=== PATIENT | female | born 1955 | race Caucasian/White ===

== ENCOUNTER 2017-12-08 14:32 | Inpatient (IN) | payer OTHER, SELFPAY ==
--- NOTE | 2017-12-08 15:38 | RAD REPORT ---
EXAM DESCRIPTION: RAD - Pelvis - 12/08/2017 3:20 pm CLINICAL HISTORY: Pelvic pain status fall FINDINGS: Subcapital moderately displaced impacted fracture involves the left femur. No dislocation is seen
--- NOTE | 2017-12-08 15:39 | RAD REPORT ---
EXAM DESCRIPTION: RAD - Femur Left - 12/08/2017 3:20 pm CLINICAL HISTORY: Left leg pain status post fall FINDINGS: Subcapital moderately displaced impacted fracture involves the left femur. No dislocation is seen .
[2017-12-08] MEDS ORDERED: MORPHINE 4 MG/ML SYR ONE (16:07)
[2017-12-08] MEDS ORDERED: ONDANSETRON 4 MG/2 ML VIAL ONE (16:08)
--- NOTE | 2017-12-08 16:14 | ER ---
Nurse's Notes [facility] Name: Adelaida Scott Age: 62 yrs Sex: Female : 1955 Arrival Date: 12/08/2017 Time: 14:31 Bed 18 Private MD: Diagnosis: Fracture of unspecified part of neck of left femur Presentation: 12/08 14:40 Presenting complaint: EMS states: She was sitting on the side of her bed and fell to [facility] the ground, denies hitting head, denies LOC, c/o left hip and leg pain. Care prior to arrival: Medication(s) given: Normal saline infusion, 1000 mL, IV initiated. 20 GA, in the right antecubital area, Glucose check: 192. Mechanism of Injury: Fall. Trauma event details: Injury occurred in the [facility], Injury occurred: at home. Injury occurred: December 08, 2017 Injury occurred at: 12:00. 14:40 Acuity: CLEMENTINA 3 [facility] 14:40 Method Of Arrival: EMS: [facility] 14:51 Transition of care: patient was not received from another setting of care. Onset of [facility] symptoms was December 08, 2017. Risk Assessment: Do you want to hurt yourself or someone else? Patient reports no desire to harm self or others. Initial Sepsis Screen: Does the patient meet any 2 criteria? No. Patient's initial sepsis screen is negative. Does the patient have a suspected source of infection? No. Patient's initial sepsis screen is negative. Triage Assessment: 14:51 Neuro: Reports none. [facility] Trauma Activation: Alert Physician: ED Physician; Name: Faustino; Notified At: 14:36; Arrived At: 14:36 Physician: General Surgeon; Name: ; Notified At: 14:36; Arrived At: Physician: Radiology; Name: Marimar; Notified At: 14:36; Arrived At: 14:37 Physician: Respiratory; Name: ; Notified At: 14:36; Arrived At: Physician: Lab; Name: ; Notified At: 14:36; Arrived At: Historical: - Allergies: 14:49 No Known Allergies; jl7 - Home Meds: 14:49 Cyclobenzaprine Oral [Active]; clonazepam Oral [Active]; Cymbalta oral oral [Active]; jl7 Wellbutrin Oral [Active]; tramadol Oral [Active]; - PMHx: 14:49 Hypertension; Depression; Insomnia; jl7 - Immunization history: Last tetanus immunization: unknown. - Family history:: not pertinent. - Social history:: Smoking status: Patient/guardian denies using tobacco, Patient uses alcohol, admits to "couple of beers" a day. 3-[address] drugs, marijuana, daily. - Ebola Screening: : No symptoms or risks identified at this time. - Hospitalizations: : No recent hospitalization is reported. Screenin:40 Abuse screen: Denies threats or abuse. Denies injuries from another. Tuberculosis jl7 screening: No symptoms or risk factors identified. 14:49 Nutritional screening: No deficits noted. Fall Risk Fall in past 12 months (25 points). jl7 Total Crawford Fall Scale indicates Low Risk Score (25-44 pts). Fall prevention measures have been instituted. Side Rails Up X 2 Placed close to Nursing Station Frequent Obs/Assesments occuring As available Patient and Family Educated on Fall Prevention Program and strategies. Primary Survey: 14:40 A: Airway: patent. Breathing/Chest: Respiratory pattern: regular, Respiratory effort: jl7 spontaneous, unlabored, Chest inspection: symmetrical rise and fall of the chest. Circulation: Skin color: pink. Disability Alert. 14:55 Reassessment Airway Airway Patent Breathing/Chest Respiratory pattern Regular jl7 Respiratory effort Spontaneous Unlabored Chest inspection Symmetrical Circulation Color Ty[place] Disability Alert. Secondary Survey: 14:55 HEENT: No deficits noted. Gastrointestinal: No deficits noted. : No deficits noted. jl7 Musculoskeletal: Range of motion: limited in left hip and left knee. Assessment: 14:40 General: Appears in no apparent distress. uncomfortable, Behavior is cooperative, jl7 agitated. Pain: Complains of pain in left thigh Pain currently is 8 out of 10 on a pain scale. Neuro: Level of Consciousness is awake, alert, obeys commands, Oriented to person, place, time, situation. EENT: No signs and/or symptoms were reported regarding the EENT system. Cardiovascular: Patient's skin is warm and dry. Respiratory: Airway is patent Respiratory effort is even, unlabored, Respiratory pattern is regular, symmetrical. Derm: Skin is pink, warm \\T\\ dry. Musculoskeletal: Range of motion: limited in left hip and left knee. 16:00 Reassessment: No changes from previously documented assessment. Patient and/or family jl7 updated on plan of care and expected duration. Pain level reassessed. Patient is alert, oriented x 3, equal unlabored respirations, skin warm/dry/pink. 17:00 Reassessment: Patient appears in no apparent distress at this time. Patient and/or jl7 family updated on plan of care and expected duration. Pain level reassessed. Patient is alert, oriented x 3, equal unlabored respirations, skin warm/dry/pink. 18:15 Reassessment: Miramontes's traction applied Patient states feeling better. jl7 19:45 General: Appears in no apparent distress. Behavior is calm, cooperative. Pain: ea Complains of pain in left knee Pain currently is 3 out of 10 on a pain scale. Neuro: Level of Consciousness is awake, alert, obeys commands, Oriented to person, place, time, situation. Cardiovascular: Patient's skin is warm and dry. Respiratory: Airway is patent Respiratory effort is even, unlabored, Respiratory pattern is regular, symmetrical. Derm: Skin is pink, warm \\T\\ dry. Musculoskeletal: Range of motion: limited in left knee Pt has miramontes traction to left knee leg. 20:00 Reassessment: Patient and/or family updated on plan of care and expected duration. Pain ea level reassessed. Patient is alert, oriented x 3, equal unlabored respirations, skin warm/dry/pink. Vital Signs: 14:40 BP 96 / 59; Pulse 85; Resp 13 S; Pulse Ox 100% on R/A; Weight 45.81 kg (R); Height 5 jl7 ft. 3 in. (160.02 cm) (R); Pain 8/10; 14:40 Temp 98.2(O); jl7 15:00 BP 104 / 73; Pulse 82; Resp 16 S; Pulse Ox 100% on R/A; jl7 15:30 BP 110 / 71; Pulse 83; Resp 16 S; Pulse Ox 100% on R/A; jl7 16:00 BP 113 / 69; Pulse 90; Resp 16 S; Pulse Ox 100% on R/A; jl7 16:26 BP 111 / 70; Pulse 86; Resp 16 S; Pulse Ox 100% on R/A; jl7 17:15 BP 108 / 75; Pulse 80; Resp 16 S; Pulse Ox 100% on R/A; jl7 18:00 BP 110 / 79; Pulse 84; Resp 16 S; Pulse Ox 100% on R/A; jl7 18:30 BP 103 / 69; Pulse 92; Resp 18 S; Pulse Ox 99% on R/A; jl7 19:40 BP 112 / 68; Pulse 82; Resp 18; Pulse Ox 99% ; ea 20:00 BP 103 / 70; Pulse 80; Resp 18; Temp 97.8; Pulse Ox 99% ; Pain 5/10; ea 14:40 Body Mass Index 17.89 (45.81 kg, 160.02 cm) jl7 [place] Coma Score: 14:40 Eye Response: spontaneous(4). Verbal Response: oriented(5). Motor Response: obeys jl7 commands(6). Total: 15. 19:40 Eye Response: spontaneous(4). Verbal Response: oriented(5). Motor Response: obeys ea commands(6). Total: 15. 20:00 Eye Response: spontaneous(4). Verbal Response: oriented(5). Motor Response: obeys ea commands(6). Total: 15. Trauma Score (Adult): 14:40 Eye Response: spontaneous(1); Verbal Response: oriented(1); Motor Response: obeys jl7 commands(2); Systolic BP: > 89 mm Hg(4); Respiratory Rate: 10 to 29 per min(4); [place] Score: 15; Trauma Score: 12 15:00 Eye Response: spontaneous(1); Verbal Response: oriented(1); Motor Response: obeys jl7 commands(2); Systolic BP: > 89 mm Hg(4); Respiratory Rate: 10 to 29 per min(4); [place] Score: 15; Trauma Score: 12 15:30 Eye Response: spontaneous(1); Verbal Response: oriented(1); Motor Response: obeys jl7 commands(2); Systolic BP: > 89 mm Hg(4); Respiratory Rate: 10 to 29 per min(4); [place] Score: 15; Trauma Score: 12 16:26 Eye Response: spontaneous(1); Verbal Response: oriented(1); Motor Response: obeys jl7 commands(2); Systolic BP: > 89 mm Hg(4); Respiratory Rate: 10 to 29 per min(4); [place] Score: 15; Trauma Score: 12 17:15 Eye Response: spontaneous(1); Verbal Response: oriented(1); Motor Response: obeys jl7 commands(2); Systolic BP: > 89 mm Hg(4); Respiratory Rate: 10 to 29 per min(4); [place] Score: 15; Trauma Score: 12 18:30 Eye Response: spontaneous(1); Verbal Response: oriented(1); Motor Response: obeys jl7 commands(2); Systolic BP: > 89 mm Hg(4); Respiratory Rate: 10 to 29 per min(4); [place] Score: 15; Trauma Score: 12 ED Course: 14:31 Patient arrived in ED. jl7 14:34 Kannan Harmon MD is Attending Physician. rn 14:39 Brant Cancino RN is Primary Nurse. jl7 14:40 Patient has correct armband on for positive identification. Bed in low position. Call jl7 light in reach. Side rails up X 1. 14:40 Patient maintains SpO2 saturation greater than 95% on room air. Thermoregulation: warm jl7 blanket given to patient. 14:40 Maintain EMS IV. Dressing intact. Good blood return noted. Site clean \\T\\ dry. Gauge \\T\\ jl 7 site: 20 Left AC. 14:43 Triage completed. jl7 14:46 EKG done, by soil technician. reviewed by Kannan Harmon MD. sm3 14:49 Pulse ox on. NIBP on. Warm blanket given. jl7 15:17 XRAY Pelvis In Process Unspecified. EDMS 15:17 XRAY Femur LEFT In Process Unspecified. EDMS 16:13 Liana Morrow MD is Hospitalizing Provider. rn 18:33 Arm band placed on right wrist. jl7 18:49 Primary Nurse role handed off by Brant Cancino, DULCE jl7 20:11 Andreea Bean, DULCE is Primary Nurse. ea 20:13 No provider procedures requiring assistance completed. Patient admitted, IV remains in ea place. Administered Medications: 16:10 Drug: morphine 2 mg Route: IVP; Site: left antecubital; jl7 16:30 Follow up: Response: No adverse reaction jl7 17:45 Follow up: Response: Pain is unchanged, physician notified jl7 18:00 Drug: Demerol 25 mg Route: IVP; Site: left antecubital; jl7 18:28 Follow up: Response: No adverse reaction; Pain is decreased jl7 Outcome: 16:14 Decision to Hospitalize by Provider. rn 18:32 Patient's length of stay in the Emergency Department was greater than 2 hours. awaiting jl7 room assignment Patient's length of stay extended due to 20:13 Admitted to Med/surg accompanied by tech, via stretcher, room 211, with chart, Report ea called to Pk CARDONA 20:13 Condition: stable 20:13 Instructed on the need for admit. 20:24 Patient left the ED. ea Signatures: Dispatcher [employer] EDMS Kannan Harmon MD MD rn Leal, Jahala RN DULCE jl7 Andreea Bean RN RN ea Montes, Shakira sm3 Corrections: (The following items were deleted from the chart) 18:39 14:40 Presenting complaint: EMS states: She was sitting on the side of her bad and fell jl7 to the ground, denies hitting head, denies LOC, c/o left hip and leg pain jl7 20:26 19:45 Musculoskeletal: Range of motion: limited in left knee pilar quezada
--- NOTE | 2017-12-08 16:14 | EDPHYS ---
Physician Documentation [facility] Name: Adelaida Scott Age: 62 yrs Sex: Female : 1955 Arrival Date: 12/08/2017 Time: 14:31 Bed 18 Private MD: ED Physician Kannan Harmon HPI: 12/08 14:44 This 62 yrs old Female presents to ER via EMS with complaints of Fall Injury. rn 14:44 Details of fall: The patient fell from a height, off furniture. Onset: The rn symptoms/episode began/occurred just prior to arrival. Associated injuries: The patient sustained left hip and thigh. Severity of symptoms: At their worst the symptoms were moderate, in the emergency department the symptoms are unchanged. The patient has not experienced similar symptoms in the past. Reports standing up on her bed checking if heater kicked in, sat, down, then fell to floor. Remembers fall, no LOC, denies hitting head, reports only pain to left hip and thigh. . Historical: - Allergies: 14:49 No Known Allergies; jl7 - Home Meds: 14:49 Cyclobenzaprine Oral [Active]; clonazepam Oral [Active]; Cymbalta oral oral [Active]; jl7 Wellbutrin Oral [Active]; tramadol Oral [Active]; - PMHx: 14:49 Hypertension; Depression; Insomnia; jl7 - Immunization history: Last tetanus immunization: unknown. - Family history:: not pertinent. - Social history:: Smoking status: Patient/guardian denies using tobacco, Patient uses alcohol, admits to "couple of beers" a day. 3-[address] drugs, marijuana, daily. - Ebola Screening: : No symptoms or risks identified at this time. - Hospitalizations: : No recent hospitalization is reported. ROS: 14:44 Constitutional: Negative for fever, chills, and weight loss, Eyes: Negative for injury, rn pain, redness, and discharge, Neck: Negative for injury, pain, and swelling, Cardiovascular: Negative for chest pain, palpitations, and edema, Respiratory: Negative for shortness of breath, cough, wheezing, and pleuritic chest pain, Abdomen/GI: Negative for abdominal pain, nausea, vomiting, diarrhea, and constipation, Back: Negative for injury and pain, MS/Extremity: + left hip and thigh pain Skin: Negative for injury, rash, and discoloration, Neuro: Negative for headache, weakness, numbness, tingling, and seizure. Exam: 14:44 Constitutional: This is a well developed, well nourished patient who is awake, alert, rn and in no acute distress. Head/Face: Normocephalic, atraumatic. Eyes: Pupils equal round and reactive to light, extra-ocular motions intact. Lids and lashes normal. Conjunctiva and sclera are non-icteric and not injected. Cornea within normal limits. Periorbital areas with no swelling, redness, or edema. Neck: NO midline tenderness Cardiovascular: Regular rate and rhythm with a normal S1 and S2. No gallops, murmurs, or rubs. Normal PMI, no JVD. No pulse deficits. Respiratory: Lungs have equal breath sounds bilaterally, clear to auscultation and percussion. No rales, rhonchi or wheezes noted. No increased work of breathing, no retractions or nasal flaring. Abdomen/GI: Soft, non-tender, with normal bowel sounds. No distension or tympany. No guarding or rebound. No evidence of tenderness throughout. MS/ Extremity: Pulses equal, no cyanosis. Neurovascular intact. Painful ROM to left knee and hip with flexion Neuro: Awake and alert, GCS 15, oriented to person, place, time, and situation. Cranial nerves II-XII grossly intact. Motor strength 5/5 in all extremities. Sensory grossly intact. Vital Signs: 14:40 BP 96 / 59; Pulse 85; Resp 13 S; Pulse Ox 100% on R/A; Weight 45.81 kg (R); Height 5 jl7 ft. 3 in. (160.02 cm) (R); Pain 8/10; 14:40 Temp 98.2(O); jl7 15:00 BP 104 / 73; Pulse 82; Resp 16 S; Pulse Ox 100% on R/A; jl7 15:30 BP 110 / 71; Pulse 83; Resp 16 S; Pulse Ox 100% on R/A; jl7 16:00 BP 113 / 69; Pulse 90; Resp 16 S; Pulse Ox 100% on R/A; jl7 16:26 BP 111 / 70; Pulse 86; Resp 16 S; Pulse Ox 100% on R/A; jl7 17:15 BP 108 / 75; Pulse 80; Resp 16 S; Pulse Ox 100% on R/A; jl7 18:00 BP 110 / 79; Pulse 84; Resp 16 S; Pulse Ox 100% on R/A; jl7 18:30 BP 103 / 69; Pulse 92; Resp 18 S; Pulse Ox 99% on R/A; jl7 19:40 BP 112 / 68; Pulse 82; Resp 18; Pulse Ox 99% ; ea 20:00 BP 103 / 70; Pulse 80; Resp 18; Temp 97.8; Pulse Ox 99% ; Pain 5/10; ea 14:40 Body Mass Index 17.89 (45.81 kg, 160.02 cm) jl7 [place] Coma Score: 14:40 Eye Response: spontaneous(4). Verbal Response: oriented(5). Motor Response: obeys jl7 commands(6). Total: 15. 19:40 Eye Response: spontaneous(4). Verbal Response: oriented(5). Motor Response: obeys ea commands(6). Total: 15. 20:00 Eye Response: spontaneous(4). Verbal Response: oriented(5). Motor Response: obeys ea commands(6). Total: 15. Trauma Score (Adult): 14:40 Eye Response: spontaneous(1); Verbal Response: oriented(1); Motor Response: obeys jl7 commands(2); Systolic BP: > 89 mm Hg(4); Respiratory Rate: 10 to 29 per min(4); Dionna Score: 15; Trauma Score: 12 15:00 Eye Response: spontaneous(1); Verbal Response: oriented(1); Motor Response: obeys jl7 commands(2); Systolic BP: > 89 mm Hg(4); Respiratory Rate: 10 to 29 per min(4); [place] Score: 15; Trauma Score: 12 15:30 Eye Response: spontaneous(1); Verbal Response: oriented(1); Motor Response: obeys jl7 commands(2); Systolic BP: > 89 mm Hg(4); Respiratory Rate: 10 to 29 per min(4); [place] Score: 15; Trauma Score: 12 16:26 Eye Response: spontaneous(1); Verbal Response: oriented(1); Motor Response: obeys jl7 commands(2); Systolic BP: > 89 mm Hg(4); Respiratory Rate: 10 to 29 per min(4); [place] Score: 15; Trauma Score: 12 17:15 Eye Response: spontaneous(1); Verbal Response: oriented(1); Motor Response: obeys jl7 commands(2); Systolic BP: > 89 mm Hg(4); Respiratory Rate: 10 to 29 per min(4); [place] Score: 15; Trauma Score: 12 18:30 Eye Response: spontaneous(1); Verbal Response: oriented(1); Motor Response: obeys jl7 commands(2); Systolic BP: > 89 mm Hg(4); Respiratory Rate: 10 to 29 per min(4); [place] Score: 15; Trauma Score: 12 MDM: 14:34 Patient medically screened. rn 16:12 Differential diagnosis: contusion, fracture. Data reviewed: vital signs, nurses notes, rn radiologic studies, plain films, and as a result, I will discharge patient. Counseling: I had a detailed discussion with the patient and/or guardian regarding: the historical points, exam findings, and any diagnostic results supporting the discharge/admit diagnosis, radiology results, the need for further work-up and treatment in the hospital. Admission orders: after a detailed discussion of the patient's condition and case, the admit orders are written by me. 12/08 16:00 Order name: CBC with Diff; Complete Time: 17:12 rn 12/08 16:00 Order name: Basic Metabolic Panel; Complete Time: 17:12 rn 12/08 16:00 Order name: PT-INR; Complete Time: 17:12 rn 12/08 16:00 Order name: Ptt, Activated; Complete Time: 17:12 rn 12/08 16:37 Order name: CBC Smear Scan; Complete Time: 17:12 EDMS 12/08 19:07 Order name: Urine Dipstick--Ancillary (enter results) eb 12/08 14:35 Order name: XRAY Pelvis; Complete Time: 15:49 rn 12/08 14:35 Order name: XRAY Femur LEFT; Complete Time: 15:49 rn 12/08 14:36 Order name: EKG; Complete Time: 14:36 rn 12/08 14:36 Order name: EKG - Nurse/Tech; Complete Time: 15:42 rn 12/08 16:00 Order name: IV; Complete Time: 16:19 rn 12/08 19:52 Order name: Urine Dipstick-Ancillary EDMI 12/08 18:08 Order name: Splint - Posterior Leg: with bucks traction; Complete Time: 18:27 rn Administered Medications: 16:10 Drug: morphine 2 mg Route: IVP; Site: left antecubital; jl7 16:30 Follow up: Response: No adverse reaction jl7 17:45 Follow up: Response: Pain is unchanged, physician notified jl7 18:00 Drug: Demerol 25 mg Route: IVP; Site: left antecubital; jl7 18:28 Follow up: Response: No adverse reaction; Pain is decreased jl7 Disposition: 12/08/17 16:14 Hospitalization ordered by Liana Morrow for Inpatient Admission. Preliminary diagnosis is Fracture of unspecified part of neck of left femur. - Bed requested for Telemetry/MedSurg (Inpatient). - Status is Inpatient Admission. ea - Condition is Stable. - Problem is new. - Symptoms have improved. UTI on Admission? No Signatures: Dispatcher [employer] EDMI Kannan Harmon MD MD rn Leal, Jahala, RN RN jl7 Andreea Bean RN RN ea Botello, Elizabeth eb Corrections: (The following items were deleted from the chart) 18:32 16:14 Hospitalization Ordered by Liana Morrow MD for Inpatient Admission. Preliminary eb diagnosis is Fracture of unspecified part of neck of left femur. Bed requested for Telemetry/MedSurg (Inpatient). Status is Inpatient Admission. Condition is Stable. Problem is new. Symptoms have improved. UTI on Admission? No. rn 20:24 18:32 12/08/2017 16:14 Hospitalization Ordered by Liana Morrow MD for Inpatient ea Admission. Preliminary diagnosis is Fracture of unspecified part of neck of left femur. Bed requested for Telemetry/MedSurg (Inpatient). Status is Inpatient Admission. Condition is Stable. Problem is new. Symptoms have improved. UTI on Admission? No. eb
[2017-12-08 16:32] LABS: Absolute Lymphocytes (CBC) 0.4 K/uL (0.7-4.9); Absolute Monocytes 0.7 K/uL (0.1-1.3); Absolute Neutrophil 9.9 K/uL (1.8-8.0); Basophils % 0.2 % (0-1.3); Hematocrit 29.8 % (36.0-45.0); Lymphocytes % 3.9 % (15.3-44.8); MCH 31.4 pg (27.0-35.0); MCV 91.6 fL (80-100); MPV 8.1 fL (7.6-11.3); Monocytes % 6.5 % (3.3-12.3); RBC Red Blood Cell Count 3.25 M/uL (3.86-4.86)
[2017-12-08 16:42] LABS: Potassium 4.2 mmol/L (3.5-5.1)
[2017-12-08 16:44] LABS: Protime INR 0.88
[2017-12-08 17:08] LABS: Urine White Blood Cell Casts OK
[2017-12-08 17:09] LABS: Blood Morphology Comment NOT SEEN (NOT SEEN); Platelet Estimate ADEQ
--- NOTE | 2017-12-08 17:09 | P.HP ---
Certification for Inpatient Patient admitted to: Inpatient With expected LOS: >2 Midnights Patient will require the following post-hospital care: None Practitioner: I am a practitioner with admitting privileges, knowledge of patient current condition, hospital course, and medical plan of care. Services: Services provided to patient in accordance with Admission requirements found in Title 42 Section 412.3 of the Code of Federal Regulations Patient History Date of Service: 12/08/17 Primary Care Provider: Unknown Reason for admission: Hip Fracture History of Present Illness: 62-year-old female with a significant past medical history of high blood pressure who presented to the ED after having mechanical fall. Patient stated that she was sitting at the edge of her bed and had a fall this morning. She fell on the left side of her hip and thigh. The patient started having excruciating pain and was getting progressively worse and thus decided to come to the ER for further workup. In ER patient was found to have left femur fracture and thus was admitted for further treatment Home medications list reviewed: Yes - Past Medical/Surgical History Has patient received pneumonia vaccine in the past: Yes Diabetic: No -: HTN Past Surgical History: Reviewed- Non-Contributory - Family History Family History: Reviewed- Non-Contributory - Social History Smoking Status: Never smoker Smoking therapy provided: No Patient receptive to therapy: No Alcohol use: No CD- Drugs: No Caffeine use: No Place of Residence: Home Review of Systems 10-point ROS is otherwise unremarkable Physical Examination - Physical Exam General: Alert, In no apparent distress HEENT: Atraumatic, PERRLA, Mucous membr. moist/pink, EOMI, Sclerae nonicteric Neck: Supple, 2+ carotid pulse no bruit, No LAD, Without JVD or thyroid abnormality Respiratory: Clear to auscultation bilaterally, Normal air movement Cardiovascular: Regular rate/rhythm, Normal S1 S2 Gastrointestinal: Normal bowel sounds, No tenderness Musculoskeletal: No tenderness Integumentary: No rashes Neurological: Normal gait, Normal speech, Normal strength at 5/5 x4 extr, Normal tone, Normal affect Lymphatics: No axilla or inguinal lymphadenopathy - Studies Laboratory Data (last 24 hrs) 12/08/17 16:05: PT 10.4, INR 0.88, APTT 27.2 12/08/17 16:05: Sodium 127 L, Potassium 4.2, BUN 24 H, Creatinine 1.10, Glucose 165 H 12/08/17 16:05: WBC 11.1 H, Hgb 10.2 L, Hct 29.8 L, Plt Count 323 Assessment and Plan - Problems (Diagnosis) (1) Fall Current Visit: Yes Status: Acute Plan: Mechanical Fall -Fall precautions. -PT/OT consulted Qualifiers: Encounter type: initial encounter Qualified Code(s): W19.XXXA - Unspecified fall, initial encounter (2) Femur fracture, left Current Visit: Yes Status: Acute Plan: Left Femur Fracture S.p Fall -Orthopedics Surgeon Consulted. Awaiting reccs -NPO, IV fluids and IV pain Medication -Pending Surgical Procedure -Lab work done along with EKG Qualifiers: Encounter type: initial encounter Femur location: unspecified portion of femur Fracture type: closed (3) HTN (hypertension) Current Visit: Yes Status: Chronic Plan: Restart Home medication Qualifiers: Hypertension type: essential hypertension Qualified Code(s): I10 - Essential (primary) hypertension Discharge Plan: Other Plan to discharge in: 72 Hours - Advance Directives Does patient have a Living Will: No Does patient have a Durable POA for Healthcare: No - Code Status/Comfort Care Code Status Assessed: Yes Critical Care: No
[2017-12-08] MEDS ORDERED: MEPERIDINE HCL 25 MG/0.5 ML ONE (17:57)
[2017-12-08 19:52] LABS: Urine Blood NEGATIVE (NEG); Urine Glucose TRACE (NEG); Urine Protein NEGATIVE (NEG); Urine Specific Gravity 1.015 (1.005-1.030); Urine pH 5.5 (5.0-7.0)
[2017-12-08] MEDS ORDERED: ONDANSETRON 4 MG/2 ML VIAL IV PRN (21:15)
[2017-12-08] MEDS ORDERED: ACETAMINOPHEN 500 MG TAB PO PRN (21:15)
[2017-12-08] MEDS: NA CHLORIDE 0.9% 1,000 ML IV SCH (21:36)
[2017-12-08] MEDS ORDERED: clonazePAM 1 MG TAB PO ONE ×2 (22:27→23:30)
[2017-12-08] MEDS ORDERED: TEMAZEPAM 15 MG CAP PO ONE ×2 (22:28→22:46)
[2017-12-08] MEDS ORDERED: DULOXETINE 30 MG CAP PO ONE (23:00)
[2017-12-09] MEDS: MORPHINE 2 MG/ML SYR IV PRN ×2 (02:34→09:27)
[2017-12-09 05:26] LABS: Absolute Lymphocytes (CBC) 1.2 K/uL (0.7-4.9); Absolute Monocytes 0.9 K/uL (0.1-1.3); Basophils % 0.7 % (0-1.3); Eosinophils % 0.5 % (0-4.4); Hematocrit 27.9 % (36.0-45.0); MCH 32.9 pg (27.0-35.0); MPV 8.1 fL (7.6-11.3); Monocytes % 11.9 % (3.3-12.3); RBC Red Blood Cell Count 3.03 M/uL (3.86-4.86)
[2017-12-09] MEDS: NA CHLORIDE 0.9% 1,000 ML IV SCH ×3 (05:36→23:56)
[2017-12-09 05:42] LABS: Albumin 3.3 g/dL (3.4-5.0); Bilirubin Total 0.4 mg/dL (0.2-1.0); Potassium 4.1 mmol/L (3.5-5.1); Protein, Total 6.3 g/dL (6.4-8.2)
[2017-12-09] MEDS ORDERED: PROPOFOL 200 MG/20 ML VIAL IV ONE (10:34)
[2017-12-09] MEDS ORDERED: LIDOCAINE 1% MPF 5 ML VIAL ONE (10:34)
[2017-12-09] MEDS ORDERED: FENTANYL CITR 100 MCG/2 ML ONE (10:34)
[2017-12-09] MEDS ORDERED: MIDAZOLAM HCL 2 MG/2 ML INJ ONE (10:34)
[2017-12-09] MEDS ORDERED: ONDANSETRON HCL 40 MG/20 ML VIAL ONE (10:36)
[2017-12-09] MEDS ORDERED: Ringers Lactate 1,000 ML IV ONE (10:49)
[2017-12-09] MEDS ORDERED: CEFAZOLIN/SWI 1gm 1 GM/10 ML SYR ONE (11:10)
[2017-12-09] MEDS ORDERED: BUPIVACA 0.25%/EPI 0.0005% MDV 50 ML VIAL ONE (11:17)
[2017-12-09] MEDS ORDERED: CYCLOBENZAPRINE 10 MG TAB PO PRN (11:35)
[2017-12-09] MEDS ORDERED: TRAMADOL HCL 50 MG TAB PO PRN (11:35)
--- NOTE | 2017-12-09 11:35 | P.PN ---
Subjective Date of Service: 12/09/17 Primary Care Provider: Unknown Chief Complaint: Hip Fracture Pt seen and examined at bedside. Chart Reviewed. Patient Awaiting Surgical Procedure today. No c/o overnight. Pain well controlled. Review of Systems 10-point ROS is otherwise unremarkable Physical Examination - Vital Signs Temperature: 98.4 F Blood Pressure: 137/83 Pulse: 95 Respirations: 16 Pulse Ox (%): 96 - Physical Exam General: Alert, In no apparent distress HEENT: Atraumatic, PERRLA, EOMI Neck: Supple, JVD not distended Respiratory: Clear to auscultation bilaterally, Normal air movement Cardiovascular: Regular rate/rhythm, Normal S1 S2 Gastrointestinal: Normal bowel sounds, No tenderness Musculoskeletal: No tenderness Integumentary: No rashes Neurological: Normal speech, Normal tone, Normal affect Lymphatics: No axilla or inguinal lymphadenopathy - Studies Laboratory Data (last 24 hrs) 12/08/17 16:05: PT 10.4, INR 0.88, APTT 27.2 12/08/17 16:05: Sodium 127 L, Potassium 4.2, BUN 24 H, Creatinine 1.10, Glucose 165 H 12/08/17 16:05: WBC 11.1 H, Hgb 10.2 L, Hct 29.8 L, Plt Count 323 Medications List Reviewed: Yes Assessment And Plan - Current Problems (Diagnosis) (1) Fall Current Visit: Yes Status: Acute Plan: Mechanical Fall -Fall precautions. -PT/OT consulted Qualifiers: Encounter type: initial encounter Qualified Code(s): W19.XXXA - Unspecified fall, initial encounter (2) Femur fracture, left Current Visit: Yes Status: Acute Plan: Left Femur Fracture S.p Fall -Orthopedics Surgeon Consulted. Reccs Appreciated -NPO, IV fluids and IV pain Medication -Pending Surgical Procedure -Lab work done along with EKG Qualifiers: Encounter type: initial encounter Femur location: unspecified portion of femur Fracture type: closed (3) HTN (hypertension) Current Visit: Yes Status: Chronic Plan: Restart Home medication Qualifiers: Hypertension type: essential hypertension Qualified Code(s): I10 - Essential (primary) hypertension Discharge Plan: Other Plan to discharge in: 72 Hours - Code Status/Comfort Care Code Status Assessed: Yes Critical Care: No
[2017-12-09] MEDS ORDERED: KETOROLAC 30 MG/ML INJ ONE (11:43)
--- NOTE | 2017-12-09 12:28 | EKG ---
Test Date: 2017-12-08 Test Time: 14:39:38 Statistical Secretary: TRACY MEASUREMENT RESULTS: Intervals: Rate: 84 MA: 160 QRSD: 82 QT: 378 QTc: 446 [place]: P: 66 MA: 160 QRS: 14 T: 66 INTERPRETIVE STATEMENTS: Normal sinus rhythm Normal ECG Compared to ECG 09/27/1996 09:30:00 No significant changes Electronically Signed On 12-09-17 12:25:51 CDT by Galen Mathew
[2017-12-09] MEDS ORDERED: MEPERIDINE HCL 25 MG/0.5 ML ONE (12:47)
[2017-12-09] MEDS ORDERED: DOCUSATE NA 100 MG CAP PO PRN (12:55)
--- NOTE | 2017-12-09 12:55 | P.BOP ---
Preoperative diagnosis: IMPACTED LEFT HIP PROX.FEMUR SUBCAPITAL NECK FRACTURE Postoperative diagnosis: SAME Primary procedure: PERCUTANEOUS PIN FIXATION LEFT HIP FRACTURE w/DAWNA PINS x 3 Segmental Wall Installer: Jaimn Chapman Estimated blood loss: 30mL Specimen: NONE Anesthesia: General Complications: None Implants: TONEY PINS x 3 Fluids & blood products: INJ 0.25%MARCAINE 20 mL Transferred to: Recovery Room Condition: Good
[2017-12-09] MEDS ORDERED: NA CHLORIDE 0.9% 1,000 ML ONE (13:20)
--- NOTE | 2017-12-09 13:23 | RAD REPORT ---
EXAM DESCRIPTION: RAD - Hip In Or - 12/09/2017 1:03 pm CLINICAL HISTORY: Left femoral fracture FINDINGS: Multiple intraoperative fluoroscopic spot images of the left hip obtained They demonstrate pins affixing a proximal left femoral fracture. Fluoroscopy 1.4 minutes. Twenty-five fluoroscopic spot images obtained. The procedure performed by Dr. Chapman
--- NOTE | 2017-12-09 17:03 | CON ---
Date of Consultation: 12/09/2017 Requested by Liana Morrow MD regarding left hip fracture. History Of Present Illness: This 62-year-old female presented to the ED with complaints of falling f rom the edge of the bed to impact the left hip. The patient had persistent significant pain and was brought to the emergency room via EMS. She was found to have an impacted left hip fracture, subcapit al in location and orthopedics is consulted for management of the hip fracture. Allergies: NO KNOWN ALLERGIES. Medications: Cyclobenzaprine, clonazepam, Cymbalta, Wellbutrin, tramadol. Past Medical History: Hypertension, depression, insomnia. Social History: The patient does not use tobacco and uses alcohol 3 to 4 days per week describing be er as a couple of beers a day. Marijuana use daily. Review of Systems: 10-point of review is negative. Physical Examination: General: This is a well-developed, well-nourished 62-year-old female. Vital signs: Stable with blood pressure 96/59, pulse 85, respirations 13, pulse oximeter was 100% on room air. HEENT: Within normal limits. Neck: Supple. Chest: Clear to auscultation. Heart: Regular rate and rhythm. Abdomen: Soft and nontender. Active bowel sounds are present. Genital and rectal exam: Deferred. Extremities: On examination of the extremities, the patient has dorsal pedis and posterior tibialis pulses 1+. Neurovascular exam: Intact. The hip is not significantly rotated or shortened. Diagnostic Studies: X-ray has shown an impacted femoral neck fracture in the subcapital area of the proximal left femur. Laboratory report shows hemoglobin of 10.0, down just from 10.2 on admission. White blood cell count is 7.2 with 70% neutrophils. Coag study is Protime 10.4, INR 0.88. Blood chemistry showed the sodi um on admission was 127, but has increased to 130 by morning. GFR has improved from 50 to 63. Gluco se this morning is 116. Serum total protein is low at 6.3. Assessment: This patient has a relatively stable appearing impacted subcapital femoral neck fracture . After discussing risks and benefits with the patient with all questions answered, she has elected to proceed with percutaneous pin fixation for her left hip impacted femoral neck fracture. AC/YOLANDE Voice ID: [id number] Report ID: [id number]
[2017-12-09] MEDS: CEFAZOLIN/SWI 1gm 1 GM/10 ML SYR IV SCH ×2 (17:26→22:39)
[2017-12-09] MEDS: clonazePAM 1 MG TAB PO PRN (17:48)
--- NOTE | 2017-12-09 19:03 | OP ---
Date of Procedure: 12/09/2017 Surgeon: Jamin Chapman MD Core Microarchitect: Dr. Cristian Chapman. Preoperative Diagnosis: Impacted left hip proximal femur subcapital neck fracture. Postoperative Diagnosis: Impacted left hip proximal femur subcapital neck fracture. Procedure: Percutaneous pin fixation of left hip fracture with Fournier pins x3. Indications: This 62-year-old female was having difficulty since she slipped off the edge of the bed and impacted her left hip with impacted femoral neck fracture. The patient was brought to the [facility] and has been prepared for surgery and will be taken back. The patient was taken to the operating room and given a general anesthetic. She was then moved onto the fracture table and position was ad justed so that the left hip was visualized with the C-arm in position between the legs. The reductio n was adjusted by positioning the traction boot, and then prepping was carried out for the left hip a nd thigh in the usual manner. A vertical isolation drape was applied and the C-arm was used to help pick the appropriate entry point and angle for insertion of percutaneous pins. A 3/32 smooth Steinma nn pin was used as a guide pin, placing it in the center of the femoral neck and femoral head with th e appropriate alignment for Fournier pins to follow. Once the pin was appropriately positioned, a sec ond 3/32 Steinmann pin was used to measure the appropriate length, and the appropriate length Fournier pin was chosen and drilled in just below the level of the smooth Steinmann pin in a parallel fashion . The C-arm checked in AP and lateral views verified good position for the first pin. The second pi n chosen was above the Steinmann pin and therefore it was 1 pin slightly shorter than the initial pin . It was inserted and found to be in good position. A third pin was applied. All 3 pins drilled to have the hex head rest against the lateral cortex of the femur, and then the scored proximal portion of the pin was broken free and removed. C-arm verified that the 3 pins were in excellent position t o stabilize the femoral head fragment to prevent displacement. The wound was irrigated profusely and then 2-0 Vicryl was used to close fascial and subcutaneous layers with interrupted sutures. The inc ision was then injected with 20 mL of 0.25% Marcaine plain. Estimated blood loss 30 mL. The patient was then taken from the fracture table and placed back in the hospital bed. After a sterile Aquacel bandage was applied to protect her puncture wound on the lateral left thigh. She was taken to [facility] room having tolerated this procedure well. AC/YOLANDE Voice ID: [id number] Report ID: [id number]
[2017-12-09] MEDS: TEMAZEPAM 15 MG CAP PO SCH (20:46)
[2017-12-09] MEDS: DULOXETINE 30 MG CAP PO SCH (20:46)
[2017-12-09] MEDS: HYDROCODONE/APAP 7.5/325 MG TAB PO PRN (21:37)
[2017-12-09] MEDS ORDERED: DULOXETINE 30 MG CAP PO ONE (23:00)
[2017-12-10] MEDS: NA CHLORIDE 0.9% 1,000 ML IV SCH (03:15)
[2017-12-10 06:42] LABS: Hematocrit 24.6 % (36.0-45.0)
[2017-12-10] MEDS: HYDROCODONE/APAP 7.5/325 MG TAB PO PRN ×2 (08:06→18:36)
--- NOTE | 2017-12-10 08:44 | P.PN ---
Date of Service: 12/10/17 (POD#1) S: PATIENT COMFORTABLE IN BED THIS MORNING. ANXIOUS TO START WITH PT TODAY. O: VSS, PAIN LISTED 0,0,6,6/10. HGB 8.5 WAS10.1 PRE-OP. NV EXAM INTACT. SHANNON' S SIGN NEGATIVE. A: POD#1, PATIENT TO MOBILIZE WITH TOE TOUCH WB LLE. P: MOBILIZE TODAY. XARELTO STARTING TODAY.
[2017-12-10] MEDS: BUPROPRION HCL S.R. 150MG TAB PO SCH (09:00)
[2017-12-10] MEDS: DULOXETINE 30 MG CAP PO SCH ×2 (10:06→20:21)
[2017-12-10] MEDS: AMLODIPINE 10 MG TAB PO SCH (10:06)
[2017-12-10] MEDS: RIVAROXABAN 10 MG TABLET PO SCH (10:06)
[2017-12-10] MEDS: LISINOPRIL 10 MG TAB PO SCH (10:06)
--- NOTE | 2017-12-10 14:56 | P.PN ---
Subjective Date of Service: 12/10/17 Primary Care Provider: Unknown Chief Complaint: Hip Fracture Pt seen and examined at bedside. Chart Reviewed. No c/o overnight. Pain well controlled. S/p ORIF Review of Systems 10-point ROS is otherwise unremarkable Physical Examination - Vital Signs Temperature: 98.6 F Blood Pressure: 147/83 Pulse: 90 Respirations: 16 Pulse Ox (%): 97 - Physical Exam General: Alert, In no apparent distress HEENT: Atraumatic, PERRLA, EOMI Neck: Supple, JVD not distended Respiratory: Clear to auscultation bilaterally, Normal air movement Cardiovascular: Regular rate/rhythm, Normal S1 S2 Gastrointestinal: Normal bowel sounds, No tenderness Musculoskeletal: No tenderness Integumentary: No rashes Neurological: Normal speech, Normal tone, Normal affect Lymphatics: No axilla or inguinal lymphadenopathy - Studies Medications List Reviewed: Yes Assessment And Plan - Current Problems (Diagnosis) (1) Fall Current Visit: Yes Status: Acute Plan: Mechanical Fall -Fall precautions. -PT/OT consulted Qualifiers: Encounter type: initial encounter Qualified Code(s): W19.XXXA - Unspecified fall, initial encounter (2) Femur fracture, left Current Visit: Yes Status: Acute Plan: Left Femur Fracture S.p Fall -Orthopedics Surgeon Consulted. Reccs Appreciated -S/P ORIF pOD# 1. Doing well -IV pain medication for now Qualifiers: Encounter type: initial encounter Femur location: unspecified portion of femur Fracture type: closed (3) HTN (hypertension) Current Visit: Yes Status: Chronic Plan: Restart Home medication Qualifiers: Hypertension type: essential hypertension Qualified Code(s): I10 - Essential (primary) hypertension Discharge Plan: Other Plan to discharge in: 48 Hours - Code Status/Comfort Care Code Status Assessed: Yes Critical Care: No
[2017-12-10] MEDS: TEMAZEPAM 15 MG CAP PO SCH (20:21)
[2017-12-11] MEDS: HYDROCODONE/APAP 7.5/325 MG TAB PO PRN ×2 (03:13→13:23)
[2017-12-11 06:24] LABS: Hematocrit 25.3 % (36.0-45.0)
[2017-12-11] MEDS: AMLODIPINE 10 MG TAB PO SCH (08:55)
[2017-12-11] MEDS: DULOXETINE 30 MG CAP PO SCH ×2 (08:56→20:57)
[2017-12-11] MEDS: RIVAROXABAN 10 MG TABLET PO SCH (08:56)
[2017-12-11] MEDS: LISINOPRIL 10 MG TAB PO SCH (08:56)
[2017-12-11] MEDS: BUPROPRION HCL S.R. 150MG TAB PO SCH (09:04)
--- NOTE | 2017-12-11 11:11 | P.PN ---
Subjective Date of Service: 12/11/17 Primary Care Provider: Unknown Chief Complaint: Hip Fracture Pt seen and examined at bedside. Chart Reviewed. No c/o overnight. Pain well controlled. S/p ORIF Review of Systems 10-point ROS is otherwise unremarkable Physical Examination - Vital Signs Temperature: 98.6 F Blood Pressure: 136/76 Pulse: 96 Respirations: 16 Pulse Ox (%): 97 - Physical Exam General: Alert, In no apparent distress HEENT: Atraumatic, PERRLA, EOMI Neck: Supple, JVD not distended Respiratory: Clear to auscultation bilaterally, Normal air movement Cardiovascular: Regular rate/rhythm, Normal S1 S2 Gastrointestinal: Normal bowel sounds, No tenderness Musculoskeletal: No tenderness Integumentary: No rashes Neurological: Normal speech, Normal tone, Normal affect Lymphatics: No axilla or inguinal lymphadenopathy - Studies Medications List Reviewed: Yes Assessment And Plan - Current Problems (Diagnosis) (1) Fall Onset Date: 12/11/17 Current Visit: Yes Status: Acute Plan: Mechanical Fall -Fall precautions. -PT/OT consulted Qualifiers: Encounter type: initial encounter Qualified Code(s): W19.XXXA - Unspecified fall, initial encounter (2) Femur fracture, left Onset Date: 12/11/17 Current Visit: Yes Status: Acute Plan: Left Femur Fracture S.p Fall -Orthopedics Surgeon Consulted. Reccs Appreciated -S/P ORIF pOD# 2. Doing well -IV pain medication for now Qualifiers: Encounter type: initial encounter Femur location: unspecified portion of femur Fracture type: closed (3) HTN (hypertension) Onset Date: 12/11/17 Current Visit: Yes Status: Chronic Plan: Restart Home medication Qualifiers: Hypertension type: essential hypertension Qualified Code(s): I10 - Essential (primary) hypertension Discharge Plan: Home Plan to discharge in: 48 Hours - Code Status/Comfort Care Code Status Assessed: Yes Critical Care: No
--- NOTE | 2017-12-11 18:25 | P.PN ---
Date of Service: 12/11/17 (POD#2) S: PATIENT COMFORTABLE IN BED THIS MORNING. WENT 250 FEET WITH PHYSICAL THERAPY YESTERDAY. O: VSS, PAIN LISTED 0,0,6,0/10. HGB 8.6 WAS STABLE. THIS PATIENT WITH 250 FEET WITH EACH THERAPY VISIT TODAY, BUT THERE WAS CONCERN THAT THE PATIENT WILL BE ALONE AT HOME AND IS A HIGH FALL RISK WHILE TOUCHDOWN WEIGHTBEARING FOR THE LEFT LOWER EXTREMITY. THE PATIENT HAS MENTIONED AFTER THE FIRST DAY OF THERAPY THERE WAS SCIATIC PAIN IN HER RIGHT LOWER EXTREMITY WHICH HAS BEEN A PROBLEM FOR A COUPLE OF YEARS. THERE ARE 3 STEPS FOR THE PATIENT TO ENTER HOME. NV EXAM INTACT. SHANNON'S SIGN NEGATIVE. A: POD#2, PATIENT TO CONTINUE TO MOBILIZE WITH TOE TOUCH WB LLE. SOCIAL SERVICE REQUESTED TO INITIATE SNU OPTIONS IN CASE THEY BECOME NECESSARY FOR POST HOSPITAL CARE P: CONTINUED TO MOBILIZE.
[2017-12-11] MEDS: TEMAZEPAM 15 MG CAP PO SCH (21:00)
[2017-12-12 04:58] LABS: Hematocrit 25.2 % (36.0-45.0)
[2017-12-12 04:59] LABS: Magnesium 1.8 mg/dL (1.8-2.4); Phosphorus 3.9 mg/dL (2.5-4.9); Potassium 4.1 mmol/L (3.5-5.1)
[2017-12-12] MEDS: BUPROPRION HCL S.R. 150MG TAB PO SCH (09:51)
[2017-12-12] MEDS: LISINOPRIL 10 MG TAB PO SCH (09:52)
[2017-12-12] MEDS: DULOXETINE 30 MG CAP PO SCH ×2 (09:52→20:55)
[2017-12-12] MEDS: RIVAROXABAN 10 MG TABLET PO SCH (09:52)
[2017-12-12] MEDS: AMLODIPINE 10 MG TAB PO SCH (09:52)
--- NOTE | 2017-12-12 10:43 | P.PN ---
Date of Service: 12/12/17 (POD#3) S: PATIENT SITTING IN BEDSIDE CHAIR THIS MORNING. DENIES PAIN, LAST NORCO 7.5 ~ 2:30 PM YESTERDAY. NO MORPHINE SINCE BEFORE SURGERY. O: VSS, HGB 8.8 STABLE. THIS PATIENT HAS WORKED WITH THERAPY TODAY, BUT NO NOTE AVAILABLE FOR REVIEW YET. SS SAW PATIENT AND SHE RELATES APPLICATION TO 5TH FLOOR REHAB HAS BEEN SUBMITTED. SCIATIC PAIN IN HER RIGHT ANTERIOR ANKLE MINIMAL TODAY. BANDAGE CLEAN AND DRY. NV EXAM INTACT. SHANNON'S SIGN NEGATIVE. A: POD#3, PATIENT MAKING GOOD PROGRESS. P: CONTINUE TO MOBILIZE TOLERATED.
[2017-12-12] MEDS: HYDROCODONE/APAP 7.5/325 MG TAB PO PRN ×2 (13:04→18:03)
--- NOTE | 2017-12-12 19:00 | PN ---
Date of Progress Note: 12/12/2017 Subjective: The patient seen and examined. Chart reviewed and case discussed with RN. The patient reports her pain is well controlled, otherwise doing well with physical therapy. Able to sit at side of bed and transfer to chair. Review of Systems: Negative except as above. Medications: List reviewed. Physical Examination: Vital Signs: Temperature 97.2, heart rate 105, blood pressure 131/79, respirations 17, O2 100% on room air. General: Awake, alert, oriented x3, not in any acute distress. Elderly female , frail, cachectic. BMI 19. CV: S1 and S2. Peripheral pulses present. No murmurs. Respiratory: Clear to auscultation bilaterally. No wheezing or stridor. Gastrointestinal: Abdomen is soft, nontender, nondistended. Positive bowel sounds. Extremities: No clubbing, cyanosis, or edema. Musculoskeletal: Left hip incision site clean, dry, and intact. Mild tenderness to palpation. Neurologic: Nonfocal. Laboratory Data: Sodium 132, potassium 4.1, chloride 98, CO2 27, BUN 11, creatinine 0.8, glucose 104, calcium 8.7, phosphorus 2.9, magnesium 1.8. H and H 8.8 and 25.2. Assessment And Plan: A 62-year-old female with: 1. Status post mechanical fall. Continue PT/OT, fall precaution. 2. Left femur fracture initial encounter, closed, status post open reduction and internal fixation, postoperative day #3. Dr. Chapman on board. The patient doing well working with physical therapy. Transfer to chair. Awaiting rehab placement. 3. Essential hypertension, stable. We will continue to monitor blood pressure. Resume home medications as appropriate. 4. Acute blood loss anemia likely secondary to recent hip fracture. We will continue to monitor, H and H stable. The patient's vital signs are stable. Transfuse as needed. 5. The patient will continue gastrointestinal and deep venous thrombosis prophylaxis, post hip surgery. Will transfer to inpatient rehab once accepted. 6. Hyponatremia: Monitor Na level. SA/MODL Voice ID: [id number] Report ID: [id number] MARIO
[2017-12-12] MEDS: TEMAZEPAM 15 MG CAP PO SCH (20:55)
[2017-12-13] MEDS: HYDROCODONE/APAP 7.5/325 MG TAB PO PRN ×2 (01:41→17:38)
[2017-12-13 05:34] LABS: Hematocrit 27.2 % (36.0-45.0)
[2017-12-13 05:58] LABS: Potassium 4.4 mmol/L (3.5-5.1)
[2017-12-13] MEDS: BUPROPRION HCL S.R. 150MG TAB PO SCH (08:50)
[2017-12-13] MEDS: RIVAROXABAN 10 MG TABLET PO SCH (08:51)
[2017-12-13] MEDS: DULOXETINE 30 MG CAP PO SCH ×2 (08:51→20:12)
[2017-12-13] MEDS: LISINOPRIL 10 MG TAB PO SCH (08:52)
[2017-12-13] MEDS: AMLODIPINE 10 MG TAB PO SCH (08:52)
--- NOTE | 2017-12-13 15:17 | EKG ---
Test Date: 2017-12-13 Test Time: 08:26:29 Temporary Staff Accountant: TARAH MEASUREMENT RESULTS: Intervals: Rate: 106 TN: 124 QRSD: 74 QT: 320 QTc: 425 [place]: P: 69 TN: 124 QRS: -58 T: 75 INTERPRETIVE STATEMENTS: Sinus tachycardia Left anterior fascicular block Possible Inferior infarct, age undetermined Cannot rule out Anterior infarct, age undetermined Abnormal ECG Compared to ECG 12/08/2017 14:39:38 Left anterior fascicular block now present Myocardial infarct finding now present Sinus rhythm no longer present Electronically Signed On 12-13-17 15:17:12 CDT by Edison Ortega
--- NOTE | 2017-12-13 17:11 | P.PN ---
Date of Service: 12/13/17 S: PATIENT DEPRESSED DUE TO SITUATION. REPORTED UPSET DUE TO NOT BEING ABLE TO GO TO THE FIFTH FLOOR REHABILITATION SITE. O: VSS, HGB 9.4 STABLE. THIS PATIENT HAS WORKED WITH THERAPY TWICE TODAY, 250 ' EACH TIME WITH ROLLING WALKER. BANDAGE CLEAN AND DRY. NV EXAM INTACT. SHANNON'S SIGN NEGATIVE. SOCIAL SERVICE INDICATES PATIENT CANNOT GO TO U THERE IS NO INSURANCE. PHYSICAL THERAPY HAS INDICATED 6 STEPS INTO AND OUT OF HER HOUSE HAVE NO RAILS, AND THE PATIENT WOULD REQUIRE ASSISTANCE TO ENTER OR LEAVE HER HOME. THE PATIENT INDICATES HER SISTER IS ON OXYGEN 05/09 AND CANNOT BE OF ASSISTANCE. SHE LOST HER BROTHER JUST A WEEK OR SO AGO. SOCIAL SERVICE SAYS MAYBE THERE IS A FRIEND OF THE SISTER LIVING 2 OR 3 HOUSES AWAY THAT COULD CHECK ON THIS PATIENT. A: POD#4, PATIENT MAKING GOOD PROGRESS WITH PHYSICAL THERAPY. NEEDS MORE. P: CONTINUE TO MOBILIZE TOLERATED.
--- NOTE | 2017-12-13 17:34 | PN ---
Date of Progress Note: 12/13/2017 History: The patient is seen and examined. Chart reviewed and case discussed with RN. The patient states her pain is controlled. She was able to ambulate the hallway with assistance with physical th erapy. Review of Systems: Negative except as above. Medications: List reviewed. Physical Examination: Vital Signs: Temperature 97.6, heart rate 91, blood pressure 121/75, respirations 18, O2 98% on room air. General: Awake, alert, oriented x3. Not in any acute distress. Elderly female, frail. CV: S1, S2 present. Peripheral pulses present. Respiratory: Moving air well bilaterally. No wheezing or stridor. Gastrointestinal: Abdomen is soft, nontender, nondistended. Positive bowel sounds. Extremities: No clubbing, cyanosis, or edema. Musculoskeletal: Left hip incision site clean, dry, and intact. Neurologic: Nonfocal. Laboratory Data: Sodium 133, potassium 4.4, chloride 100, CO2 27, BUN 19, creatinine 1, glucose 100, calcium 9.3, H and H 9.4 and 27.2. Assessment And Plan: A 62-year-old female with: 1.Status post mechanical fall. Continue PT and OT. 2.Left femur fracture at initial encounter, closed, status post open reduction and internal fixation , postop day #3, per Dr. Chapman, the patient is doing well with physical therapy, more ambulatory tod ay. Pain is well controlled. We will continue Xarelto for deep venous thrombosis prophylaxis. 3.Essential hypertension, stable. We will continue to monitor blood pressure and doing well on home medications. 4.Acute blood loss anemia secondary to recent hip fracture. H and H are improving. We will continu e to monitor. Transfuse as needed. Hemodynamically is stable. 5.Gastrointestinal and deep vein thrombosis prophylaxis with Xarelto. 6.Discharge planning, the patient is uninsured. sales property manager and Social Work working on placement. May end up going home with home health through [facility] versus possible long-term care. We will discuss further with Social Work. ANEL Voice ID: [id number] Report ID: [id number]
[2017-12-13] MEDS: TEMAZEPAM 15 MG CAP PO SCH (20:12)
[2017-12-14 05:36] LABS: Absolute Lymphocytes (CBC) 1.2 K/uL (0.7-4.9); Absolute Monocytes 0.9 K/uL (0.1-1.3); Absolute Neutrophil 3.3 K/uL (1.8-8.0); Basophils % 0.6 % (0-1.3); Eosinophils % 5.4 % (0-4.4); Hematocrit 26.4 % (36.0-45.0); Lymphocytes % 20.5 % (15.3-44.8); MCH 32.1 pg (27.0-35.0); MCV 91.8 fL (80-100); Monocytes % 15.6 % (3.3-12.3); RBC Red Blood Cell Count 2.88 M/uL (3.86-4.86)
[2017-12-14 06:01] LABS: Albumin 3.1 g/dL (3.4-5.0); Bilirubin Total 0.4 mg/dL (0.2-1.0); Potassium 4.2 mmol/L (3.5-5.1); Protein, Total 6.5 g/dL (6.4-8.2)
[2017-12-14 08:37] LABS: Blood Morphology Comment NOT SEEN (NOT SEEN); Platelet Estimate INCR; Urine White Blood Cell Casts OK
[2017-12-14] MEDS: RIVAROXABAN 10 MG TABLET PO SCH (09:48)
[2017-12-14] MEDS: DULOXETINE 30 MG CAP PO SCH ×2 (09:48→21:17)
[2017-12-14] MEDS: BUPROPRION HCL S.R. 150MG TAB PO SCH (09:48)
[2017-12-14] MEDS: LISINOPRIL 10 MG TAB PO SCH (09:48)
[2017-12-14] MEDS: AMLODIPINE 10 MG TAB PO SCH (09:48)
[2017-12-14] MEDS: HYDROCODONE/APAP 7.5/325 MG TAB PO PRN (16:49)
[2017-12-14] MEDS: clonazePAM 1 MG TAB PO PRN (16:49)
--- NOTE | 2017-12-14 18:35 | PN ---
Date of Progress Note: 12/14/2017 History: The patient is seen and examined. Chart reviewed and case discussed with RN and Case Manag ement and social worker assistant. The patient is doing well with physical therapy. Pain is under control. T he patient's situation with help at home is being arranged. Review of Systems: Negative except as above. Medications: List reviewed. Physical Examination: Vital Signs: Temperature 96.9, heart rate 133, blood pressure 132/75, respirations 17, O2 98% on judy m air. General: Awake, alert, oriented x3, not in any acute distress. Elderly female. CV: S1, S2. No murmurs. Peripheral pulses present. Respiratory: Moving air well bilaterally. No wheezing. Gastrointestinal: Abdomen is soft, nontender, nondistended. Positive bowel sounds. Extremities: No clubbing, cyanosis, or edema. Musculoskeletal: Left hip incision site clean, dry, intact. Extremities: No clubbing, cyanosis, edema. Neurologic: Nonfocal. Laboratory Data: Sodium 134, potassium 4.2, chloride 102, CO2 27, BUN 22, creatinine 1, glucose 99, calcium 9. WBC 5.7, H and H 9.2 and 26.4, platelets 422, neutrophils 57%. Assessment And Plan: A 62-year-old female with: 1.Status post mechanical fall, doing well with PT. 2.Left femur fracture. Initial encounter, closed. Status post open reduction and internal fixation , postoperative day #4. Appreciate Dr. Chapman's input. 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 Continue Xarelto for deep venous thrombosis prophylaxis. Pain is controlled. 3.Hyponatremia, improving. We will continue to monitor sodium level. 4.Acute blood loss anemia secondary to a recent hip fracture. H and H are stable. The patient did have some tachycardia today. We will continue to monitor. Transfuse as needed. 5.Thrombocytosis, likely reactive. We will monitor. 6.Essential hypertension, stable, on home medications. 7.Gastrointestinal and deep vein thrombosis prophylaxis with Xarelto. 8.Discharge planning. The patient is likely going to go home with possible home PT if [facility] has approved. Regarding her DVT prophylaxis, the patient cannot afford Xarelto. We will attempt to see if she can have a 30 day supply provided for through [facility] card. If not, the patient will need to be anticoagulated using Coumadin with bridging with Lovenox, to keep INR between 2 and 3. /YOLANDE Voice ID: [id number] Report ID: [id number]
[2017-12-14] MEDS: TEMAZEPAM 15 MG CAP PO SCH (21:16)
[2017-12-15] MEDS: BUPROPRION HCL S.R. 150MG TAB PO SCH (09:48)
[2017-12-15] MEDS: LISINOPRIL 10 MG TAB PO SCH (09:49)
[2017-12-15] MEDS: DULOXETINE 30 MG CAP PO SCH (09:50)
[2017-12-15] MEDS: AMLODIPINE 10 MG TAB PO SCH (09:50)
[2017-12-15] MEDS: RIVAROXABAN 10 MG TABLET PO SCH (09:51)
--- NOTE | 2017-12-16 05:49 | DS ---
Date of Discharge: 12/15/2017 Consultants: Dr. Chapman with General Surgery. Procedures: On 12/09/2017, the patient had a percutaneous pin fixation of left hip fracture with Kno wles pins x3. Admitting Diagnoses: 1.Status post mechanical fall. 2.Left femur fracture. 3.Essential hypertension. Discharge Diagnoses: 1.Status post mechanical fall. 2.Left subcapital femoral neck fracture. Initial encounter closed fracture, status post open reduct ion internal fixation, on Xarelto for deep venous thrombosis prophylaxis. 3.Hyponatremia, improved. 4.Acute blood loss anemia, secondary to recent hip fracture. 5.Thrombocytosis, reactive. 6.Essential hypertension, stable. Hospital Course: The patient is a 62-year-old female who was admitted to the hospital after siding mechanic al fall resulting in left hip fracture. The patient came in with excruciating pain, on imaging was f ound to have a subcapital left femoral neck fracture. Dr. Chapman with Orthopedics was consulted and the patient was taken for ORIF which she tolerated well. There was no dislocation of the fracture. The patient was started on Xarelto postoperatively. The patient did well with physical therapy and w as able to ambulate using a walker and did not have any postop atelectasis. She was continued on inc entive spirometry. She did develop some acute blood loss anemia, however her hemoglobin was stable e nough where she did not require transfusion. She did have some tachycardia, but that resolved. She also has some reactive thrombocytosis. Regarding her electrolytes, she developed some hyponatremia w hich improved. Otherwise, her chronic medical conditions including hypertension remained stable. Th e patient unfortunately was attempted to be transferred to rehab or SNF facility, however did not hav e benefits as she is unfunded. The patient continued physical therapy while at the hospital. She di d well enough where she was able to ambulate at the same level she would require at home. She does h ave family members living close by, and therefore was stable enough to be discharged. She was provid ed with a 30-day free coupon for Xarelto as she will need 30 more days of deep venous thrombosis prop hylaxis. She already received the first 5 days in the hospital. The patient was then cleared for lucinda mayen from Dr. Chapman's standpoint. She was discharged home in stable condition. Activity: Fall precautions. Diet: Heart healthy. Followup: Follow up with primary care physician in 2-3 days. Follow up with Dr. Chapman, Orthopedic, in 3-5 days. Return to ER for worsening condition. Medications: As per medication reconciliation list. Physical Examination: General: Awake, alert, oriented x3. Elderly female CV: S1, S2. No murmurs. Respiratory: Moving air well bilaterally. Abdomen: Abdomen is soft, nontender, nondistended. Positive bowel sounds. Extremities: No clubbing, cyanosis, edema. Musculoskeletal: Left hip incision site clean, dry, intact. Neurologic: Nonfocal. Total time spent discharging the patient was 36 minutes. /YOLANDE Voice ID: [id number] Report ID: [id number]
== END 2017-12-15 11:00 | disposition home or self-care (01) | DRG 481 ==
LOC: ER 14:32 → ERHOLD 17:48 → 2ND 20:03
PROVIDERS: ADMIT Family Medicine; ATTEND Family Medicine
PROC: 0QS704Z Reposition Left Upper Femur with Internal Fixation Device, Open Approach (ICD-10-PCS; principal; 2017-12-09 11:00)
DX: S72.012A Unspecified intracapsular fracture of left femur, initial encounter for closed fracture (principal); E87.1 Hypo-osmolality and hyponatremia; D62 Acute posthemorrhagic anemia; D47.3 Essential (hemorrhagic) thrombocythemia; I10 Essential (primary) hypertension; W06.XXXA Fall from bed, initial encounter; Y93.89 Activity, other specified; Y92.013 Bedroom of single-family (private) house as the place of occurrence of the external cause; F32.9 Major depressive disorder, single episode, unspecified; G47.00 Insomnia, unspecified
CPT/HCPCS: 36415; 72170; 73530; 80048; 80053; 81003; 83735; 84100; 84443; 85014; 85018; 85025; 85610; 85730; 93005; 96374; 96375; 97163; 99285; J0690; J2175; J2250; J2270; J2405; J2704; J3010; J7030

== ENCOUNTER 2020-02-29 15:15 | Emergency (ER) | payer OTHER ==
--- NOTE | 2020-02-29 18:12 | ER ---
Nurse's Notes [facility] Name: Adelaida Scott Age: 64 yrs Sex: Female : 1955 Arrival Date: 02/29/2020 Time: 15:17 Bed Waiting Private MD: Diagnosis: Presentation: 02/28 15:30 Chief complaint: Patient states: SOB, rash with itching, dizzy last night for 4 days. ll1 On dupixent since January, son states these are direct side effects of this medication. Coronavirus screen: Client denies travel out of the [place] in the last 14 days. At this time, the client does not indicate any symptoms associated with coronavirus-19. Ebola Screen: Patient denies travel to an Ebola-affected area in the 21 days before illness onset. Initial Sepsis Screen: Does the patient meet any 2 criteria? HR > 90 bpm. No. Patient's initial sepsis screen is negative. Does the patient have a suspected source of infection? No. Patient's initial sepsis screen is negative. Risk Assessment: Do you want to hurt yourself or someone else? Patient reports no desire to harm self or others. Onset of symptoms was February 26, 2020. 15:30 Method Of Arrival: Ambulatory ll1 15:30 Acuity: CLEMENTINA 3 ll1 Triage Assessment: 15:35 General: Appears in no apparent distress. Behavior is calm, cooperative, appropriate ll1 for age. Pain: Denies pain. Neuro: No deficits noted. Cardiovascular: No deficits noted. Respiratory: Reports shortness of breath Airway is patent Trachea midline Respiratory effort is even, unlabored, Respiratory pattern is regular, symmetrical, Breath sounds are clear bilaterally. Onset: The symptoms/episode began/occurred 4 days off/on, the patient has mild shortness of breath. GI: No deficits noted. Derm: Reports rash with itching. Historical: - Allergies: 15:35 No Known Allergies; ll1 - PMHx: 15:35 Depression; Hypertension; insomnia; ll1 - PSHx: 15:35 hip sx; retina repair; ll1 - Immunization history:: Flu vaccine is not up to date. - Social history:: Smoking status: Patient denies any tobacco usage or history of. Vital Signs: 15:30 BP 179 / 100; Pulse 96; Resp 17; Temp 98.4; Pulse Ox 97% on R/A; Weight 63.5 kg; Height ll1 5 ft. (152.40 cm); Pain 0/10; 16:44 Resp 19; Pulse Ox 96% on R/A; ll1 15:30 Body Mass Index 27.34 (63.50 kg, 152.40 cm) ll1 ED Course: 15:17 Patient arrived in ED. ds1 15:30 Arm band placed on. ll1 15:34 Triage completed. ll1 Administered Medications: No medications were administered Outcome: 18:11 Patient left the ED. ll1 Signatures: Justina Randall ds1 Ricardo Sandoval, RN RN ll1
[2020-02-29 18:18] VITALS: BP 179/100; TEMP 98.4
[2020-02-29 18:19] VITALS: O2SAT 96
== END 2020-02-29 18:11 | disposition left against medical advice (07) ==
LOC: ER 15:15
DX: Z53.21 Procedure and treatment not carried out due to patient leaving prior to being seen by health care provider (principal)
CPT/HCPCS: 99281

== ENCOUNTER 2020-03-03 18:57 | Inpatient (IN) | payer OTHER ==
[2020-03-03 19:36] LABS: Absolute Lymphocytes (CBC) 3.3 K/uL (0.7-4.9); Basophils % 0.8 % (0-1.3); MPV 8.4 fL (7.6-11.3); Protime INR 0.91; RBC Red Blood Cell Count 3.19 M/uL (3.86-4.86)
[2020-03-03 20:14] LABS: Albumin 3.1 g/dL (3.4-5.0); Bilirubin Direct 0.1 mg/dL (0-0.2); Bilirubin Total 0.3 mg/dL (0.2-1.0); Magnesium 2.1 mg/dL (1.8-2.4); Potassium 3.8 mmol/L (3.5-5.1); Protein, Total 6.8 g/dL (6.4-8.2); Troponin (Emerg Dept Use Only) 0.23 ng/mL (0.0-0.045)
--- NOTE | 2020-03-03 20:19 | RAD REPORT ---
EXAM DESCRIPTION: RAD - Chest Single View - 03/03/2020 8:07 pm CLINICAL HISTORY: Cough;SOB COMPARISON: Two-view chest March 02 TECHNIQUE: AP portable chest image was obtained 03/03/2020 8:07 pm . FINDINGS: Lung volumes are low. This accentuates a baseline interstitial pattern. There is additiona l interstitial opacification superimposed on the chronic pattern. Evgeny B-lines are seen in the righ t lung field. There is opacification in the right base partially obscuring the right hemidiaphragm. L eft hemidiaphragm is poorly visualized. The densely calcified breast implant capsules overlie the trent g bases which limits detail. Heart and vasculature are normal. No measurable pleural effusion and no pneumothorax. No acute bone finding. Prominent degenerative scoliosis noted. No acute aortic findings suspected. IMPRESSION: Diffusely prominent interstitial pattern with mild vascular engorgement and increased bi lateral lung base opacification. CHF/volume overload is favored over infectious etiology.
--- NOTE | 2020-03-03 20:21 | RAD REPORT ---
EXAM DESCRIPTION: US - Extrem Venous W Compress Wang - 03/03/2020 8:12 pm CLINICAL HISTORY: SWELLING, both legs COMPARISON: None. TECHNIQUE: Real-time sonographic evaluation of the bilateral lower extremity common femoral, superfi cial femoral, popliteal and posterior tibial veins was performed. FINDINGS: Normal compressibility, flow augmentation, phasic flow and spontaneous flow are identified in the left and right lower extremity common femoral, superficial femoral, popliteal and posterior t ibial veins. No intraluminal filling defects seen. Bilateral inguinal lymph nodes are generally ang gn in imaging characteristics. IMPRESSION: No DVT in either lower extremity.
[2020-03-03] MEDS ORDERED: CEFEPIME 2 GM VIAL ONE (20:53)
[2020-03-03] MEDS ORDERED: FUROSEMIDE 20 MG/ 2ML VIAL ONE (20:54)
[2020-03-03] MEDS ORDERED: NA CHLORIDE 0.9% 250 ML ONE (20:54)
[2020-03-03] MEDS ORDERED: AZITHROMYCIN 500 MG INJ IVPB ONE (20:54)
[2020-03-03] MEDS ORDERED: NA CHLORIDE 0.9% 100 ML ONE (20:54)
[2020-03-03 20:55] LABS: SARS-COV-2 RT PCR NEGATIVE (NEGATIVE)
--- NOTE | 2020-03-03 21:10 | RAD REPORT ---
EXAM DESCRIPTION: CT - Chest For Pe Angio - 03/03/2020 8:58 pm CLINICAL HISTORY: SOB COMPARISON: Chest Single View dated 03/03/2020 TECHNIQUE: Dynamically enhanced 3 mm thick images of the chest were obtained during administration o f approximately 150mL Isovue 370 IV contrast. Coronal and oblique MIP reconstruction images were gene rated and reviewed. Exam utilizes a protocol to evaluate the pulmonary arterial tree. All CT scans are performed using dose optimization technique as appropriate and may include automated exposure control or mA/KV adjustment according to patient size. FINDINGS: No pulmonary emboli are identified. The aorta as imaged shows no acute or suspicious finding. No pericardial thickening or effusion. Large bilateral pleural effusions are present. There is partial atelectasis of the each lower lobe an d the right middle lobe. Interstitial thickening is present throughout the lung felix. There are rosangela und-glass opacities present in the mid and upper lung felix. No pneumothorax or pleural based mass. No mediastinal or hilar suspicious masses. No chest wall masses or abnormal axillary lymphadenopathy. Large bilateral breast implants are in place with densely calcified capsules. IMPRESSION: No pulmonary emboli identified. Large bilateral pleural effusions. Interstitial thickening and ground-glass opacities are most likely interstitial and alveolar edema. Failure would be the primary consideration. Ground-glass opacities can be seen with COVID-19 pneumonia though this is unlikely without additional clinical and laboratory findings.
--- NOTE | 2020-03-03 21:21 | ER ---
Nurse's Notes [facility] Name: Adelaida Scott Age: 64 yrs Sex: Female : 1955 Arrival Date: 03/03/2020 Time: 18:58 Bed 5 Private MD: Diagnosis: Unspecified combined systolic (congestive) and diastolic (congestive) heart failure;Pneumonia due to other specified infectious organisms;Respiratory failure, unspecified with hypoxia Presentation: 03/03 18:58 Chief complaint: EMS states: Increased SOB, O2 sat 91% RA upon scene arrival and 88% RA aa5 with increased SOB upon ambulation to EMS stretcher. Respirations labored at this time. O2 via NC at 6 L per EMS DIRECTOR OF GROUP COUNSELING PROGRAM. 18:58 Coronavirus screen: cough unrelated to allergies, shortness of breath. Ebola Screen: aa5 Patient negative for fever greater than or equal to 101.5 degrees Fahrenheit, and additional compatible Ebola Virus Disease symptoms. 18:58 Acuity: CLEMENTINA 2 aa5 18:58 Method Of Arrival: EMS: [facility] aa5 20:02 Initial Sepsis Screen: Does the patient meet any 2 criteria? No. Patient's initial zb sepsis screen is negative. Does the patient have a suspected source of infection? Yes: Productive cough/pneumonia. Risk Assessment: Do you want to hurt yourself or someone else? Patient reports no desire to harm self or others. Onset of symptoms was March 02, 2020. Triage Assessment: 20:06 Respiratory: Onset: The symptoms/episode began/occurred yesterday, the patient has zb severe shortness of breath. Historical: - Allergies: 03/04 07:08 No Known Allergies; sv - PMHx: 03/03 19:02 Depression; Hypertension; insomnia; Anxiety; aa5 - PSHx: 19:02 hip sx; retina repair; aa5 - Immunization history:: Adult Immunizations up to date. - Social history:: Smoking status: Patient denies any tobacco usage or history of. Screenin:00 Abuse screen: Denies threats or abuse. Denies injuries from another. Nutritional zb screening: No deficits noted. Tuberculosis screening: No symptoms or risk factors identified. Fall Risk None identified. Assessment: 19:00 General: Appears distressed, uncomfortable, Behavior is appropriate for age, anxious, zb Reports fatigue for Denies fever. Pain: Denies pain. Neuro: Level of Consciousness is awake, alert, obeys commands, Oriented to person, place, time, situation. Cardiovascular: Denies chest pain, nausea, vomiting, Capillary refill is > 3 seconds is sluggish in bilateral fingers Patient's skin is warm and dry. Edema is 3+ to left ankle, left foot, left toes, right ankle, right foot and right toes pitting to left midcalf, left ankle, left foot, left toes, right midcalf, right ankle, right foot and right toes Rhythm is regular. Respiratory: Reports shortness of breath at rest since yesterday labored breathing since yesterday Airway is patent Respiratory effort is labored, with nasal flaring, pursed lip, using tripod position, Respiratory pattern is tachypnea Breath sounds with crackles in left posterior lower lobe and right posterior lower lobe Breath sounds with rales in left posterior upper lobe and right posterior upper lobe Breath sounds with wheezes bilaterally. in left posterior upper lobe, right posterior upper lobe, left posterior lower lobe, right posterior middle lobe and right posterior lower lobe. GI: Abdomen is round non-distended, noted to have ascites, Bowel sounds present X 4 quads. Abd is soft and non tender X 4 quads. Parent/caregiver reports the patient having diarrhea. : No signs and/or symptoms were reported regarding the genitourinary system. EENT: No signs and/or symptoms were reported regarding the EENT system. Derm: Skin is thin, with poor turgor Skin is dry, Skin is mottled, slightly reddish, cyanic in the hands and arms Skin temperature is warm. Musculoskeletal: Circulation, motion, and sensation intact. Capillary refill < 3 seconds, in bilateral fingers. Range of motion: intact in all extremities. 20:00 Reassessment: Patient appears in no apparent distress at this time. Patient and/or zb family updated on plan of care and expected duration. Pain level reassessed. pt remains tachypneic, remains on 2 L of NC RR 23. blood pressure has decreased . 20:27 Reassessment: spoke to patient's son states she taking 1 tab 250mg azithromycin. zb cefuroxine 500mg 1 tab twice a day. notified ECP. 21:19 Reassessment: Hospitalist at bedside. discussing POC. zb 22:14 Reassessment: Patient and/or family updated on plan of care and expected duration. Pain zb level reassessed. RR increased to 32. reports SOB. notified Hospitalist verbal order for Cohen cath. 22:20 Reassessment: increase heart rated 130-150's notified Hospitalist. EKG preformed. zb 22:40 Reassessment: RT at bedside for BiPap, Antony SENIOR IT ENGINEER at bedside evaluating patient at this sg time. 23:21 Reassessment: Patient appears in no apparent distress at this time. patient currently zb on BIPAP states she feels a lot better. color has returned to her face more. appears less tachypneic. 03/04 00:06 Reassessment: Patient appears in no apparent distress at this time. Patient and/or zb family updated on plan of care and expected duration. Pain level reassessed. pt transferred to room #6. patient appears better. remains slightly tachypneic but is less labored. Vital Signs: 03/03 18:58 Resp 30 S; Pulse Ox 94% on 6 lpm NC; aa5 19:15 BP 200 / 135; Pulse 94; Resp 32; Temp 97.8; Pulse Ox 96% 2 lpm ; Weight 66.68 kg; zb Height 5 ft. 3 in. (160.02 cm); Pain 0/10; 20:00 BP 170 / 105; Pulse 93; Resp 23; Pulse Ox 99% on 2 lpm NC; zb 21:00 BP 184 / 121; Pulse 93; Resp 26; Pulse Ox 98% 2 lpm ; zb 22:00 BP 184 / 123; Pulse 115; Resp 32; Pulse Ox 97% 4 lpm ; zb 22:20 Pulse 167; zb 22:43 BP 176 / 104; Pulse 154; Resp 30; Pulse Ox 96% on 4 lpm NC; zb 23:00 BP 168 / 128; Pulse 143; Resp 26; Pulse Ox 97% on BiPAP; zb 03/04 00:00 BP 172 / 107; Pulse 141; Resp 25; Pulse Ox 100% on BiPAP; zb 03/03 19:15 Body Mass Index 26.04 (66.68 kg, 160.02 cm) z ED Course: 03/03 18:58 Patient arrived in ED. aa5 18:58 Arm band placed on Patient placed in an exam room, on a stretcher. aa5 19:00 Christopher Szymanski PA is PHCP. cp 19:00 Moisés Roland MD is Attending Physician. cp 19:00 Attending Physician role handed off by Moisés Roland MD [facility] 19:00 Christopher Rock MD is Attending Physician. [facility] 19:00 lastex operator on. Pulse ox on. NIBP on. Door closed. Noise minimized. Warm blanket zb given. 19:01 Triage completed. aa5 19:16 Stacy Aguilar, RN is Primary Nurse. zb 19:54 Inserted saline lock: 20 gauge in right antecubital area, using aseptic technique. dh4 Blood collected. 20:03 Patient has correct armband on for positive identification. Bed in low position. Call zb light in reach. Side rails up X 1. 20:07 XRAY Chest (1 view) In Process Unspecified. EDMS 20:13 US Extremity Venous W Compression Wang In Process Unspecified. EDMS 20:26 Notified Nurse Practitioner and/or Physician Vessel Crew Member of a critical lab result(s), ca1 Lactate 4.0 Notified primary nurse of. 20:59 CT Chest For PE Angio In Process Unspecified. EDMS 21:19 Keenan Harmon MD is Hospitalizing Provider. cp 21:19 Marc Clemente DO is Hospitalizing Provider. cp 22:11 COVID-19 Sent. zb 22:11 Influenza Screen (a \T\ B) Sent. zb 22:25 EKG done, by ED staff, reviewed by Antony MARTINO-Domonique. zb 23:15 Cohen cath inserted, using sterile technique, 16 Fr., by ED staff, balloon inflated, to zb gravity drainage. 03/04 00:48 No provider procedures requiring assistance completed. Inserted saline lock: 20 gauge rv in right forearm, using aseptic technique. IV is patent, with fluids infusing freely, Patient admitted, IV remains in place. Administered Medications: 03/03 20:30 Drug: Cefepime 2 grams Route: IVPB; Rate: 200 ml/hr; Infused Over: 30 mins; Site: right zb forearm; 21:00 Follow up: Response: No adverse reaction; IV Status: Completed infusion; IV Intake: zb 100ml 21:18 Not Given (Physician Discretion): Lasix 20 mg IVP once cp 21:25 Drug: Lasix 40 mg Route: IVP; Site: right forearm; la1 23:50 Follow up: Response: No adverse reaction zb 21:31 CANCELLED (Other Intervention Used): Lovenox 1 mg/kg Sub-Q once la1 22:10 Drug: Zithromax 500 mg Route: IVPB; Infused Over: 1 hrs; Site: right forearm; zb 03/04 00:51 Follow up: IV Status: Completed infusion; IV Intake: 250ml rv 03/03 22:30 Drug: Nitro-Bid Ointment 2 % 0.5 inches Route: Transdermal; Site: anterior chest wall; sg 23:50 Follow up: Response: No adverse reaction zb 22:43 Drug: Lasix 20 mg Route: IVP; Site: right forearm; la1 23:50 Follow up: Response: No adverse reaction zb 22:44 Drug: Digoxin 0.5 mg Route: IVP; Site: right forearm; la1 23:00 Follow up: Response: No adverse reaction; Cardiac rhythm changed zb 23:35 Drug: Lovenox 1 mg/kg Route: Sub-Q; Site: left lower abdomen; zb 23:49 Follow up: Response: No adverse reaction zb 03/04 00:04 Drug: Aspirin Chewable Tablet 324 mg Route: PO; zb 00:51 Follow up: Response: No adverse reaction rv 00:31 Drug: Lopressor 25 mg Route: PO; rv 00:50 Follow up: Response: No adverse reaction; Cardiac rhythm changed rv 00:31 Drug: Lopressor 5 mg Route: IVP; Site: right forearm; rv 00:48 Follow up: Response: No adverse reaction; Cardiac rhythm changed rv Intake: 03/03 21:00 IV: 100ml; Total: 100ml. zb 03/04 00:51 IV: 250ml; Total: 350ml. rv Outcome: 03/03 21:20 Decision to Hospitalize by Provider. cp 03/04 00:48 Admitted to ER Hold. Please see [facility] for further documentation. rv Condition: stable Instructed on the need for admit. 08:03 Patient left the ED. hb Signatures: Dispatcher [employer] EDJuliann Smith RN RN sv Gay, Steven, RN RN sg Anderson, Corey, MD MD cha Calderon Laly, RN RN aa5 Antony Leonard, SENIOR IT ENGINEER-C SENIOR IT ENGINEER-Cla1 Christopher Szymanski, Myesha Salcido cp, RN RN hb Oumar Rojo, RN RN Marisa Hendrix, RN RN ca1 [facility] Stacy Aguilar, RN RN zb
--- NOTE | 2020-03-03 21:21 | EDPHYS ---
Physician Documentation [facility] Name: Adelaida Scott Age: 64 yrs Sex: Female : 1955 Arrival Date: 03/03/2020 Time: 18:58 Bed 5 Private MD: ED Physician Christopher Rock HPI: 03/03 19:15 This 64 yrs old Female presents to ER via EMS with complaints of Shortness Of cp Breath. 19:15 The patient has shortness of breath at rest. cp 19:15 Onset: The symptoms/episode began/occurred yesterday. cp 19:15 Duration: The symptoms are continuous, and are steadily getting worse. Associated signs cp and symptoms: Pertinent negatives: chest pain, fever. 19:15 Patient reports having chest xray done yesterday and being diagnosed with pneumonia. cp Historical: - Allergies: 03/04 07:08 No Known Allergies; sv - PMHx: 03/03 19:02 Depression; Hypertension; insomnia; Anxiety; aa5 - PSHx: 19:02 hip sx; retina repair; aa5 - Immunization history:: Adult Immunizations up to date. - Social history:: Smoking status: Patient denies any tobacco usage or history of. ROS: 19:20 Constitutional: Negative for fever. cp 19:20 Eyes: Negative for injury, pain, redness, and discharge. cp 19:20 ENT: Negative for ear pain, sore throat, difficulty swallowing, difficulty handling secretions. 19:20 Cardiovascular: Positive for edema, Negative for chest pain. 19:20 Respiratory: Positive for shortness of breath, at rest. 19:20 Abdomen/GI: Negative for abdominal pain, nausea, vomiting, and diarrhea. 19:20 Skin: Negative for cellulitis, rash. 19:20 Neuro: Negative for altered mental status, headache, syncope. 19:20 All other systems are negative. Exam: 19:25 Constitutional: The patient appears alert, awake, non-diaphoretic, non-toxic, well cp developed, well nourished, in obvious distress, moderately distressed. 19:25 Head/Face: Normocephalic, atraumatic. cp 19:25 Eyes: Periorbital structures: appear normal, Conjunctiva: normal, no exudate, no injection, Sclera: no appreciated abnormality, Lids and lashes: appear normal, bilaterally. 19:25 ENT: External ear(s): are unremarkable, Nose: is normal, Mouth: Lips: moist, Oral mucosa: moist, Posterior pharynx: Airway: no evidence of obstruction, patent, swelling, is not appreciated, erythema, is not appreciated, exudate, is not appreciated. 19:25 Neck: ROM/movement: is normal, is supple, no meningismus, no nuchal rigidity. 19:25 Chest/axilla: Inspection: normal, Palpation: is normal, no crepitus, no tenderness. 19:25 Cardiovascular: Rate: tachycardic, Rhythm: regular, Edema: ankle edema, that is moderate, JVD: is not appreciated. 19:25 Respiratory: moderate respiratory distress is noted, Respirations: labored breathing, that is moderate, shallow respirations, that is moderate, tachypnea, that is mild, Breath sounds: bronchial sounds, that are moderate, are heard diffusely. 19:25 Abdomen/GI: Inspection: abdomen appears normal, Bowel sounds: active, all quadrants, Palpation: abdomen is soft and non-tender, in all quadrants, rebound tenderness, is not appreciated, voluntary guarding, is not appreciated, involuntary guarding, is not appreciated. 19:25 Back: CVA tenderness, is absent. 19:25 Skin: no rash present. 19:25 Neuro: Orientation: to person, place \T\ time. Mentation: is normal, Motor: moves all fours, strength is normal, Sensation: is normal. 19:53 ECG was reviewed by the Attending Physician. cp Vital Signs: 18:58 Resp 30 S; Pulse Ox 94% on 6 lpm NC; aa5 19:15 BP 200 / 135; Pulse 94; Resp 32; Temp 97.8; Pulse Ox 96% 2 lpm ; Weight 66.68 kg; zb Height 5 ft. 3 in. (160.02 cm); Pain 0/10; 20:00 BP 170 / 105; Pulse 93; Resp 23; Pulse Ox 99% on 2 lpm NC; zb 21:00 BP 184 / 121; Pulse 93; Resp 26; Pulse Ox 98% 2 lpm ; zb 22:00 BP 184 / 123; Pulse 115; Resp 32; Pulse Ox 97% 4 lpm ; zb 22:20 Pulse 167; zb 22:43 BP 176 / 104; Pulse 154; Resp 30; Pulse Ox 96% on 4 lpm NC; zb 23:00 BP 168 / 128; Pulse 143; Resp 26; Pulse Ox 97% on BiPAP; zb 03/04 00:00 BP 172 / 107; Pulse 141; Resp 25; Pulse Ox 100% on BiPAP; zb 03/03 19:15 Body Mass Index 26.04 (66.68 kg, 160.02 cm) zb MDM: 03/03 19:01 [facility] Data reviewed: vital signs, nurses notes, lab test result(s), EKG, radiologic studies, cp CT scan, plain films. 21:25 Antibiotic administration: Cefepime and Zithromax. Test interpretation: by ED physician cp or midlevel provider: ECG, plain radiologic studies. Response to treatment: the patient's symptoms have mildly improved after treatment. 21:25 Physician consultation: Antony QUINN was contacted at 21:20, regarding admission, cp to the telemetry unit. patient's condition, and will see patient in ED, shortly. 03/03 19:11 Order name: Influenza Screen (a \T\ B) 03/03 19:11 Order name: COVID-19 cp 03/03 19:11 Order name: Basic Metabolic Panel 03/03 19:11 Order name: CBC with Diff 03/03 19:11 Order name: LFT's cp 03/03 19:11 Order name: Magnesium; Complete Time: 20:22 03/03 19:11 Order name: NT PRO-BNP; Complete Time: 20:22 03/03 19:11 Order name: PT-INR; Complete Time: 20:22 03/03 19:11 Order name: Troponin (emerg Dept Use Only); Complete Time: 20:22 cp 03/03 19:11 Order name: Blood Culture Adult (2) cp 03/03 19:11 Order name: Lactate; Complete Time: 20:22 cp 03/03 19:11 Order name: Procalcitonin; Complete Time: 21:12 cp 03/03 19:11 Order name: Basic Metabolic Panel; Complete Time: 20:22 EDMS 03/03 20:24 Interpretation: Normal except: CL 112; GLUC 137; BUN 19; CRE 1.49; GFR 35. cp 03/03 19:11 Order name: CBC with Automated Diff; Complete Time: 20:22 EDMS 03/03 19:11 Order name: Liver (Hepatic) Function; Complete Time: 20:22 EDMS 03/03 20:55 Order name: COVID-19/FLU A+B; Complete Time: 21:12 EDMS 03/03 22:18 Order name: Basic Metabolic Panel EDMS 03/03 22:19 Order name: Basic Metabolic Panel EDMS 03/03 22:19 Order name: Basic Metabolic Panel EDMS 03/03 22:19 Order name: CBC with Automated Diff EDMS 03/03 22:19 Order name: CBC with Automated Diff EDMS 03/03 22:19 Order name: CBC with Automated Diff EDMS 03/03 22:19 Order name: Ferritin EDMS 03/03 22:19 Order name: Ferritin EDMS 03/03 22:19 Order name: Iron EDMS 03/03 22:19 Order name: Iron EDMS 03/03 22:19 Order name: Lipid Profile EDMS 03/03 22:19 Order name: Lipid Profile EDMS 03/03 19:11 Order name: XRAY Chest (1 view); Complete Time: 20:22 cp 03/03 19:11 Order name: US Extremity Venous W Compression Wang; Complete Time: 20:24 cp 03/03 20:27 Order name: CT Chest For PE Angio; Complete Time: 21:12 cp 03/03 22:18 Order name: Echo with Doppler EDMS 03/03 22:19 Order name: Magnesium EDMS 03/03 22:19 Order name: Magnesium EDMS 03/03 22:19 Order name: Magnesium EDMS 03/03 22:19 Order name: Procalcitonin EDMS 03/03 22:19 Order name: Procalcitonin; Complete Time: 00:23 EDMS 03/03 22:19 Order name: T4 Free EDMS 03/03 22:19 Order name: T4 Free EDMS 03/03 22:19 Order name: Thyroid Stimulating Hormone EDMS 03/03 22:19 Order name: Thyroid Stimulating Hormone EDMS 03/03 22:19 Order name: Transferrin Sat/Iron Binding EDMS 03/03 22:19 Order name: Transferrin Sat/Iron Binding EDMS 03/03 22:19 Order name: Troponin I EDMS 03/03 22:19 Order name: Troponin I; Complete Time: 03:39 EDMS 03/03 22:19 Order name: Troponin I EDMS 03/03 22:35 Order name: BIPAP la1 03/04 00:01 Order name: Lactate Sepsis 2 HR Follow-up; Complete Time: 00:23 EDMS 03/03 19:11 Order name: EKG; Complete Time: 19:12 cp 03/03 19:11 Order name: Cardiac monitoring; Complete Time: 19:55 cp 03/03 19:11 Order name: EKG - Nurse/Tech; Complete Time: 19:55 cp 03/03 19:11 Order name: IV Saline Lock; Complete Time: 19:55 cp 03/03 19:11 Order name: Labs collected and sent; Complete Time: 19:55 cp 03/03 19:11 Order name: O2 Per Protocol; Complete Time: 19:55 cp 03/03 19:11 Order name: O2 Sat Monitoring; Complete Time: 19:54 cp 03/03 22:18 Order name: Heart Healthy EDMS EC:53 Rate is 88 beats/min. Rhythm is regular. WI interval is normal. QRS interval is normal. cp QT interval is normal. T waves are Inverted in lead aVL. Interpreted by me. Reviewed by me. Administered Medications: 20:30 Drug: Cefepime 2 grams Route: IVPB; Rate: 200 ml/hr; Infused Over: 30 mins; Site: right zb forearm; 21:00 Follow up: Response: No adverse reaction; IV Status: Completed infusion; IV Intake: zb 100ml 21:18 Not Given (Physician Discretion): Lasix 20 mg IVP once cp 21:25 Drug: Lasix 40 mg Route: IVP; Site: right forearm; la1 23:50 Follow up: Response: No adverse reaction zb 21:31 CANCELLED (Other Intervention Used): Lovenox 1 mg/kg Sub-Q once la1 22:10 Drug: Zithromax 500 mg Route: IVPB; Infused Over: 1 hrs; Site: right forearm; zb 03/04 00:51 Follow up: IV Status: Completed infusion; IV Intake: 250ml rv 03/03 22:30 Drug: Nitro-Bid Ointment 2 % 0.5 inches Route: Transdermal; Site: anterior chest wall; sg 23:50 Follow up: Response: No adverse reaction zb 22:43 Drug: Lasix 20 mg Route: IVP; Site: right forearm; la1 23:50 Follow up: Response: No adverse reaction zb 22:44 Drug: Digoxin 0.5 mg Route: IVP; Site: right forearm; la1 23:00 Follow up: Response: No adverse reaction; Cardiac rhythm changed zb 23:35 Drug: Lovenox 1 mg/kg Route: Sub-Q; Site: left lower abdomen; zb 23:49 Follow up: Response: No adverse reaction zb 03/04 00:04 Drug: Aspirin Chewable Tablet 324 mg Route: PO; zb 00:51 Follow up: Response: No adverse reaction rv 00:31 Drug: Lopressor 25 mg Route: PO; rv 00:50 Follow up: Response: No adverse reaction; Cardiac rhythm changed rv 00:31 Drug: Lopressor 5 mg Route: IVP; Site: right forearm; rv 00:48 Follow up: Response: No adverse reaction; Cardiac rhythm changed rv Disposition: 11:07 Co-signature as Attending Physician, Christopher Rock MD I agree with the assessment and claus plan of care. Disposition: 03/03/20 21:20 Hospitalization ordered by Marc Clemente for Inpatient Admission. Preliminary diagnosis are Unspecified combined systolic (congestive) and diastolic (congestive) heart failure, Pneumonia due to other specified infectious organisms, Respiratory failure, unspecified with hypoxia. - Bed requested for Telemetry/MedSurg (Inpatient). - Status is Inpatient Admission. hb - Condition is Fair. - Problem is new. - Symptoms have improved. Signatures: Dispatcher [employer] EDCO Juliann Johnston RN RN sv Webb, Martha, RN RN mw Gay, Steven, RN RN sg Anderson, Corey, MD MD cha Calderon, Audri RN RN aa5 Antony Leonard, ADMINISTRATIVE COORDINATOR-C ADMINISTRATIVE COORDINATOR-Cla1 Christopher Szymanski PA PA cp Myesha Ma RN RN hb Vicente, Ronaldo, RN RN rv Brown, Zipporah, RN RN zb Corrections: (The following items were deleted from the chart) 03/03 20:01 19:11 Influenza Screen (A ordered. EDMS EDMS 20:02 19:11 CORONAVIRUS ordered. EDCO EDMS 21:21 21:20 Hospitalization Ordered by Marc Clemente DO for Inpatient Admission. Preliminary cp diagnosis is Unspecified combined systolic (congestive) and diastolic (congestive) heart failure; Hypoxemia; Pneumonia due to other specified infectious organisms. Bed requested for Telemetry/MedSurg (Inpatient). Status is Inpatient Admission. Condition is Fair. Problem is new. Symptoms have improved. cp 21:31 21:22 Lovenox 1 mg/kg Sub-Q once ordered. cp la1 21:37 21:21 03/03/2020 21:20 Hospitalization Ordered by Marc Clemente DO for Inpatient sg Admission. Preliminary diagnosis is Unspecified combined systolic (congestive) and diastolic (congestive) heart failure; Pneumonia due to other specified infectious organisms; Respiratory failure, unspecified with hypoxia. Bed requested for Telemetry/MedSurg (Inpatient). Status is Inpatient Admission. Condition is Fair. Problem is new. Symptoms have improved. cp 03/04 05:40 03/03 21:37 03/03/2020 21:20 Hospitalization Ordered by Marc Clemente DO for Inpatient mw Admission. Preliminary diagnosis is Unspecified combined systolic (congestive) and diastolic (congestive) heart failure; Pneumonia due to other specified infectious organisms; Respiratory failure, unspecified with hypoxia. Bed requested for [facility] ER HOLD. Status is Inpatient Admission. Condition is Fair. Problem is new. Symptoms have improved. sg 03/04 08:03 05:40 03/03/2020 21:20 Hospitalization Ordered by Marc Clemente DO for Inpatient hb Admission. Preliminary diagnosis is Unspecified combined systolic (congestive) and diastolic (congestive) heart failure; Pneumonia due to other specified infectious organisms; Respiratory failure, unspecified with hypoxia. Bed requested for Telemetry/MedSurg (Inpatient). Status is Inpatient Admission. Condition is Fair. Problem is new. Symptoms have improved. mw
--- NOTE | 2020-03-03 21:52 | P.HP ---
Certification for Inpatient Patient admitted to: Inpatient With expected LOS: >2 Midnights Patient will require the following post-hospital care: None Practitioner: I am a practitioner with admitting privileges, knowledge of patient current condition, hospital course, and medical plan of care. Services: Services provided to patient in accordance with Admission requirements found in Title 42 Section 412.3 of the Code of Federal Regulations Patient History Date of Service: 03/03/20 Primary Care Provider: Dr. Powell Reason for admission: New onset CHF History of Present Illness: 64-year-old female with history of hypertension presents to the emergency department for shortness of breath. Patient reports that she has been increasing short of breath over the course of the last few days, patient also reports swelling of the lower extremities going on for about 6 weeks now. Patient recently placed on oral antibiotics Zithromax and cefuroxime. Patient was evaluated in the emergency department found to be volume overloaded, labs significant for creatinine 1.49 GFR 35, BUN 19 troponin at 0.23 BNP [id number] lactic acid 4.0 pro calcitonin 0.08 hemoglobin 9.3, hematocrit 28.0, MCV 87.6 white blood cell count 14.3 CT PE protocol demonstrates large bilateral pleural effusions with interstitial thickening and ground-glass opacities likely interstitial and alveolar edema failure is the primary consideration. Patient is COVID negative. ED provider wishes to admit patient for further evaluation and management. When I saw the patient in the ER she was awake, alert, oriented x3. Patient and mildly hypoxic on room air but tolerating nasal cannula well, mild tachypneic noted. Crackles at bilateral lung bases. Pitting edema bilateral lower extremities. Patient does not appear septic at this time, pro calcitonin, lactate mildly elevated, possible superimposed pneumonia. Will continue IV antibiotics. Allergies No Known Allergies Allergy (Verified 12/08/17 20:33) Home Medications: Amlodipine [Norvasc*] 10 mg PO DAILY 12/08/17 Buproprion S.r. [Wellbutrin Sr*] 150 mg PO DAILY 12/08/17 Cyclobenzaprine [Flexeril*] 10 mg PO TID PRN 12/08/17 Duloxetine HCl [Cymbalta] 30 mg PO BID 12/08/17 Temazepam [Restoril*] 15 mg PO BEDTIME 12/08/17 Tramadol HCl [Ultram] 50 mg PO Q6HP PRN 12/08/17 clonazePAM [Klonopin*] 1 mg PO BIDP PRN 12/08/17 lisinopriL [Lisinopril] 10 mg PO DAILY 12/08/17 Rivaroxaban [Xarelto*] 10 mg PO DAILY #30 tablet 12/15/17 - Past Medical/Surgical History Diabetic: No -: Hypertension -: insomnia -: depression -: Left knee surgery Psychosocial/ Personal History: Patient is retired, lives with her son - Family History Father -: Heart disease - Social History Alcohol use: Yes CD- Drugs: Yes Caffeine use: No Place of Residence: Home Review of Systems 10-point ROS is otherwise unremarkable Respiratory: Shortness of Breath, SOB with Excertion Physical Examination - Physical Exam General: Alert, In no apparent distress, Oriented x3 HEENT: Atraumatic, Normocephalic, PERRLA Neck: Supple Respiratory: Normal air movement, Crackles/rales (Bilaterally), Other (Mild tachypnea) Cardiovascular: Edema (2+ pitting edema bilateral lower extremities), Irregular heart rate/rhythm (Sinus tachycardia rate around 105) Capillary refill: <2 Seconds Gastrointestinal: Normal bowel sounds Musculoskeletal: No contractures, No erythema, No tenderness Integumentary: No tenderness/swelling, No erythema, No warmth Neurological: Normal speech, Normal strength at 5/5 x4 extr, Normal tone Lymphatics: No axilla or inguinal lymphadenopathy - Studies Laboratory Data (last 24 hrs) 03/03/20 19:19: PT 10.8, INR 0.91 03/03/20 19:19: WBC 14.3 H, Hgb 9.3 L, Hct 28.0 L, Plt Count 493 H 03/03/20 19:19: Sodium 144, Potassium 3.8, BUN 19 H, Creatinine 1.49 H, Glucose 137 H, Magnesium 2.1, Total Bilirubin 0.3, AST 51 H, ALT 52, Alkaline Phosphatase 132 H Assessment and Plan - Plan Assessment Suspected new onset CHF with elevated troponin secondary to demand ischemia complicated with possible superimposed pneumonia Hypertension Insomnia Plan Suspected new onset CHF with elevated troponin secondary to demand ischemia complicated with possible superimposed pneumonia: No history of CHF, no echocardiogram available for review. Cardiology consult in place, trend troponins, fluid restriction, daily weights, IV Lasix for diuresis. Echocardiog juan ordered, Aspirin, statin, Jonathan, beta-stefan therapy. DT prophylaxis with Lovenox. Anticipate clinical improvement in the next 24-48 hr. Hypertension: Continue with IV diuresis, carvedilol, lisinopril. Insomnia: Continue Seroquel. Discharge Plan: Home Plan to discharge in: 72 Hours - Advance Directives Does patient have a Living Will: No Does patient have a Durable POA for Healthcare: No - Code Status/Comfort Care Code Status Assessed: Yes (full code) Critical Care: No Time Spent Managing Pts Care (In Minutes): 55
[2020-03-03] MEDS ORDERED: ONDANSETRON 4 MG/2 ML VIAL IV PRN (22:16)
[2020-03-03] MEDS ORDERED: HYDRALAZINE HCL 20 MG/ML VIAL IV PRN (22:16)
[2020-03-03] MEDS ORDERED: ACETAMINOPHEN 500 MG TAB PO PRN (22:16)
[2020-03-03] MEDS ORDERED: ASPIRIN 81 MG CHEWABLE TABLET ONE (22:36)
[2020-03-03] MEDS ORDERED: NITROGLYCERIN 1 GM PKT TD ONE (22:49)
[2020-03-03] MEDS ORDERED: DIGOXIN 0.25 MG/ML AMP ONE (22:53)
[2020-03-03] MEDS ORDERED: ENOXAPARIN 80 MG/0.8 ML SQ ONE (23:47)
[2020-03-04] MEDS ORDERED: METOPROLOL TAR 25 MG TAB ONE (00:42)
[2020-03-04] MEDS ORDERED: METOPROLOL TARTRATE 5 MG/5 ML INJ IV ONE (00:42)
--- NOTE | 2020-03-04 00:48 | P.PN ---
Date of Service: 03/04/20 After admission process complete patient went into AFib RVR, no history of AFib, rate was around 160-170. Patient was given 0.5 mg of digoxin IV, initially patient responded well to this converted to sinus rhythm with a rate of around 105-110. Patient then converted to atrial flutter with a rate of around 135- 150. Patient with acute heart failure, for this reason cardiology was contacted prior to giving beta stefan. Cardiology recommended low-dose metoprolol 25 mg p.o. b.i.d. in addition to p.r.n. IV for rate control. Patient volume status significantly improved since admission, blood pressure improved, greater than 1 L urine output achieved, patient breathing much easier. Will continue to monitor closely throughout the evening. Continue with full-dose Lovenox as new onset AFib/A flutter.
[2020-03-04 01:20] VITALS: BMI 28.7
[2020-03-04 05:14] LABS: Absolute Lymphocytes (CBC) 2.2 K/uL (0.7-4.9); Basophils % 0.6 % (0-1.3); Hematocrit 29.5 % (36.0-45.0); Lymphocytes % 21.6 % (15.3-44.8); MPV 8.3 fL (7.6-11.3); RBC Red Blood Cell Count 3.42 M/uL (3.86-4.86)
[2020-03-04 05:40] LABS: Ferritin 65.5 ng/mL (8-388); Magnesium 2.2 mg/dL (1.8-2.4); Potassium 3.6 mmol/L (3.5-5.1); Thyroid Stimulating Hormone 1.97 uIU/mL (0.360-3.740); Troponin I 0.45 ng/mL (0.0-0.045)
[2020-03-04] MEDS: METOPROLOL TAR 25 MG TAB PO SCH ×2 (06:00→16:48)
[2020-03-04] MEDS ORDERED: carvediloL 12.5 MG TAB PO SCH (06:00)
[2020-03-04] MEDS ORDERED: AZITHROMYCIN IV 500 MG in NA CHLORIDE 0.9% 250 ML IVPB SCH (09:00)
[2020-03-04] MEDS: lisinopriL 5 MG TAB PO SCH (09:00)
[2020-03-04] MEDS ORDERED: INFLUENZA VACCINE (for 3y+) 0.5 ML DOSE IMVAC ONE ×2 (09:00→19:00)
[2020-03-04] MEDS ORDERED: ENOXAPARIN 40 MG/0.4 ML SQ SCH (09:00)
[2020-03-04] MEDS ORDERED: CEFTRIAXONE/SWI 1gm 1 GM/10 ML SYR IV SCH (09:00)
[2020-03-04] MEDS: ENOXAPARIN 80 MG/0.8 ML SQ SCH ×2 (09:00→20:20)
[2020-03-04] MEDS ORDERED: POTASSIUM CL SA 10 MEQ TAB PO ONE ×2 (09:00→23:26)
[2020-03-04] MEDS: ASPIRIN EC 81 MG TAB PO SCH (09:00)
[2020-03-04] MEDS ORDERED: PNEUMOCOCCAL VACCINE 0.5 ML IMVAC ONE ×2 (09:00→19:00)
[2020-03-04] MEDS ORDERED: ENOXAPARIN 100 MG/ML SYR SQ SCH (09:00)
[2020-03-04] MEDS ORDERED: CEFTRIAXONE 1 GM/NS 50 ML 1 GM/50 ML BAG IV SCH (09:00)
[2020-03-04] MEDS: FUROSEMIDE 40 MG/4 ML VIAL IV SCH ×2 (09:45→15:59)
--- NOTE | 2020-03-04 13:21 | ECHO ---
HEIGHT: 5 ft 3 in WEIGHT: 147 lb 0 oz DATE OF STUDY: 03/05/[address]: Galen Mathew MD 2-DIMENSIONAL: YES M.MODE: YES DOPPLER: NO COLOR FLOW: NO TDS: PORTABLE: DEFINITY: BUBBLE STUDY: DIAGNOSIS: SHORTNESS OF BREATH CARDIAC HISTORY: CATHERIZATION: SURGERY: PROSTHETIC VALVE: PACEMAKER: MEASUREMENTS (cm) DIASTOLIC (NORMALS) SYSTOLIC (NORMALS) IVSd 1.0 (0.6-1.2) LA Diam 3.2 (1.9-4.0) LVEF 55% LVIDd 4.1 (3.5-5.7) LVIDs 2.9 (2.0-3.5) %FS 28% LVPWd 1.0 (0.6-1.2) Ao Diam 3.1 (2.0-3.7) 2 DIMENSIONAL ASSESSMENT: RIGHT ATRIUM: NORMAL LEFT ATRIUM: NORMAL RIGHT VENTRICLE: NORMAL LEFT VENTRICLE: NORMAL TRICUSPID VALVE: NORMAL MITRAL VALVE: NORMAL PULMONIC VALVE: NORMAL AORTIC VALVE: NORMAL PERICARDIAL EFFUSION: NONE AORTIC ROOT: NORMAL LEFT VENTRICULAR WALL MOTION: NORMAL EJECTION FRACTION DOPPLER/COLOR FLOW: NORMAL COMMENTS: DIASTOLIC DYSFUNCTION. NO EJECTION FRACTION. NO EFFUSION. TECHNOLOGIST: LON HOWARD
--- NOTE | 2020-03-04 13:36 | P.PN ---
Subjective Date of Service: 03/04/20 Primary Care Provider: Dr. Powell Chief Complaint: New onset CHF Subjective: Improving (Patient improved. Currently on 2 L per nasal cannula. Patient back to normal sinus rhythm.) Physical Examination - Vital Signs Temperature: 98.6 F Blood Pressure: 159/86 Pulse: 69 Respirations: 16 Pulse Ox (%): 97 - Physical Exam General: Alert, In no apparent distress, Oriented x3, Cooperative HEENT: Atraumatic Neck: Supple Respiratory: Crackles/rales (Minimal crackles to the bases) Cardiovascular: Normal pulses, Regular rate/rhythm Gastrointestinal: Normal bowel sounds, No tenderness, No masses, No rebound, No guarding Musculoskeletal: No erythema, No tenderness, No warmth Neurological: Normal speech, Normal strength at 5/5 x4 extr, Normal tone, Normal affect - Studies Laboratory Data (last 24 hrs) 03/03/20 19:19: PT 10.8, INR 0.91 03/03/20 19:19: WBC 14.3 H, Hgb 9.3 L, Hct 28.0 L, Plt Count 493 H 03/03/20 19:19: Sodium 144, Potassium 3.8, BUN 19 H, Creatinine 1.49 H, Glucose 137 H, Magnesium 2.1, Total Bilirubin 0.3, AST 51 H, ALT 52, Alkaline Phosphatase 132 H Medications List Reviewed: Yes Assessment & Plan Discharge Plan: Home Plan to discharge in: 24 Hours Physician Review Additional Text: Assessment Edema, dyspnea secondary to acute on chronic diastolic CHF with elevated troponin likely ischemic demand complicated with possible pneumonia/pleural effusion Atrial fibrillation now normal sinus rhythm Hypertension Insomnia Acute on chronic renal disease stage III Anemia chronic disease suspect iron deficiency Plan Edema, dyspnea secondary to acute on chronic diastolic CHF with elevated troponin likely ischemic demand complicated with possible pneumonia/pleural effusion: Spoke with cardiology. Patient with diastolic dysfunction on echo. Continue diuresis. Continue IV Lasix. Continue strict input and output. Will monitor this closely. Possible underlying pneumonia as well. Will adjust antibiotic therapy. Recheck chest x-ray. Dc Cohen catheter once ambulating. Will monitor and adjust appropriately. Anticipate improvement over the next 24 hr. Atrial fibrillation now normal sinus rhythm: Continue with beta-stefan therapy. Continue Lovenox. This can be transition to either Xarelto or Eliquis at discharge. Await further recommendations from cardiology. Hypertension: Continue medication will monitor and adjust appropriate. Insomnia: Continue Seroquel Acute on chronic renal disease stage III: Will monitor this closely. Would benefit with nephrology evaluation if this continues to worsen. Anemia chronic disease suspect iron deficiency: Will check iron and B12 studies. Will monitor this closely. Time Spent Managing Pts Care (In Minutes): 55
--- NOTE | 2020-03-04 15:20 | RAD REPORT ---
EXAM DESCRIPTION: RAD - Chest Pa And Lat (2 Views) - 03/04/2020 3:10 pm CLINICAL HISTORY: follow up CHF Chest pain. COMPARISON: Chest Single View dated 03/03/2020; Chest Pa And Lat (2 Views) dated 03/02/2020 FINDINGS: Small left and moderate right pleural effusions are seen. Lung aeration has improved since 03/03/2020 moderately. Heart is mildly enlarged in size. Prominent dextroscoliosis of the thoracic s pine. IMPRESSION: Moderate improvement in lung aeration is seen since comparative study.
[2020-03-04] MEDS: AMOX/K CLAV 500 MG TAB PO SCH ×2 (15:59→20:20)
[2020-03-04] MEDS: clonazePAM 1 MG TAB PO PRN (16:02)
[2020-03-04] MEDS: ENSURE HIGH PROTEIN 237 ML CAN PO SCH (19:50)
[2020-03-04] MEDS: DULOXETINE 30 MG CAP PO SCH (19:50)
[2020-03-04] MEDS: GABAPENTIN 300 MG CAP PO SCH (19:50)
[2020-03-04] MEDS: ATORVASTATIN 40 MG TAB PO SCH (19:50)
[2020-03-04] MEDS: QUETIAPINE 100MG TAB PO SCH (19:50)
[2020-03-04] MEDS ORDERED: NA CHLORIDE 0.9% 250 ML ONE (20:53)
[2020-03-04] MEDS ORDERED: QUETIAPINE 100MG TAB PO SCH (21:00)
[2020-03-04] MEDS ORDERED: NA CHLORIDE 0.9% 250 ML IV ONE (21:00)
[2020-03-04] MEDS ORDERED: HOME MED 1 EA UNK (Duloxetine Hcl [Cymbalta] 60 MG Capsule.Dr) PO SCH (21:00)
[2020-03-04] MEDS ORDERED: DIPHENHYDRAMINE 50 MG/ML VIAL IV ONE (21:20)
[2020-03-04] MEDS ORDERED: NA CHLORIDE 0.9% 250 ML IV PRN (21:30)
[2020-03-04] MEDS ORDERED: FAMOTIDINE 20 MG/2 ML VIAL IV ONE (22:00)
[2020-03-05] MEDS ORDERED: PANTOPRAZOLE 40MG TABLET PO ONE (01:19)
[2020-03-05] MEDS ORDERED: METOPROLOL TARTRATE 5 MG/5 ML INJ IV STA (02:46)
[2020-03-05] MEDS: METOPROLOL TAR 25 MG TAB PO SCH ×3 (05:44→21:32)
[2020-03-05 06:13] LABS: Absolute Lymphocytes (CBC) 1.8 K/uL (0.7-4.9); Basophils % 0.4 % (0-1.3); Hematocrit 35.7 % (36.0-45.0); Lymphocytes % 14.5 % (15.3-44.8); MPV 8.7 fL (7.6-11.3); RBC Red Blood Cell Count 4.12 M/uL (3.86-4.86)
[2020-03-05 06:35] LABS: Magnesium 2.1 mg/dL (1.8-2.4)
[2020-03-05] MEDS: ENOXAPARIN 80 MG/0.8 ML SQ SCH ×2 (09:51→21:32)
[2020-03-05] MEDS: DULOXETINE 30 MG CAP PO SCH ×2 (09:53→21:34)
[2020-03-05] MEDS: ASPIRIN EC 81 MG TAB PO SCH (09:53)
[2020-03-05] MEDS: lisinopriL 5 MG TAB PO SCH (09:53)
[2020-03-05] MEDS: GABAPENTIN 300 MG CAP PO SCH ×2 (09:53→21:33)
[2020-03-05] MEDS: AMOX/K CLAV 500 MG TAB PO SCH ×2 (09:53→21:33)
[2020-03-05] MEDS: FUROSEMIDE 20 MG/ 2ML VIAL IV SCH ×2 (09:54→18:35)
[2020-03-05] MEDS: ENSURE HIGH PROTEIN 237 ML CAN PO SCH ×2 (09:54→21:34)
[2020-03-05 10:04] LABS: Blood Morphology Comment NOT SEEN (NOT SEEN); Platelet Estimate ADEQ
[2020-03-05] MEDS: FERROUS SULFATE 325 MG TAB PO SCH (11:59)
--- NOTE | 2020-03-05 17:34 | P.PN ---
Subjective Date of Service: 03/05/20 Primary Care Provider: Dr. Powell Chief Complaint: New onset CHF Subjective: Improving Physical Examination - Vital Signs Temperature: 98.2 F Blood Pressure: 100/57 Pulse: 89 Respirations: 18 Pulse Ox (%): 96 - Physical Exam General: Alert, In no apparent distress, Oriented x3, Cooperative HEENT: Atraumatic Neck: Supple Respiratory: Clear to auscultation bilaterally, Normal air movement Cardiovascular: Normal pulses, Regular rate/rhythm Gastrointestinal: Normal bowel sounds, Soft and benign, Non-distended, No masses, No rebound, No guarding Neurological: Normal speech, Normal strength at 5/5 x4 extr, Normal tone, Normal affect - Studies Medications List Reviewed: Yes Assessment & Plan Discharge Plan: Home Plan to discharge in: 24 Hours Physician Review Additional Text: Assessment Edema, dyspnea secondary to acute on chronic diastolic CHF with elevated troponin likely ischemic demand complicated with possible pneumonia/pleural effusion Atrial fibrillation now normal sinus rhythm Hypertension Insomnia Acute on chronic renal disease stage III Anemia chronic disease suspect iron deficiency Plan Edema, dyspnea secondary to acute on chronic diastolic CHF with elevated troponin likely ischemic demand complicated with possible pneumonia/pleural effusion: Spoke with cardiology. Patient improved. Will order cardiac stress test tomorrow to further evaluate. Echocardiogram shows diastolic dysfunction. Will decrease IV diuretic therapy. Continue antibiotics. Recheck chest x-ray tomorrow. Likely home discharge tomorrow if improved. Atrial fibrillation now normal sinus rhythm: Continue with beta-stefan therapy. Continue Lovenox. This can be transition to either Xarelto or Eliquis at discharge. Await further recommendations from cardiology. Hypertension: Continue medication will monitor and adjust appropriate. Insomnia: Continue Seroquel Acute on chronic renal disease stage III: Will monitor this closely. Would benefit with nephrology evaluation if this continues to worsen. Anemia chronic disease suspect iron deficiency: Will check iron and B12 studies. Will monitor this closely. Time Spent Managing Pts Care (In Minutes): 55
[2020-03-05] MEDS ORDERED: LOPERAMIDE HCL 2 MG CAPSULE PO PRN (18:03)
[2020-03-05] MEDS ORDERED: FAMOTIDINE 20 MG/2 ML VIAL IV ONE (21:22)
[2020-03-05] MEDS: ATORVASTATIN 40 MG TAB PO SCH (21:34)
[2020-03-05] MEDS: QUETIAPINE 100MG TAB PO SCH (21:34)
[2020-03-06] MEDS ORDERED: NA CHLORIDE 0.9% 250 ML IV ONE ×2 (00:24→01:00)
[2020-03-06] MEDS ORDERED: NA CHLORIDE 0.9% 500 ML ONE (00:41)
[2020-03-06] MEDS: METOPROLOL TAR 25 MG TAB PO SCH ×2 (05:25→18:22)
--- NOTE | 2020-03-06 08:06 | P.PN ---
Subjective Date of Service: 03/06/20 Primary Care Provider: Dr. Powell Chief Complaint: New onset CHF Subjective: Improving (Patient improving. Blood pressure medication adjusted. Currently on 2 L per nasal cannula.) Physical Examination - Vital Signs Temperature: 97.8 F Blood Pressure: 103/65 Pulse: 85 Respirations: 18 Pulse Ox (%): 96 - Physical Exam General: Alert, In no apparent distress, Oriented x3, Cooperative HEENT: Atraumatic Neck: Supple Respiratory: Clear to auscultation bilaterally, Normal air movement Cardiovascular: Normal pulses, Regular rate/rhythm Gastrointestinal: Normal bowel sounds, No tenderness, No masses, No rebound, No guarding Musculoskeletal: No erythema, No tenderness, No warmth Integumentary: No tenderness/swelling, No erythema, No warmth, No cyanosis Neurological: Normal speech, Normal strength at 5/5 x4 extr, Normal tone, Normal affect - Studies Medications List Reviewed: Yes Assessment & Plan Discharge Plan: Home Plan to discharge in: 24 Hours Physician Review Additional Text: Assessment Edema, dyspnea secondary to acute on chronic diastolic CHF with elevated troponin likely ischemic demand complicated with possible pneumonia/pleural effusion Atrial fibrillation now normal sinus rhythm Hypertension Insomnia Acute on chronic renal disease stage III Anemia chronic disease suspect iron deficiency Plan Edema, dyspnea secondary to acute on chronic diastolic CHF with elevated troponin likely ischemic demand complicated with possible pneumonia/pleural effusion: Echocardiogram shows EF 55% with diastolic dysfunction. Will change IV diuretic therapy to oral. Spoke with cardiology yesterday. Will plan for cardiac stress test today. Await results. Chest x-ray shows improvement. Wean off oxygen. Will check to see if the patient qualifies for home oxygen for discharge. If so will arrange. Blood pressure medication has been adjusted. Will reassess after cardiac stress test. Will discuss further with cardiology. If stress test negative anticipate home today with the likely need for home oxygen. Will need to teach on CHF, atrial fibrillation and hypertension. Will reassess later today. Atrial fibrillation now normal sinus rhythm: Beta-stefan therapy adjusted al laureen with lisinopril. Hold medication if blood pressure systolic less than 110. Will transition to Eliquis at discharge. Hypertension: Blood pressure medications adjusted. Hold if blood pressure systolic less than 110 Insomnia: Continue Seroquel Acute on chronic renal disease stage III: Renal function stable. Will discuss further with nephrology. Anemia chronic disease with iron deficiency: Patient with iron deficiency. Patient will need supplementation at discharge. Time Spent Managing Pts Care (In Minutes): 55
--- NOTE | 2020-03-06 08:13 | P.DS ---
Admission Date: 03/03/20 Discharge Date: 03/06/20 Primary Care Provider: Dr. Powell Disposition: ROUTINE DISCHARGE Discharge Condition: GOOD Reason for Admission: New onset CHF Consultations: Cardiology-Dr. Sims Nephrology-Dr. Nguyen Procedures: COVID: Negative CT scan: FINDINGS: No pulmonary emboli are identified. The aorta as imaged shows no acute or suspicious finding. No pericardial thickening or effusion. Large bilateral pleural effusions are present. There is partial atelectasis of the each lower lobe and the right middle lobe. Interstitial thickening is present throughout the lung felix. There are ground-glass opacities present in the mid and upper lung felix. No pneumothorax or pleural based mass. No mediastinal or hilar suspicious masses. No chest wall masses or abnormal axillary lymphadenopathy. Large bilateral breast implants are in place with densely calcified capsules. IMPRESSION: No pulmonary emboli identified. Large bilateral pleural effusions. Interstitial thickening and ground-glass opacities are most likely interstitial and alveolar edema. Failure would be the primary consideration. Venous doppler: FINDINGS: Normal compressibility, flow augmentation, phasic flow and spontaneous flow are identified in the left and right lower extremity common femoral, superficial femoral, popliteal and posterior tibial veins. No intraluminal filling defects seen. Bilateral inguinal lymph nodes are generally benign in imaging characteristics. IMPRESSION: No DVT in either lower extremity. ECHO: EF 55% 2 DIMENSIONAL ASSESSMENT: RIGHT ATRIUM: NORMAL LEFT ATRIUM: NORMAL RIGHT VENTRICLE: NORMAL LEFT VENTRICLE: NORMAL TRICUSPID VALVE: NORMAL MITRAL VALVE: NORMAL PULMONIC VALVE: NORMAL AORTIC VALVE: NORMAL PERICARDIAL EFFUSION: NONE AORTIC ROOT: NORMAL LEFT VENTRICULAR WALL MOTION: NORMAL EJECTION FRACTION DOPPLER/COLOR FLOW: NORMAL COMMENTS: DIASTOLIC DYSFUNCTION. NO EJECTION FRACTION. NO EFFUSION. Cardiac stress test: Follow up CXR: COMPARISON: Chest Single View dated 03/03/2020; Chest Pa And Lat (2 Views) dated 03/02/2020 FINDINGS: Small left and moderate right pleural effusions are seen. Lung aeration has improved since 03/03/2020 moderately. Heart is mildly enlarged in size. Prominent dextroscoliosis of the thoracic spine. IMPRESSION: Moderate improvement in lung aeration is seen since comparative study. Medical Problem List: Edema, dyspnea secondary to acute on chronic diastolic CHF with elevated troponin likely ischemic demand complicated with possible pneumonia/pleural effusion Atrial fibrillation now normal sinus rhythm Hypertension Insomnia Acute on chronic renal disease stage III Anemia chronic disease suspect iron deficiency Brief History of Present Illness: 64-year-old female presented to the emergency room with increasing shortness of breath. Patient was admitted for further evaluation and treatment. Hospital Course: Patient presented with Edema, dyspnea secondary to acute on chronic diastolic CHF with elevated troponin likely ischemic demand complicated with possible pneumonia/pleural effusion. The patient was admitted for further evaluation and treatment. Patient was negative for COVID. Patient responded well to diuretic therapy. Patient was seen and evaluated by Cardiology. Cardiology recommended echocardiogram and cardiac stress test. Echocardiogram shows EF 55% with diastolic dysfunction. Patient was transition to oral diuretic therapy. Patient was given information on CHF and fluid restriction. Stress test was to be performed but machine was not performing. This was discussed in detail with cardiology. Therefore cardiology recommends to do cardiac stress test as an outpatient. At discharge patient will continue with Lasix 20 mg 1 pill twice daily. Recommend to maintain 1500 cc per day fluid restriction and low-salt diet. Recommend to monitor weight daily. If weight increases by more than 5 lb she is to contact her PCP or cardiology for further recommendation. Recommend follow up with cardiology in 1-2 weeks to follow up this hospitalization. Recommend to recheck chest x-ray in 1-2 weeks to monitor resolution. Recommend to recheck lab-BMP in 1 week. Prior to discharge will check to see if the patient will require oxygen. If so oxygen will be arranged. There was some suspicion of pneumonia. As mentioned above patient was negative for COVID along with negative influenza. Patient was started on antibiotic therapy. At discharge patient will continue with Augmentin 500 mg 1 pill twice daily for 5 more days. Recommend to recheck chest x-ray in 1-2 weeks to monitor resolution. Patient had new onset of atrial fibrillation during the course of her stay. Patient responded well to beta stefan therapy. Patient was seen and evaluated by Cardiology. At discharge she will continue with metoprolol 12.5 mg 1 pill twice daily and Eliquis 5 mg 1 pill twice daily. Education on atrial fibrillation, Eliquis will be provided in detail. Recommend follow up with cardiology as directed. Patient with hypertension. Patient previously on carvedilol. This was switched to metoprolol. Patient currently on metoprolol 12.5 mg 1 pill twice daily. Patient will continue with these current medication metoprolol 12.5 mg 1 pill twice daily. Recommend to monitor blood pressure daily. Recommend to hold medication if blood pressure systolic less than 110. Recommend follow up with cardiology or PCP to further monitor and address. Patient with history of insomnia and depression. At discharge she will continue with her current medications of Cymbalta 60 mg 1 pill twice daily, Seroquel 100 mg at bedtime, and Klonopin 1 mg as prescribed. Patient had abnormal renal function. Suspect chronic renal disease stage III. This appears stable. Recommend no further use of nonsteroidal anti- inflammatories. Future medications will need to be renally dose. Recommend follow up with nephrology as an outpatient to further evaluate monitor. Recommend to recheck BMP in 1 week. Patient with anemia of chronic disease. Patient also found to be iron deficient. At discharge she will continue with iron supplementation daily. Recommend to recheck CBC if in 1 week to monitor her progress. Patient is to see GI as an outpatient for further evaluation and workup. Vital Signs/Physical Exam: Temp Pulse Resp BP Pulse Ox 97.8 F 85 18 103/65 96 03/06/20 08:06 03/06/20 08:06 03/06/20 08:06 03/06/20 08:06 03/06/20 08:06 General: Alert, In no apparent distress, Oriented x3, Cooperative HEENT: Atraumatic Neck: Supple Respiratory: Clear to auscultation bilaterally, Normal air movement Cardiovascular: Normal pulses, Regular rate/rhythm Gastrointestinal: Normal bowel sounds, Soft and benign, Non-distended, No guarding Integumentary: No tenderness/swelling, No erythema, No warmth, No cyanosis Neurological: Normal speech, Normal strength at 5/5 x4 extr, Normal tone, Normal affect Laboratory Data at Discharge: WBC 12.3 K/uL (4.3-10.9) H D 03/05/20 05:41 Hgb 11.8 g/dL (12.0-15.0) L 03/05/20 05:41 Hct 35.7 % (36.0-45.0) L D 03/05/20 05:41 Plt Count 506 K/uL (152-406) H 03/05/20 05:41 PT 10.8 SECONDS (9.5-12.5) 03/03/20 19:19 INR 0.91 03/03/20 19:19 Sodium 141 mmol/L (136-145) 03/05/20 05:41 Potassium 4.0 mmol/L (3.5-5.1) 03/05/20 05:41 BUN 18 mg/dL (7-18) 03/05/20 05:41 Creatinine 1.50 mg/dL (0.55-1.3) H 03/05/20 05:41 Glucose 105 mg/dL (74-106) 03/05/20 05:41 Magnesium 2.1 mg/dL (1.8-2.4) 03/05/20 05:41 Total Bilirubin 0.3 mg/dL (0.2-1.0) 03/03/20 19:19 AST 51 U/L (15-37) H 03/03/20 19:19 ALT 52 U/L (12-78) 03/03/20 19:19 Alkaline Phosphatase 132 U/L (45-117) H 03/03/20 19:19 Troponin I 0.45 ng/mL (0.0-0.045) H 03/04/20 04:58 Triglycerides 124 mg/dL (<150) 03/04/20 04:58 Cholesterol 135 mg/dL (<200) 03/04/20 04:58 HDL Cholesterol 62 mg/dL (40-60) H 03/04/20 04:58 Cholesterol/HDL Ratio 2.18 03/04/20 04:58 Home Medications: Duloxetine HCl [Cymbalta] 60 mg PO BID 03/04/20 Ferrous Sulfate [Iron] 325 mg PO DAILY 03/04/20 Gabapentin 300 mg PO BID 03/04/20 Quetiapine Fumarate [Seroquel] 100 mg PO BEDTIME 03/04/20 clonazePAM [Klonopin] 1 mg PO PRN PRN 03/04/20 Amox/Clavulanate [Augmentin 500-125 mg Tab*] 500 mg PO BID #14 tab 03/06/20 Apixaban [Eliquis] 5 mg PO BID #60 tablet 03/06/20 Furosemide [Lasix*] 20 mg PO BIDL #60 tab 03/06/20 Metoprolol Tartrate [Lopressor*] 12.5 mg PO BID 6AM 6PM #60 tab 03/06/20 New Medications: Amox/Clavulanate [Augmentin 500-125 mg Tab*] 500 mg PO BID #14 tab Apixaban [Eliquis] 5 mg PO BID #60 tablet Furosemide [Lasix*] 20 mg PO BIDL #60 tab Metoprolol Tartrate [Lopressor*] 12.5 mg PO BID 6AM 6PM #60 tab Patient Discharge Instructions: Follow up with PCP in 1 week. Patient presented with Edema, dyspnea secondary to acute on chronic diastolic CHF with elevated troponin likely ischemic demand complicated with possible pneumonia/pleural effusion. The patient was admitted for further evaluation and treatment. Patient was negative for COVID. Patient responded well to diuretic therapy. Patient was seen and evaluated by Cardiology. Cardiology recommended echocardiogram and cardiac stress test. Echocardiogram shows EF 55% with diastolic dysfunction. Patient was transition to oral diuretic therapy. Patient was given information on CHF and fluid restriction. Stress test was to be performed but machine was not performing. This was discussed in detail with cardiology. Therefore cardiology recommends to do cardiac stress test as an outpatient. At discharge patient will continue with Lasix 20 mg 1 pill twice daily. Recommend to maintain 1500 cc per day fluid restriction and low-salt diet. Recommend to monitor weight daily. If weight increases by more than 5 lb she is to contact her PCP or cardiology for further recommendation. Recommend follow up with cardiology in 1-2 weeks to follow up this hospitalization. Recommend to recheck chest x-ray in 1-2 weeks to monitor resolution. Recommend to recheck lab-BMP in 1 week. Prior to discharge will check to see if the patient will require oxygen. If so oxygen will be arranged. There was some suspicion of pneumonia. As mentioned above patient was negative for COVID along with negative influenza. Patient was started on antibiotic therapy. At discharge patient will continue with Augmentin 500 mg 1 pill twice daily for 5 more days. Recommend to recheck chest x-ray in 1-2 weeks to monitor resolution. Patient had new onset of atrial fibrillation during the course of her stay. Patient responded well to beta stefan therapy. Patient was seen and evaluated by Cardiology. At discharge she will continue with metoprolol 12.5 mg 1 pill twice daily and Eliquis 5 mg 1 pill twice daily. Education on atrial fibrillation, Eliquis will be provided in detail. Recommend follow up with cardiology as directed. Patient with hypertension. Patient previously on carvedilol. This was switched to metoprolol. Patient currently on metoprolol 12.5 mg 1 pill twice daily. Patient will continue with these current medication metoprolol 12.5 mg 1 pill twice daily. Recommend to monitor blood pressure daily. Recommend to hold medication if blood pressure systolic less than 110. Recommend follow up with cardiology or PCP to further monitor and address. Patient with history of insomnia and depression. At discharge she will continue with her current medications of Cymbalta 60 mg 1 pill twice daily, Seroquel 100 mg at bedtime, and Klonopin 1 mg as prescribed. Patient had abnormal renal function. Suspect chronic renal disease stage III. This appears stable. Recommend no further use of nonsteroidal anti-inflammatories. Future medications will need to be renally dose. Recommend follow up with nephrology as an outpatient to further evaluate monitor. Recommend to recheck BMP in 1 week. Patient with anemia of chronic disease. Patient also found to be iron deficient. At discharge she will continue with iron supplementation daily. Recommend to recheck CBC if in 1 week to monitor her progress. Patient is to see GI as an outpatient for further evaluation and workup. Diet: AHA (1500 cc per day fluid restriction) Activity: Ad suhas Followup: Sammy Powell MD [Primary Care Provider] - Time spent managing pt's care (in minutes): 55
[2020-03-06] MEDS: ENSURE HIGH PROTEIN 237 ML CAN PO SCH ×2 (09:00→20:26)
[2020-03-06] MEDS: lisinopriL 5 MG TAB PO SCH (09:00)
--- NOTE | 2020-03-06 09:43 | RAD REPORT ---
EXAM DESCRIPTION: RAD - Chest Pa And Lat (2 Views) - 03/06/2020 8:36 am CLINICAL HISTORY: for comparison Chest pain. COMPARISON: Chest Pa And Lat (2 Views) dated 03/04/2020; Chest Single View dated 03/03/2020; Chest Pa And Lat (2 Views) dated 03/02/2020 FINDINGS: Bilateral pleural effusions appear stable since prior study. Mild opacities in both lung b ases also appear unchanged. The heart is upper limit normal in size. Prominent dextroscoliosis of the thoracic spine is evident. IMPRESSION: Stable chest since 03/04/2020.
[2020-03-06] MEDS: ENOXAPARIN 80 MG/0.8 ML SQ SCH ×2 (09:46→20:29)
[2020-03-06] MEDS: FERROUS SULFATE 325 MG TAB PO SCH (09:47)
[2020-03-06] MEDS: GABAPENTIN 300 MG CAP PO SCH ×2 (09:47→20:25)
[2020-03-06] MEDS: ASPIRIN EC 81 MG TAB PO SCH (09:47)
[2020-03-06] MEDS: AMOX/K CLAV 500 MG TAB PO SCH ×2 (09:47→20:25)
[2020-03-06] MEDS: DULOXETINE 30 MG CAP PO SCH ×2 (09:47→20:26)
[2020-03-06] MEDS: FUROSEMIDE 20 MG TABLET PO SCH ×2 (09:47→18:22)
[2020-03-06] MEDS ORDERED: REGADENOSON 0.4 MG/5 ML SYR IV ONE (10:36)
[2020-03-06 19:45] VITALS: O2SAT 98
[2020-03-06] MEDS: QUETIAPINE 100MG TAB PO SCH (20:25)
[2020-03-06] MEDS: ATORVASTATIN 40 MG TAB PO SCH (20:25)
[2020-03-06] MEDS: clonazePAM 1 MG TAB PO PRN (22:21)
[2020-03-07] MEDS: METOPROLOL TAR 25 MG TAB PO SCH (05:38)
--- NOTE | 2020-03-07 08:30 | P.PN ---
Subjective Date of Service: 03/07/20 Primary Care Provider: Dr. Powell Chief Complaint: New onset CHF Subjective: No new changes, Tolerating diet, Ambulating (feels fine -still on 2 L 02 -reports of awaiting home 02 to be delivered) Physical Examination - Vital Signs Temperature: 97 F Blood Pressure: 104/59 Pulse: 83 Respirations: 19 Pulse Ox (%): 99 - Physical Exam General: Alert, In no apparent distress, Oriented x3 HEENT: Atraumatic, Normocephalic Neck: JVD not distended Respiratory: Clear to auscultation bilaterally, Diminished Gastrointestinal: Normal bowel sounds, Soft and benign, Non-distended Integumentary: Erythema Neurological: Normal speech, Normal strength at 5/5 x4 extr, Normal tone - Studies Medications List Reviewed: Yes Assessment & Plan Physician Review: Patient Assessed, Agree with Above Assessment and Plan Physician Review Additional Text: Assessment Edema, dyspnea secondary to acute on chronic diastolic CHF with elevated troponin likely ischemic demand complicated with possible pneumonia/pleural effusion Atrial fibrillation now normal sinus rhythm Hypertension Insomnia Acute on chronic renal disease stage III Anemia chronic disease suspect iron deficiency Plan -doing well -awaiting home 02 to be delivered before discharge as per nursing staff report - saturating well on 2 L , will wean down to 1 L and follow -c/w current mgt - if home 02 arranged , can dc anytime 03/06/20 Edema, dyspnea secondary to acute on chronic diastolic CHF with elevated troponin likely ischemic demand complicated with possible pneumonia/pleural effusion: Echocardiogram shows EF 55% with diastolic dysfunction. Will change IV diuretic therapy to oral. Spoke with cardiology yesterday. Will plan for ca rdiac stress test today. Await results. Chest x-ray shows improvement. Wean off oxygen. Will check to see if the patient qualifies for home oxygen for discharge. If so will arrange. Blood pressure medication has been adjusted. Will reassess after cardiac stress test. Will discuss further with cardiology. If stress test negative anticipate home today with the likely need for home oxygen. Will need to teach on CHF, atrial fibrillation and hypertension. Will reassess later today. Atrial fibrillation now normal sinus rhythm: Beta-stefan therapy adjusted along with lisinopril. Hold medication if blood pressure systolic less than 110. Will transition to Eliquis at discharge. Hypertension: Blood pressure medications adjusted. Hold if blood pressure systolic less than 110 Insomnia: Continue Seroquel Acute on chronic renal disease stage III: Renal function stable. Will discuss further with nephrology. Anemia chronic disease with iron deficiency: Patient with iron deficiency. Patient will need supplementation at discharge.
[2020-03-07] MEDS: ENOXAPARIN 80 MG/0.8 ML SQ SCH (09:00)
[2020-03-07] MEDS: ASPIRIN EC 81 MG TAB PO SCH (09:50)
[2020-03-07] MEDS: GABAPENTIN 300 MG CAP PO SCH (09:50)
[2020-03-07] MEDS: lisinopriL 5 MG TAB PO SCH (09:50)
[2020-03-07] MEDS: AMOX/K CLAV 500 MG TAB PO SCH (09:50)
[2020-03-07] MEDS: FUROSEMIDE 20 MG TABLET PO SCH (09:51)
[2020-03-07] MEDS: FERROUS SULFATE 325 MG TAB PO SCH (09:51)
[2020-03-07] MEDS: DULOXETINE 30 MG CAP PO SCH (09:51)
[2020-03-07] MEDS: ENSURE HIGH PROTEIN 237 ML CAN PO SCH (09:53)
[2020-03-07 10:07] LABS: Albumin 2.6 g/dL (3.4-5.0); Bilirubin Total 0.2 mg/dL (0.2-1.0); Potassium 4.5 mmol/L (3.5-5.1); Protein, Total 5.9 g/dL (6.4-8.2)
[2020-03-07 14:46] VITALS: BP 111/69; TEMP 98.8
--- NOTE | 2020-03-09 09:22 | CON ---
Date of Consultation: 03/04/2020 Reason For Consultation: Chest pain and shortness of breath. History Of Present Illness: Ms. Scott is a 64-year-old woman who has a history of depression, hyper tension, insomnia, anxiety, status post hip surgery and retina repair, came in with shortness of heather th, atypical chest pain sharp stabbing with a recent diagnosis of pneumonia. Denied PND, orthopnea, pedal edema, palpitations, or syncope. Has had chills but no fever. She came in very hypertensive w ith a blood pressure 200/135. She was afebrile with a temperature 97.8. No previous cardiac history . Past Medical History: As stated above. Allergies: NONE. Review of Systems: Negative. Social History: Negative. Family History: Noncontributory. Medications: At home were supposed to be Augmentin, Eliquis 5 mg b.i.d., iron, Lasix 20 mg b.i.d., g abapentin, metoprolol 12.5 mg 1 p.o. b.i.d. and Klonopin as well as Seroquel. Physical Examination: Vital Signs: By the time I saw her, her blood pressure was down to normal was 103/65. Her pulse was 89. She was afebrile. Respiratory rate was 18. O2 saturation was 96%. HEENT: Negative. Neck: Supple without any bruit, lymphadenopathy, JVD, or thyromegaly. Chest: Reveals some rales both bases. CARDIAC: Revealed a regular rhythm and rate. No murmurs, gallops, or rubs. Abdomen: Benign. Extremities: Revealed no clubbing, cyanosis, or edema. Diagnostic Data: Creatinine is 1.52. Her troponin was negative. Glucose was 146. Chest x-ray was consistent with volume overload. She had an extremity venous Doppler which was negative in both extr emities. CTA and CT angiogram of the chest in the thorax showed no pulmonary embolus. She had large bilateral pleural effusion, interstitial and alveolar edema. Possibility of COVID was not ruled out by x-ray. Impression And Plan: 1.Acute diastolic congestive heart failure. 2.Possible pneumonia. 3.Hypertension. 4.Chronic anticoagulation therapy. 5.Anxiety. 6.Insomnia and depression. I think Ms. Scott needs to have a 2D echocardiogram done to rule out cardiomyopathy. I agree with h er present regimen that at this point include antibiotics aspirin, Lipitor, Lovenox, Lasix, IV metopr olol and gabapentin. She is also on lisinopril now. We will make decisions after her echocardiogram results are available. I think it may be reasonable for Ms. Scott to eventually have a followup an d have an outpatient stress test as well, preferably an MPI. [email or web address]/[email or web address] Voice ID: [id number] Report ID: [id number]
== END 2020-03-07 15:39 | disposition home or self-care (01) | DRG 291 ==
LOC: ER 18:57 → ERHOLD 21:26 → 2ND 03-04 07:44
PROVIDERS: ADMIT Family Medicine; ATTEND Internal Medicine
DX: I13.0 Hypertensive heart and chronic kidney disease with heart failure and stage 1 through stage 4 chronic kidney disease, or unspecified chronic kidney disease (principal); J18.9 Pneumonia, unspecified organism; I50.33 Acute on chronic diastolic (congestive) heart failure; I24.8 Other forms of acute ischemic heart disease; I48.92 Unspecified atrial flutter; N18.30 Chronic kidney disease, stage 3 unspecified; F32.9 Major depressive disorder, single episode, unspecified; D50.9 Iron deficiency anemia, unspecified; G47.00 Insomnia, unspecified; D63.8 Anemia in other chronic diseases classified elsewhere; I48.91 Unspecified atrial fibrillation; R77.8 Other specified abnormalities of plasma proteins; Z79.01 Long term (current) use of anticoagulants; Z79.899 Other long term (current) drug therapy; Z20.822 Contact with and (suspected) exposure to COVID-19
CPT/HCPCS: 0240U; 36415; 51702; 71045; 71046; 71275; 80048; 80053; 80061; 80076; 82607; 82728; 82947; 83540; 83605; 83735; 83880; 84145; 84439; 84443; 84466; 84484; 85025; 85610; 87040; 90732; 93005; 93307; 93970; 94660; 96365; 96366; 96367; 96372; 96375; 99285; J0456; J0692; J0696; J1160; J1200; J1940; J2785; J7040; J7050; Q2035; Q9967

== ENCOUNTER 2020-03-31 18:34 | Emergency (ER) | payer OTHER ==
[2020-03-31 23:02] LABS: Basophils % 0.9 % (0-1.3); Hematocrit 28.1 % (36.0-45.0); Lymphocytes % 46.1 % (15.3-44.8); MPV 8.5 fL (7.6-11.3); RBC Red Blood Cell Count 3.35 M/uL (3.86-4.86)
[2020-03-31 23:19] LABS: BUN Blood Urea Nitrogen 30 mg/dL (7-18); Bicarbonate 28 mmol/L (21-32); Glucose Level 112 mg/dL (74-106); NT PRO-BNP 1907 pg/mL (<125); Potassium 4.4 mmol/L (3.5-5.1); Sodium Level 137 mmol/L (136-145); Troponin (Emerg Dept Use Only) < 0.02 ng/mL (0.0-0.045)
[2020-03-31 23:57] LABS: Blood Morphology Comment NOT SEEN (NOT SEEN); Platelet Estimate INCR
[2020-04-01 00:44] LABS: SARS-COV-2 RT PCR NEGATIVE (NEGATIVE)
[2020-04-01] MEDS ORDERED: FUROSEMIDE 100 MG/10 ML VIAL IV ONE (01:06)
[2020-04-01] MEDS ORDERED: FUROSEMIDE 40 MG/4 ML VIAL ONE (01:08)
--- NOTE | 2020-04-01 01:30 | ER ---
Nurse's Notes [facility] Name: Adelaida Scott Age: 64 yrs Sex: Female : 1955 Arrival Date: 03/31/2020 Time: 18:38 Bed 26 Private MD: Sammy Powell T Diagnosis: Leukocytosis;Hypertension Presentation: 03/31 18:46 Chief complaint: Patient states: "I came to the ER because I was having some irregular jd3 heart beats. my blood pressure machine said I was having an irregular heart rate so my son called EMS.". Coronavirus screen: At this time, the client does not indicate any symptoms associated with coronavirus-19. Ebola Screen: Patient negative for fever greater than or equal to 101.5 degrees Fahrenheit, and additional compatible Ebola Virus Disease symptoms. Initial Sepsis Screen: Does the patient meet any 2 criteria? No. Patient's initial sepsis screen is negative. Does the patient have a suspected source of infection? No. Patient's initial sepsis screen is negative. Risk Assessment: Do you want to hurt yourself or someone else? Patient reports no desire to harm self or others. Onset of symptoms was March 31, 2020. 18:46 Method Of Arrival: EMS: [facility] jd3 18:46 Acuity: [place] 3 jd3 Historical: - Allergies: 18:47 No Known Allergies; jd3 - PMHx: 18:47 Anxiety; Depression; Hypertension; insomnia; jd3 18:49 Irregular heart rate; jd3 - PSHx: 18:47 hip sx; retina repair; jd3 - Immunization history:: Adult Immunizations up to date. - Social history:: Smoking status: Patient denies any tobacco usage or history of. - Family history:: not pertinent. - Hospitalizations: : Patient was recently seen at. Screenin:10 Abuse screen: Denies threats or abuse. Denies injuries from another. Nutritional sg screening: No deficits noted. Tuberculosis screening: No symptoms or risk factors identified. Never had TB. Fall Risk None identified. Assessment: 23:12 Reassessment: notified dr. solo fonseca patient lab value WBC 21.7. zb 04/01 02:17 Reassessment: awaiting pt transportation to home at this time. sg 03:41 Reassessment: pt reports " no luck finding a ride home" at this time, pt will continue sg to wait in exam room until family available. 07:43 Reassessment: Received report from DULCE Banda who states patient's son is on his way to pick her up. Vital Signs: 03/31 18:47 BP 108 / 70; Pulse 90; Resp 18 S; Temp 98.4(TE); Pulse Ox 100% on R/A; Weight 60.33 kg jd3 (R); Height 5 ft. 0 in. (152.40 cm) (R); Pain 0/10; 20:00 BP 110 / 72; Pulse 88; Resp 16; Pulse Ox 100% on R/A; sg 04/01 00:00 BP 102 / 77; Pulse 90; Resp 16; Pulse Ox 99% on R/A; sg 06:00 BP 112 / 72; Pulse 89; Resp 16; Pulse Ox 100% on R/A; sg 03/31 18:47 Body Mass Index 25.97 (60.33 kg, 152.40 cm) jd3 ED Course: 03/31 18:38 Patient arrived in ED. ds1 18:47 Triage completed. jd3 18:48 Arm band placed on. jd3 18:59 EKG completed in triage. Results shown to MD. jd3 21:51 Kannan Harmon MD is Attending Physician. rn 22:13 XRAY CXR (1 view) In Process Unspecified. EDMS 22:45 Initial lab(s) drawn, by id, sent to lab. Inserted saline lock: 22 gauge in right em forearm, using aseptic technique. Blood collected. 04/01 00:14 CT Chest Wo Con In Process Unspecified. EDMS 00:34 Solo Diaz, DULCE is Primary Nurse. sg 01:25 Sammy Powell MD is Private Physician. sg 01:27 Sammy Powell MD is Referral Physician. rn 09:05 No provider procedures requiring assistance completed. IV discontinued, intact, ss bleeding controlled, No redness/swelling at site. Pressure dressing applied. Administered Medications: 03/31 23:48 Drug: Lasix 40 mg Route: IVP; Site: right forearm; sg 04/01 01:24 Follow up: Response: No adverse reaction sg Outcome: 01:29 Discharge ordered by MD. rn 09:05 Discharged to home via wheelchair, with family. ss 09:05 Condition: good 09:05 Discharge instructions given to patient, Instructed on discharge instructions, follow up and referral plans. Demonstrated understanding of instructions, follow-up care. 09:05 Patient left the ED. ss Signatures: Dispatcher [employer] Solo Ortez, RN Emre Cazares RN RN Justina Torres ds1 Kannan Harmon MD MD rn Smirch, Shelby, RN RN ss Davies, Jonathon, RN RN jd3 Brown, Zipporah, RN RN zb Corrections: (The following items were deleted from the chart) 03/31 18:58 18:46 Chief complaint: Patient states: "I came to the ER because I was having some jd3 irregular heart beats." jd3
--- NOTE | 2020-04-01 01:30 | EDPHYS ---
Physician Documentation [facility] Name: Adelaida Scott Age: 64 yrs Sex: Female : 1955 Arrival Date: 03/31/2020 Time: 18:38 Bed 26 Private MD: Sammy Powell T ED Physician Kannan Harmon HPI: 03/31 22:47 This 64 yrs old Female presents to ER via EMS with complaints of high blood rn pressure. 22:47 Reports was taking blood pressure at home at PCP direction, was "dangerously high" per rn son, then came in for evaluation. Reports mild intermittent sob with exertion, but nothing new going on. NO chest pain. Reports power out and oxygen machine not working, but states doesn't believe she needs oxygen, and not told when she should use it. . Onset: The symptoms/episode began/occurred just prior to arrival. Severity of symptoms: At their worst the symptoms were mild in the emergency department the symptoms have improved. The patient has experienced similar episodes in the past. The patient has been recently seen by a physician:. Historical: - Allergies: 18:47 No Known Allergies; jd3 - PMHx: 18:47 Anxiety; Depression; Hypertension; insomnia; jd3 18:49 Irregular heart rate; jd3 - PSHx: 18:47 hip sx; retina repair; jd3 - Immunization history:: Adult Immunizations up to date. - Social history:: Smoking status: Patient denies any tobacco usage or history of. - Family history:: not pertinent. - Hospitalizations: : Patient was recently seen at. ROS: 22:47 Constitutional: Negative for fever, chills, and weight loss, Eyes: Negative for injury, rn pain, redness, and discharge, Neck: Negative for injury, pain, and swelling, Cardiovascular: Negative for chest pain Respiratory: Negative for cough, wheezing, and pleuritic chest pain, Abdomen/GI: Negative for abdominal pain, nausea, vomiting, diarrhea, and constipation, : Negative for injury, bleeding, discharge, and swelling, MS/Extremity: Negative for injury and deformity, Skin: Negative for injury, rash, and discoloration, Neuro: Negative for headache, weakness, numbness, tingling, and seizure. Exam: 22:47 Constitutional: This is a well developed, well nourished patient who is awake, alert, rn and in no acute distress. Head/Face: Normocephalic, atraumatic. Cardiovascular: Regular rate and rhythm. Respiratory: No increased work of breathing, no retractions or nasal flaring. Abdomen/GI: soft, non-tender Skin: Warm, dry MS/ Extremity: Pulses equal, no cyanosis. Neurovascular intact. Full, normal range of motion. Equal circumference. 1+ pitting edema bilateral lower ext. Neuro: Awake and alert, GCS 15 Vital Signs: 18:47 BP 108 / 70; Pulse 90; Resp 18 S; Temp 98.4(TE); Pulse Ox 100% on R/A; Weight 60.33 kg jd3 (R); Height 5 ft. 0 in. (152.40 cm) (R); Pain 0/10; 20:00 BP 110 / 72; Pulse 88; Resp 16; Pulse Ox 100% on R/A; sg 04/01 00:00 BP 102 / 77; Pulse 90; Resp 16; Pulse Ox 99% on R/A; sg 06:00 BP 112 / 72; Pulse 89; Resp 16; Pulse Ox 100% on R/A; sg 03/31 18:47 Body Mass Index 25.97 (60.33 kg, 152.40 cm) jd3 MDM: 03/31 21:51 Patient medically screened. rn 22:52 ED course: Xray looks improved compared to previous per radiology. No acute rn abnormalities. . 04/01 01:24 Differential Diagnosis Heart failure, dehydration, afib, pulmonary edema.. Data rn reviewed: vital signs, nurses notes, lab test result(s), EKG, radiologic studies, CT scan, plain films, and as a result, I will discharge patient. Counseling: I had a detailed discussion with the patient and/or guardian regarding: the historical points, exam findings, and any diagnostic results supporting the discharge/admit diagnosis, lab results, radiology results, the need for outpatient follow up, to return to the emergency department if symptoms worsen or persist or if there are any questions or concerns that arise at home. Special discussion: I discussed with the patient/guardian in detail that at this point there is no indication for admission to the hospital. It is understood, however, that if the symptoms persist or worsen the patient needs to return immediately for re-evaluation. Based on the history and exam findings, there is no indication for further emergent testing or inpatient evaluation. I discussed with the patient/guardian the need to see the primary care provider for further evaluation of the symptoms. ED course: Pt still asymptomatic, no acute findings on CXR or CT chest, elevated WBC but patient states has been told elevated WBC without clear etiology in past, most likely a type of lymphoproliferative disorder given predominantly lymphocytes, thrombocytosis. Will dc home with pcp f/u. . 03/31 21:57 Order name: BMP; Complete Time: 23:30 03/31 21:57 Order name: CBC with Diff 03/31 21:57 Order name: NT PRO-BNP; Complete Time: 23:30 03/31 21:57 Order name: Troponin (emerg Dept Use Only); Complete Time: 23:30 03/31 23:09 Order name: Manual Differential [facility] 03/31 23:59 Order name: Slides for Pathologist Review [facility] 04/01 00:08 Order name: Procalcitonin; Complete Time: 00:43 [facility] 04/01 00:08 Order name: Blood Culture Adult (2) [facility] 04/01 00:44 Order name: COVID-19/FLU A+B; Complete Time: 01:18 [facility] 04/01 01:23 Order name: Urine Dipstick--Ancillary (enter results) 03/31 21:57 Order name: XRAY CXR (1 view) 03/31 21:57 Order name: EKG; Complete Time: 21:57 03/31 21:57 Order name: Cardiac monitoring; Complete Time: 22:48 03/31 21:57 Order name: EKG - Nurse/Tech; Complete Time: 01:24 rn 03/31 21:57 Order name: IV Saline Lock; Complete Time: 22:48 03/31 21:57 Order name: Labs collected and sent; Complete Time: 22:49 03/31 21:57 Order name: O2 Per Protocol; Complete Time: 22:49 03/31 21:57 Order name: O2 Sat Monitoring; Complete Time: 22:49 03/31 23:35 Order name: Urine Dipstick-Ancillary (obtain specimen); Complete Time: 01:24 rn 03/31 23:46 Order name: CT Chest Wo Con rn 04/01 01:24 Order name: Urine Dipstick-Ancillary EDMS Administered Medications: 03/31 23:48 Drug: Lasix 40 mg Route: IVP; Site: right forearm; sg 04/01 01:24 Follow up: Response: No adverse reaction Disposition: 04/01/20 01:29 Discharged to Home. Impression: Leukocytosis, Hypertension. - Condition is Stable. - Discharge Instructions: Leukocytosis. - Medication Reconciliation Form, Thank You Letter, Antibiotic Education, Prescription Opioid Use form. - Follow up: Sammy Powell MD; When: 1 - 2 days; Reason: Recheck today's complaints, Re-evaluation by your physician. - Problem is new. - Symptoms have improved. Signatures: Dispatcher [employer] EDMS Solo Diaz, DULCE RN Kannan Harmon MD MD rn Smirch, Shelby, RN RN ss Antony Leonard, SUPERVISOR [employer] SUPERVISOR [employer]-Cla1 Diomedes Massey RN RN jd3 Corrections: (The following items were deleted from the chart) 03/31 23:58 23:13 CORONAVIRUS+MR.LAB.BRZ ordered. EDAK EDAK 23:58 23:13 Influenza Screen (A \\T\\ B)+BA.LAB.BRZ ordered. EDAK EDAK 04/01 08:52 03/31 23:35 UA MICROSCOPIC+U.LAB.BRZ ordered. EDAK EDAK 04/01 09:05 01:29 04/01/2020 01:29 Discharged to Home. Impression: Leukocytosis; Hypertension. ss Condition is Stable. Forms are Medication Reconciliation Form, Thank You Letter, Antibiotic Education, Prescription Opioid Use. Follow up: Sammy Powell; When: 1 - 2 days; Reason: Recheck today's complaints, Re-evaluation by your physician. Problem is new. Symptoms have improved. rn
[2020-04-01 01:40] LABS: Urine Blood NEGATIVE (NEG); Urine Glucose NEGATIVE (NEG); Urine Protein NEGATIVE (NEG)
--- NOTE | 2020-04-01 07:30 | RAD REPORT ---
EXAM DESCRIPTION: Kassandra Single View2 10:37 pm CLINICAL HISTORY: Shortness of breath COMPARISON: February 2020 FINDINGS The bibasilar opacities have mostly resolved. The pleural effusions appear resolved. Hazin ess over the right lung base is probably mostly secondary to an overlying breast implant. The heart is normal size. Scoliosis is again demonstrated
[2020-04-01 09:10] VITALS: TEMP 98.4
[2020-04-01 09:14] VITALS: BP 112/72; O2SAT 100
--- NOTE | 2020-04-01 14:38 | EKG ---
Test Date: 2020-03-31 Test Time: 18:53:39 Cut Off Tender Glass: BELLE MEASUREMENT RESULTS: Intervals: Rate: 90 PA: 120 QRSD: 76 QT: 360 QTc: 440 [place]: P: 71 PA: 120 QRS: 2 T: 64 INTERPRETIVE STATEMENTS: Normal sinus rhythm Possible Left atrial enlargement Borderline ECG Compared to ECG 03/05/2020 03:49:04 Atrial premature complex(es) no longer present Short PA interval no longer present Myocardial infarct finding no longer present ST (T wave) deviation no longer present Possible ischemia no longer present Prolonged QT interval no longer present Electronically Signed On 04-01-20 14:37:27 PRESS TOOL MAKER by Galen Mathew
--- NOTE | 2020-04-01 14:50 | RAD REPORT ---
EXAM DESCRIPTION: CT - Thorax Wo Mac - 04/01/2020 7:09 am CLINICAL HISTORY: Sob COMPARISON: 03/03/2020. TECHNIQUE: CT CHEST WITHOUT IV CONTRAST on 03/31/2020 11:46 PM [employer] SUPERVISOR This exam was performed according to our departmental dose-optimization program, which includes autom ated exposure control, adjustment of the mA and/or kV according to patient size and/or use of iterati ve reconstruction technique. FINDINGS: The heart is normal in size. There is no pericardial effusion. There are several borderlin e bilateral axillary lymph nodes measuring up to 1 cm. There are bilateral calcified breast implants. There is minimal biapical pleural parenchymal scarring. Central airways are patent. Lungs are clear w ith no consolidation, mass or interstitial lung disease. In the upper abdomen, the liver is fatty in attenuation. There is at least left renal atrophy. Ther e are no acute osseous findings. No suspicious bony lesions. IMPRESSION: Significantly improved appearance of the lungs with no residual pneumonia or pleural eff usions. Electronically signed by: Kanu Pablo MD 04/01/2020 12:37 AM [employer] SUPERVISOR Due to temporary technical issues with the PACS/Fluency reporting system, reports are being signed by the in house radiologist without review as a courtesy to ensure prompt reporting. The interpreting r adiologist is fully responsible for the content of the report.
== END 2020-04-01 09:05 | disposition home or self-care (01) ==
LOC: ER 18:34
DX: I10 Essential (primary) hypertension (principal); D72.829 Elevated white blood cell count, unspecified; Z20.822 Contact with and (suspected) exposure to COVID-19
CPT/HCPCS: 93005; 87040 ×2; 85025; 80048; 36415 ×2; 81003; 84484; 84145; 83880; 0240U; 71250; 71045; 96374; 99284; J1940

== ENCOUNTER 2020-09-30 16:30 | Inpatient (IN) | payer OTHER ==
--- NOTE | 2020-09-30 17:20 | RAD REPORT ---
EXAM DESCRIPTION: RAD - Chest Single View - 09/30/2020 5:12 pm CLINICAL HISTORY: hypotensive COMPARISON: February 2020, March 2020 TECHNIQUE: AP portable chest image was obtained 09/30/2020 5:12 pm . FINDINGS: Densely calcified breast implant capsules obscure much of the each lower lung field. There is right base parenchymal stranding present less pronounced than seen previously. This could be remn ant scarring from prior infection. Residual or recurrent pneumonia is possible if there are acute sym ptoms localizing to the right base. When adjusting for the dense left breast implant capsule, left umberto ng field appears clear of any acute process. Heart and vasculature are normal. No pneumothorax present. Minimal right pleural effusion or right p leural scarring noted. No acute bony abnormality seen. No acute aortic findings suspected. IMPRESSION: Right base parenchymal stranding present less pronounced than seen previously. This coul d be remnant or recurrent infiltrate. Postinflammatory scarring is possible.
[2020-09-30 17:42] LABS: Urine Blood 2+ (Negative); Urine Glucose Negative (Negative); Urine Protein Negative (Negative); Urine Specific Gravity 1.025 (1.005-1.030); Urine pH 5.5 (5.0-7.0)
[2020-09-30 17:42] LABS: Absolute Lymphocytes (CBC) 1.7 K/uL (0.7-4.9); Basophils % 0.8 % (0-1.3); Hematocrit 26.3 % (36.0-45.0); Lymphocytes % 24.9 % (15.3-44.8); MPV 10.9 fL (7.6-11.3); RBC Red Blood Cell Count 3.14 M/uL (3.86-4.86)
[2020-09-30] MEDS ORDERED: NA CHLORIDE 0.9% 1,000 ML ONE ×2 (17:42→18:56)
[2020-09-30] MEDS ORDERED: D50W 50 ML IV ONE (17:42)
[2020-09-30] MEDS ORDERED: HYDROCORTISONE SUC 100 MG INJ ONE (17:43)
[2020-09-30 17:50] LABS: Protime INR 1.93
[2020-09-30 17:58] LABS: Urine Bacteria <20 /HPF (<20); Urine RBC <5 /HPF (NONE SEEN)
[2020-09-30] MEDS ORDERED: DOPAMINE/D5W 400 MG/250 ML BAG IV ONE (18:09)
[2020-09-30] MEDS ORDERED: ATROPINE SULF 1 MG/10 ML SYR IV ONE (18:16)
[2020-09-30] MEDS ORDERED: NA CHLORIDE 0.9% 500 ML ONE (18:20)
[2020-09-30] MEDS ORDERED: NOREPINEPHRINE 4mg/D5W 250mL 4 MG/250 ML BAG IV ONE (18:21)
[2020-09-30 18:25] LABS: ALT/SGPT 58 U/L (12-78); AST/SGOT 46 U/L (15-37); Albumin 1.2 g/dL (3.4-5.0); Alkaline Phosphatase 161 U/L (45-117); BUN Blood Urea Nitrogen 85 mg/dL (7-18); Bicarbonate 18 mmol/L (21-32); Bilirubin Direct < 0.1 mg/dL (0-0.2); Bilirubin Total 0.3 mg/dL (0.2-1.0); Blood Morphology Comment NOT SEEN (NOT SEEN); Creatine Phosphokinase 96 U/L (26-192); Glucose Level 57 mg/dL (74-106); Platelet Estimate ADEQ; Protein, Total 5.8 g/dL (6.4-8.2); Sodium Level 153 mmol/L (136-145); Troponin (Emerg Dept Use Only) < 0.02 ng/mL (0.0-0.045); White Blood Cell Scan OK (OK)
[2020-09-30 18:28] LABS: Potassium 6.4 mmol/L (3.5-5.1)
[2020-09-30] MEDS ORDERED: MIDAZOLAM HCL 2 MG/2 ML INJ ONE ×5 (18:31→21:32)
[2020-09-30] MEDS ORDERED: RSI MEDICATION KIT IV ONE (18:31)
[2020-09-30] MEDS ORDERED: CALCIUM GLUCONATE 1 GM IVPB 2 GM/100 ML BAG IV ONE (18:50)
[2020-09-30] MEDS ORDERED: ALBUTEROL 2.5 MG/3 ML NEB SOL ONE (18:50)
--- NOTE | 2020-09-30 18:51 | ER ---
Nurse's Notes [facility] Name: Adelaida Scott Age: 65 yrs Sex: Female : 1955 Arrival Date: 09/30/2020 Time: 16:36 Bed 26 Private MD: Diagnosis: Altered mental status, unspecified;Hypotension, unspecified;Myxedema coma;Cardiac arrest, cause unspecified;Acute kidney failure, unspecified;Hyperkalemia;Hypocalcemia Presentation: 09/30 16:40 Acuity: CLEMENTINA 1 zb 16:40 Chief complaint: EMS states: Son called EMS patient has been refusing to eat for about zb 2-3 days. Son noticed AMS today. Minimal response. Coronavirus screen: At this time, the client does not indicate any symptoms associated with coronavirus-19. Ebola Screen: No symptoms or risks identified at this time. Initial Sepsis Screen: Does the patient meet any 2 criteria? Temp <36.0*C (96.8*F)) or > 38.3*C (100.9*F). Systolic BP < 90 mmHg. Mean Arterial Pressure (MAP) < 65. Altered Mental Status. Does the patient have a suspected source of infection? Yes: Other: Alter mental status. Risk Assessment: Do you want to hurt yourself or someone else? Unable to obtain. Onset of symptoms was September 30, 2020. Care prior to arrival: Medication(s) given: Normal saline infusion, 1000 mL, IV initiated. 22 GA, in the left forearm, Glucose check: 79 Oxygen administered. via nasal cannula. Activity prior to arrival: confused. 16:40 Method Of Arrival: EMS: [facility] zb Triage Assessment: 16:40 General: Appears distressed, unkempt, malnourished, Behavior is listless. Pain: Unable zb to use pain scale. Patient is disoriented. Neuro: Level of Consciousness is obeys commands, lethargic, Oriented to unable to assess . Cardiovascular: Heart tones present Capillary refill is > 3 seconds is sluggish in bilateral fingers toes. Respiratory: Airway is patent Respiratory effort is shallow, Respiratory pattern is regular, symmetrical. GI: Abdomen is flat. Derm: Skin is fragile, is thin, with poor turgor Skin is dusky, mottled, pale, Skin temperature is cool. Historical: - Allergies: 20:30 No Known Allergies; zb - Home Meds: 20:30 Wellbutrin Oral [Active]; levothyroxine oral [Active]; zb - PMHx: 20:30 Anxiety; Depression; Hypothyroidism; Hypertension; insomnia; Irregular heart rate; zb - Immunization history:: Adult Immunizations up to date, Client reports having NOT received the Covid vaccine. - Social history:: Smoking status: unknown. - Family history:: not pertinent. - Hospitalizations: : No recent hospitalization is reported. - History obtained from: EMS. Screenin:40 Abuse screen: n/a this time. Nutritional screening: Has had N/V for 3 or more days. zb Tuberculosis screening: No symptoms or risk factors identified. Fall Risk No fall in past 12 months (0 pts). Secondary diagnosis (15 points) IV access (20 points). Ambulatory Aid- None/Bed Rest/Nurse Assist (0 pts). Gait- Impaired (20 pts.). Mental Status- Overestimates/Forgets Limitations (15 pts.). Assessment: 16:40 Reassessment: NRB applied to patient face. MD at bedside. patient able to follow zb commands at this time. 17:20 Reassessment: notified ECP of patient status. Cohen placed and second IV initiated. zb Notified ECP of decreased blood pressure. Patient placed in Trendelenburg. 17:40 Reassessment: Preparing patient of Central Line. ECP at bedside. zb 17:55 Reassessment: Patient blood pressure continues to decrease. ECP at bedside. ECP stated zb he is going to intubate, crash cart moved to bedside and supplies gathered. 18:03 Reassessment: Patient heart decreased No cardiac rhythm. CPR started. zb 18:05 Reassessment: Reassessment: Code blue initiated. Reassessment:. zb 18:11 Reassessment: CPR started. zb 18:13 Reassessment: pulse checked and patient intubated. pulse 51. zb 18:15 Reassessment: US at bedside performed by DULCE Reynolds. Vital Signs: 17:14 Weight 40.82 kg; ld1 17:26 BP 60 / 47; Pulse 38; Resp 23; Temp 97.2(R); Pulse Ox 100% on 15% Non-rebreather mask; zb Weight 40.82 kg; Height 5 ft. 2 in. (157.48 cm); 17:32 BP 65 / 23; Pulse 73; Resp 24; Pulse Ox 97% on 15% Non-rebreather mask; zb 17:45 BP 51 / 18; Pulse 56; Pulse Ox 97% on 15% Non-rebreather mask; zb 17:49 BP 89 / 69; Pulse 39; Resp 10; zb 18:00 BP 59 / 33; Pulse 35; zb 18:15 BP 53 / 44; Pulse 70; Resp 16; Pulse Ox 100% on ETT vent; zb 18:50 BP 90 / 52; Pulse 49; Resp 16; Pulse Ox 100% on 100% FiO2 ETT vent; zb 19:06 BP 103 / 88; Pulse 45; Resp 16; Pulse Ox 100% on 100% FiO2 ETT vent; zb 19:17 BP 102 / 89; Pulse 44; Resp 16; Pulse Ox 100% on 100% FiO2 ETT vent; zb 19:30 BP 103 / 92; Pulse 43; Resp 16; Pulse Ox 100% on 100% FiO2 ETT vent; zb 19:45 BP 90 / 76; Pulse 71; Resp 22; Pulse Ox 100% on 100% FiO2 ETT vent; zb 20:20 BP 123 / 85; Pulse 84; Resp 16; Pulse Ox 100% on 100% FiO2 ETT vent; zb 17:26 Body Mass Index 16.46 (40.82 kg, 157.48 cm) zb ED Course: 16:36 Patient arrived in ED. tr6 16:39 Kannan Harmon MD is Attending Physician. rn 16:40 Patient has correct armband on for positive identification. secured entrance monitor on. Pulse zb ox on. NIBP on. Notified ED physician of vital signs. 17:00 Initial lab(s) drawn, by me, sent to lab. Missed attempt(s): 20 gauge in left wrist. zb 17:12 Chest Single View XRAY In Process Unspecified. EDMS 17:15 COVID swab sent to lab. zb 17:19 Inserted saline lock: 22 gauge in left antecubital area, using aseptic technique. Blood mt collected. 17:20 Cohen cath inserted, using sterile technique, 16 Fr., by me, balloon inflated, to zb gravity drainage, urine specimen collected. Patient tolerated well. 17:43 Urine Culture Sent. ld1 17:43 Urine Microscopic Only Sent. ld1 17:55 Assisted provider with central line placement. Set up central line tray. Triple lumen zb line placed in right internal jugular. Line placed by Kannan Harmon MD Placement verified by CXR, Dressed with Tegaderm, Blood was collected. Patient tolerated well. 18:19 Stacy Aguilar, RN is Primary Nurse. zb 18:24 Triage completed. zb 18:30 XRAY Chest (1 view) In Process Unspecified. EDMS 18:42 Marc Clemente DO is Hospitalizing Provider. rn 08 04:20 CMP Sent. lh3 08 10:20 Echocardiogram with doppler completed by optometric technician. tc Administered Medications: 09/30 16:45 CANCELLED (Duplicate Order): NS 0.9% (30 ml/kg) 30 ml/kg IV at bolus once; Sepsis rn Protocol 17:26 Drug: NS 0.9% 1000 ml Route: IV; Rate: 1000 ml; Site: left antecubital; ld1 21:37 Follow up: Response: No adverse reaction; IV Status: Completed infusion; IV Intake: zb 1000ml 17:26 Drug: D50W 50 ml Route: IVP; Site: left antecubital; ld1 17:26 Drug: HydroCORTISONE 100 mg Route: IVP; Site: left antecubital; ld1 18:05 Drug: Levophed (norepinephrine) (4 mg/250 mL D5W 4 mcg/min Route: IV; Rate: calculated ld1 rate; Site: right antecubital; 18:05 Drug: Dopamine drip 5 mcg/kg/min - (DOPamine 400 mg, D5W 250 ml) Route: IV; Rate: ld1 calculated rate; Site: right antecubital; 21:39 Follow up: IV Status: Infusion continued upon admission; IV Intake: 50ml zb 18:10 Drug: NS 0.9% 1000 ml Route: IV; Rate: 1000 ml; Site: right antecubital; zb 21:39 Follow up: Response: No adverse reaction; IV Status: Completed infusion; IV Intake: zb 1000ml 18:10 Drug: levothyroxine 200 mcg Route: IV; Rate: calculated rate; Site: right jugular; zb 21:40 Follow up: Response: No adverse reaction; IV Status: Completed infusion; IV Intake: 10mlzb 18:11 Drug: Sodium Bicarbonate 1 amp Route: IVP; Site: left antecubital; zb 21:37 Follow up: Response: No adverse reaction zb 18:20 Drug: Calcium Gluconate 2 grams Route: IVPB; Infused Over: 60 mins; Site: left zb antecubital; 21:39 Follow up: Response: No adverse reaction; IV Status: Completed infusion; IV Intake: zb 200ml 18:30 Drug: NS 0.9% 500 ml Route: IV; Rate: bolus; Site: right antecubital; zb 21:38 Follow up: Response: No adverse reaction; IV Status: Completed infusion; IV Intake: zb 500ml 18:37 CANCELLED (Duplicate Order): NS 0.9% 1000 ml IV at 1000 ml once rn 18:53 CANCELLED (Other Intervention Used): D5-1/2 NS 1000 ml IV at 125 ml/hr continuous la1 19:00 Drug: Versed (midazolam) 1 mg Route: IVP; Site: right jugular; zb 21:38 Follow up: Response: No adverse reaction zb 19:17 Drug: Versed (midazolam) 2 mg Route: IVP; Site: right jugular; zb 21:37 Follow up: Response: No adverse reaction zb 19:45 Drug: HALdol (haloperidol) 2 mg Route: IVP; Site: right jugular; zb 21:37 Follow up: Response: No adverse reaction zb 19:45 Drug: fentaNYL (PF) 25 mcg Route: IVP; Site: right antecubital; zb 21:37 Follow up: Response: No adverse reaction; Pain is decreased zb 21:00 Drug: D5W 1000 ml Route: IV; Rate: 100 ml/hr; Site: right jugular; zb 21:42 Follow up: IV Status: Completed infusion; IV Intake: 100ml zb 21:29 Drug: HYDROmorphone 1 mg {Note: RASS +1.} Route: IVP; Site: right jugular; zb 22:34 Follow up: Response: No adverse reaction ld1 Point of Care Testing: Blood Glucose: 17:16 Blood Glucose: 51 mg/dL; ld1 Ranges: Intake: 21:37 IV: 1000ml; Total: 1000ml. zb 21:38 IV: 500ml; Total: 1500ml. zb 21:39 IV: 1000ml; Total: 2500ml. zb 21:39 IV: 200ml; Total: 2700ml. zb 21:39 IV: 50ml; Total: 2750ml. zb 21:40 IV: 10ml; Total: 2760ml. zb 21:42 IV: 100ml; Total: 2860ml. zb Outcome: 18:50 Decision to Hospitalize by Provider. rn 10/02 11:53 Patient left the ED. ll1 Signatures: Dispatcher [employer] EDMS Kannan Harmon MD MD rn Callis, Jolene, cookie mixer helper EKG [facility] Diaz, [place] Ricardo Hung RN RN ll1 Stacy Aguilar RN RN zb Dibbern, Lauren, RN RN ld1 Jolene Ruiz RN RN tr6 Suad Duke RN RN 3 Antony Leonard [facility] Corrections: (The following items were deleted from the chart) 09/30 20:53 18:50 BP 90 / 52; Pulse 49bpm; Resp 16bpm; Pulse Ox 100% FiO2 60% vent; zb zb 20:53 19:06 BP 103 / 88; Pulse 45bpm; Resp 16bpm; Pulse Ox 100% FiO2 60% vent; zb zb 20:53 19:17 BP 102 / 89; Pulse 44bpm; Resp 16bpm; Pulse Ox 100% FiO2 60% vent; zb zb 20:53 19:30 BP 103 / 92; Pulse 43bpm; Resp 16bpm; Pulse Ox 100% FiO2 60% vent; zb zb 20:53 19:45 BP 90 / 76; Pulse 71bpm; Resp 22bpm; Pulse Ox 100% FiO2 60% vent; zb zb
--- NOTE | 2020-09-30 18:52 | EDPHYS ---
Physician Documentation [facility] Name: Adelaida Scott Age: 65 yrs Sex: Female : 1955 Arrival Date: 09/30/2020 Time: 16:36 Bed 26 Private MD: ED Physician Kannan Harmon HPI: 09/30 16:49 This 65 yrs old Female presents to ER via Unassigned with complaints of rn Altered mental status, weakness. 16:49 The patient presents with confusion, decreased mental status, decreased responsiveness. rn Onset: The symptoms/episode began/occurred at an unknown time. Possible causes: unknown. Associated signs and symptoms: Pertinent positives: confusion, weakness, Pertinent negatives: abdominal pain, chest pain. Current symptoms: In the emergency department the patient's symptoms are unchanged from the initial presentation. It is unknown whether or not the patient has had similar symptoms in the past. It is unknown whether or not the patient has recently seen a physician. EMS reports called out for altered mental status and generalized weakness. Unknown onset. They report history of hypertension and hypothyroidism only. Patient slow to respond and seems confused, but denies local pain. EMS reports bradycardic and hypotensive, tried atropine without any measurable response.. Historical: - Allergies: 20:30 No Known Allergies; zb - Home Meds: 20:30 Wellbutrin Oral [Active]; levothyroxine oral [Active]; zb - PMHx: 20:30 Anxiety; Depression; Hypothyroidism; Hypertension; insomnia; Irregular heart rate; zb - Immunization history:: Adult Immunizations up to date, Client reports having NOT received the Covid vaccine. - Social history:: Smoking status: unknown. - Family history:: not pertinent. - Hospitalizations: : No recent hospitalization is reported. - History obtained from: EMS. ROS: 16:49 Unable to obtain ROS due to altered mental status. rn Exam: 16:49 Constitutional: This is a well developed, disheveled patient, slow to respond. rn Head/Face: Normocephalic, atraumatic. Eyes: Periorbital areas with no swelling, redness, or edema. ENT: Dry mucous membranes Neck: No neck masses. No Meningismus. Cardiovascular: Bradycardic, regular. No pulse deficits. Respiratory: Mild tachypnea Abdomen/GI: Soft, nontender, scaphoid abdomen Skin: Extremely dry and cracked skin throughout MS/ Extremity: Diminished distal pulses but equal bilaterally Neuro: Awake, slow to respond but mumbles answers. Weak throughout with 3+/5 strength in all 4 extremities. Localizes and withdraws from pain in all 4 extremities. Vital Signs: 17:14 Weight 40.82 kg; ld1 17:26 BP 60 / 47; Pulse 38; Resp 23; Temp 97.2(R); Pulse Ox 100% on 15% Non-rebreather mask; zb Weight 40.82 kg; Height 5 ft. 2 in. (157.48 cm); 17:32 BP 65 / 23; Pulse 73; Resp 24; Pulse Ox 97% on 15% Non-rebreather mask; zb 17:45 BP 51 / 18; Pulse 56; Pulse Ox 97% on 15% Non-rebreather mask; zb 17:49 BP 89 / 69; Pulse 39; Resp 10; zb 18:00 BP 59 / 33; Pulse 35; zb 18:15 BP 53 / 44; Pulse 70; Resp 16; Pulse Ox 100% on ETT vent; zb 18:50 BP 90 / 52; Pulse 49; Resp 16; Pulse Ox 100% on 100% FiO2 ETT vent; zb 19:06 BP 103 / 88; Pulse 45; Resp 16; Pulse Ox 100% on 100% FiO2 ETT vent; zb 19:17 BP 102 / 89; Pulse 44; Resp 16; Pulse Ox 100% on 100% FiO2 ETT vent; zb 19:30 BP 103 / 92; Pulse 43; Resp 16; Pulse Ox 100% on 100% FiO2 ETT vent; zb 19:45 BP 90 / 76; Pulse 71; Resp 22; Pulse Ox 100% on 100% FiO2 ETT vent; zb 20:20 BP 123 / 85; Pulse 84; Resp 16; Pulse Ox 100% on 100% FiO2 ETT vent; zb 17:26 Body Mass Index 16.46 (40.82 kg, 157.48 cm) zb Procedures: 18:01 Central Line: the site was prepped with Betadine, in sterile fashion, a triple lumen rn catheter was inserted, in the right internal jugular vein, in 1 attempts. placement was verified, by CXR, by blood return, the site was dressed with Tegaderm, using sterile technique, the patient tolerated the procedure, well, Using ultrasound guidance, confirmed placement throughout procedure. 18:16 CPR: See CPR flow sheet. Initial patient assessment: agonal respirations, pulses rn present w/ compressions, The presenting cardiac rhythm is asystole. respirations assisted with BVM, regained rhythm, Family notified. Intubation: Ventilated with 100% NRB prior to procedure. O2 saturation prior to procedure was 94 %. Intubated orally using # 4 Victor Hugo blade with 7.5 mm ETT. was successful on first attempt. Ventilated with Ambu bag. Cricoid pressure applied during procedure. Tube secured with ETT fitzegrald at right side of mouth measured 23 cm at teeth. Placement verified by CXR, CO2 detector with (+) color change, auscultating bilateral breath sounds, O2 saturation after procedure was 96 %. Patient tolerated well. MDM: 16:39 Patient medically screened. rn 18:09 ED course: Pt with decreased mental status even since arrival, still responds to rn painful stimuli but doesn't respond like she was. 18:16 ED course: We were caring for intubation given decreased mental status and no rn improvement in vital signs when patient became agonal severely bradycardic and went to asystole. Single epinephrine given intubated immediately without medication with regaining of organized rhythm sinus in the 60s. Notified son of clinical status and change. He states full code. Thus far patient has received antibiotics, glucose, hydrocortisone, dopamine and norepinephrine.. 18:16 Differential Diagnosis: electrolyte abnormality, hypoglycemia, intracranial bleed, rn pneumonia, sepsis, TIA, UTI, volume depletion, sepsis, severe sepsis, pneumonia, UTI, COVID, symptomatic bradycardia. . Data reviewed: vital signs, nurses notes. 18:38 ED course: Pt's son here, states full code, wants everything done.. rn 18:39 Data interpreted: alternative financing specialist: rate is 53 beats/min, rhythm is normal sinus rhythm, rn regular, with no ectopy, Interpretation: bradycardia, Pulse oximetry: on ventilator is 97 %. Interpretation: acceptable. Test interpretation: by ED physician or midlevel provider: ECG, plain radiologic studies, X-ray with right basilar opacification.. Counseling: I had a detailed discussion with the patient and/or guardian regarding: the historical points, exam findings, and any diagnostic results supporting the discharge/admit diagnosis, lab results, radiology results, the need for further work-up and treatment in the hospital. Response to treatment: the patient's symptoms have mildly improved after treatment, and as a result, I will admit patient. Admission orders: after a detailed discussion of the patient's condition and case, the admit orders are written by me. ED course: Patient with worsening renal failure, hyperkalemia, acidosis. Ordered calcium gluconate and sodium bicarbonate. Also with urinary infection, status post antibiotics. Hypotension could be secondary to renal failure and myxedema coma versus septic shock, on dopamine and Levophed at this point. Patient intubated on a ventilator and has a right internal jugular line. Updated son and son at bedside. Will admit to hospitalist service for further care.. 18:54 Data interpreted: Arterial blood gas: pH: 7.017, PO2: 237, PCO2: 63.9, HCO3: 15.6, rn Oxygen saturation: 97.7, Oxygen: Interpretation: metabolic acidosis. respiratory acidosis. 09/30 16:45 Order name: Basic Metabolic Panel 09/30 16:45 Order name: Blood Culture Adult (2) 09/30 16:45 Order name: CBC with Diff 09/30 16:45 Order name: CPK 09/30 16:45 Order name: LFT's 09/30 16:45 Order name: Lactate; Complete Time: 18:08 09/30 16:45 Order name: Procalcitonin; Complete Time: 18:33 09/30 16:45 Order name: Protime (+inr); Complete Time: 18:08 09/30 16:45 Order name: Ptt, Activated; Complete Time: 18:08 09/30 16:45 Order name: Troponin (emerg Dept Use Only); Complete Time: 18:33 09/30 16:45 Order name: Urine Culture 09/30 16:45 Order name: Urine Microscopic Only; Complete Time: 18:01 09/30 16:45 Order name: TSH; Complete Time: 18:33 09/30 16:45 Order name: T4 Free; Complete Time: 18:33 09/30 16:45 Order name: Basic Metabolic Panel; Complete Time: 18:33 EDOK 09/30 16:45 Order name: Blood Culture [facility] 09/30 16:45 Order name: CBC with Automated Diff; Complete Time: 18:33 EDMS 09/30 16:45 Order name: Creatine Phosphokinase; Complete Time: 18:33 EDMS 09/30 16:45 Order name: Liver (Hepatic) Function; Complete Time: 18:33 EDMS 09/30 16:46 Order name: COVID-19 : Document "Date of Symptom Onset" if Symptomatic. rn 09/30 17:28 Order name: Glucose, Ancillary Testing; Complete Time: 17:29 EDMS 09/30 17:29 Order name: Glucose, Ancillary Testing EDMS 09/30 17:42 Order name: Urine Dipstick-Ancillary EDMS 09/30 18:12 Order name: Glucose, Ancillary Testing; Complete Time: 18:20 EDMS 09/30 18:25 Order name: CBC Smear Scan; Complete Time: 18:33 EDMS 09/30 18:30 Order name: Cortisol mt 09/30 18:31 Order name: Cortisol EDMS 09/30 18:54 Order name: ABG Arterial Blood Gas; Complete Time: 19:09 EDMS 09/30 21:55 Order name: CMP la1 09/30 22:18 Order name: SARS-COV-2 RT PCR; Complete Time: 23:29 EDMS 09/30 16:45 Order name: Chest Single View XRAY; Complete Time: 17:29 rn 09/30 16:46 Order name: CT Head Brain wo Cont rn 09/30 18:02 Order name: XRAY Chest (1 view); Complete Time: 19:09 rn 09/30 23:31 Order name: ABG Arterial Blood Gas; Complete Time: 09:17 EDMS 10/01 00:33 Order name: Comprehensive Metabolic Panel; Complete Time: 09:17 EDMS 10/01 04:16 Order name: CBC with Automated Diff; Complete Time: 09:17 EDMS 10/01 04:45 Order name: PTH Intact; Complete Time: 09:17 EDMS 10/01 04:59 Order name: Manual Differential; Complete Time: 09:17 EDMS 10/01 05:32 Order name: Comprehensive Metabolic Panel; Complete Time: 09:17 EDMS 10/01 05:33 Order name: Uric Acid; Complete Time: 09:17 EDMS 10/01 05:33 Order name: Lipid Profile; Complete Time: 09:17 EDMS 10/01 05:34 Order name: T3 Free; Complete Time: 09:17 EDMS 08/19 05:34 Order name: Magnesium; Complete Time: 09:17 EDMS 10/01 05:34 Order name: Thyroid Stimulating Hormone; Complete Time: 09:17 EDMS 10/01 05:34 Order name: Transferrin Sat/Iron Binding; Complete Time: 09:17 EDMS 10/01 05:35 Order name: Ferritin; Complete Time: 09:17 EDMS 10/01 07:02 Order name: Gram Stain--Aerobic Bottle EDMS 10/01 07:02 Order name: Gram Stain--Anaerobic Bottle EDMS 10/01 07:13 Order name: Gram Stain--Aerobic Bottle EDMS 10/01 07:30 Order name: Gram Stain--Anaerobic Bottle EDMS 10/01 07:41 Order name: RAD; Complete Time: 09:17 EDMS 10/01 07:49 Order name: ABG Arterial Blood Gas; Complete Time: 09:17 EDMS 10/01 07:51 Order name: T4 Free; Complete Time: 09:17 EDMS 10/01 09:13 Order name: US; Complete Time: 09: EDMS 10/02 04:53 Order name: Comprehensive Metabolic Panel EDMS 10/02 04:53 Order name: Magnesium EDMS 10/02 07:08 Order name: CBC with Automated Diff EDMS 10/02 08:44 Order name: RAD EDMS 09/30 16:45 Order name: Accucheck; Complete Time: 17:17 rn 09/30 16:45 Order name: Cardiac monitoring; Complete Time: 17: rn 09/30 16:45 Order name: EKG - Nurse/Tech; Complete Time: 17:15 rn 09/30 16:45 Order name: IV Saline Lock - Large Bore; Complete Time: 17: rn 09/30 16:45 Order name: Labs collected and sent; Complete Time: 17: rn 09/30 16:45 Order name: O2 Per Protocol; Complete Time: 17: rn 18 16:45 Order name: O2 Sat Monitoring; Complete Time: 17: rn 18 16:45 Order name: Urine Dipstick-Ancillary (obtain specimen); Complete Time: 17:43 rn 18 18:34 Order name: Cohen; Complete Time: 21:40 rn 18 19:41 Order name: Misc. Order: Give additional 1L NS Bolus and change rate of D5W with Bicard la1 to 75cc/hr for tonight.; Complete Time: 21:35 09/30 19:42 Order name: Nathen. Order: Repeat CMP at 2100; Complete Time: 21:35 la1 Administered Medications: 16:45 CANCELLED (Duplicate Order): NS 0.9% (30 ml/kg) 30 ml/kg IV at bolus once; Sepsis rn Protocol 17:26 Drug: NS 0.9% 1000 ml Route: IV; Rate: 1000 ml; Site: left antecubital; ld1 21:37 Follow up: Response: No adverse reaction; IV Status: Completed infusion; IV Intake: zb 1000ml 17:26 Drug: D50W 50 ml Route: IVP; Site: left antecubital; ld1 17:26 Drug: HydroCORTISONE 100 mg Route: IVP; Site: left antecubital; ld1 18:05 Drug: Levophed (norepinephrine) (4 mg/250 mL D5W 4 mcg/min Route: IV; Rate: calculated ld1 rate; Site: right antecubital; 18:05 Drug: Dopamine drip 5 mcg/kg/min - (DOPamine 400 mg, D5W 250 ml) Route: IV; Rate: ld1 calculated rate; Site: right antecubital; 21:39 Follow up: IV Status: Infusion continued upon admission; IV Intake: 50ml zb 18:10 Drug: NS 0.9% 1000 ml Route: IV; Rate: 1000 ml; Site: right antecubital; zb 21:39 Follow up: Response: No adverse reaction; IV Status: Completed infusion; IV Intake: zb 1000ml 18:10 Drug: levothyroxine 200 mcg Route: IV; Rate: calculated rate; Site: right jugular; zb 21:40 Follow up: Response: No adverse reaction; IV Status: Completed infusion; IV Intake: 10mlzb 18:11 Drug: Sodium Bicarbonate 1 amp Route: IVP; Site: left antecubital; zb 21:37 Follow up: Response: No adverse reaction zb 18:20 Drug: Calcium Gluconate 2 grams Route: IVPB; Infused Over: 60 mins; Site: left zb antecubital; 21:39 Follow up: Response: No adverse reaction; IV Status: Completed infusion; IV Intake: zb 200ml 18:30 Drug: NS 0.9% 500 ml Route: IV; Rate: bolus; Site: right antecubital; zb 21:38 Follow up: Response: No adverse reaction; IV Status: Completed infusion; IV Intake: zb 500ml 18:37 CANCELLED (Duplicate Order): NS 0.9% 1000 ml IV at 1000 ml once rn 18:53 CANCELLED (Other Intervention Used): D5-1/2 NS 1000 ml IV at 125 ml/hr continuous la1 19:00 Drug: Versed (midazolam) 1 mg Route: IVP; Site: right jugular; zb 21:38 Follow up: Response: No adverse reaction zb 19:17 Drug: Versed (midazolam) 2 mg Route: IVP; Site: right jugular; zb 21:37 Follow up: Response: No adverse reaction zb 19:45 Drug: HALdol (haloperidol) 2 mg Route: IVP; Site: right jugular; zb 21:37 Follow up: Response: No adverse reaction zb 19:45 Drug: fentaNYL (PF) 25 mcg Route: IVP; Site: right antecubital; zb 21:37 Follow up: Response: No adverse reaction; Pain is decreased zb 21:00 Drug: D5W 1000 ml Route: IV; Rate: 100 ml/hr; Site: right jugular; zb 21:42 Follow up: IV Status: Completed infusion; IV Intake: 100ml zb 21:29 Drug: HYDROmorphone 1 mg {Note: RASS +1.} Route: IVP; Site: right jugular; zb 22:34 Follow up: Response: No adverse reaction ld1 Point of Care Testing: Blood Glucose: 17:16 Blood Glucose: 51 mg/dL; ld1 Ranges: Critical Glucose Levels:Adult <50 mg/dl or >400 mg/dl <40 mg/dl or >180 mg/dl Disposition: 18:39 Critical Care:. rn Disposition Summary: 09/30/20 18:50 Hospitalization Ordered Hospitalization Status: Inpatient Admission rn Provider: Marc Clemente rn Condition: Serious rn Problem: new rn Symptoms: have improved rn Bed/Room Type: Standard rn Location: [facility] ER HOLD(09/30/20 21:51) tl1 Room Assignment: ERHOLD-(09/30/20 21:51) tl1 Diagnosis - Altered mental status, unspecified rn - Hypotension, unspecified rn - Myxedema coma rn - Cardiac arrest, cause unspecified rn - Acute kidney failure, unspecified rn - Hyperkalemia rn - Hypocalcemia rn Forms: - Medication Reconciliation Form rn - SBAR form workers compensation defense attorney time excluding procedures: 18:39 Critical care time: Bedside Care: 80 minutes, Consultation: 10 minutes, Family rn Intervention: 10 minutes. Total time: 100 minutes Signatures: Dispatcher [employer] EDMS Kannan Harmon MD MD rn Attema, Lee, STRATEGIC MARKETING MANAGER-C STRATEGIC MARKETING MANAGER-Cla1 Roseanne Bowen, RN RN tl1 Stacy Aguilar RN RN Divine Rose, RN RN ld1 Corrections: (The following items were deleted from the chart) 16:45 16:45 NS 0.9% (30 ml/kg) 30 ml/kg IV at bolus once; Sepsis Protocol ordered. rn rn 18:37 18:33 NS 0.9% 1000 ml IV at 1000 ml once ordered. rn rn 18:53 18:37 D5-1/2 NS 1000 ml IV at 125 ml/hr continuous ordered. rn la1 21:51 18:50 Intensive Care Unit rn tl1 21:51 18:50 rn tl1
[2020-09-30 18:58] LABS: Blood Gas Oxyhemoglobin 96.2 % (94-97); Blood O2 Saturation 97.7 % (92-98.5)
[2020-09-30] MEDS ORDERED: LEVOTHYROXINE SODIUM 100 MCG VIAL IV ONE (19:00)
--- NOTE | 2020-09-30 19:06 | RAD REPORT ---
EXAM DESCRIPTION: RAD - Chest Single View - 09/30/2020 6:30 pm CLINICAL HISTORY: post central line COMPARISON: September 30 TECHNIQUE: AP portable chest image was obtained 09/30/2020 6:30 pm . FINDINGS: Endotracheal tube has been placed. Tip is in good position, mid aortic arch level, 2.8 cm above the thierry. Right jugular central line has been placed with the tip in the proximal SVC. No pneumothorax. Heart, vasculature and lung markings are not clearly different from earlier study. IMPRESSION: ET tube in good position mid aortic arch level 2.8 cm above the thierry. Right jugular central line with the tip in the proximal SVC. No pneumothorax.
[2020-09-30] MEDS ORDERED: HALOPERIDOL LACT 5 MG/ML INJ ONE (20:03)
[2020-09-30] MEDS ORDERED: FENTANYL CITR 100 MCG/2 ML ONE (20:03)
--- NOTE | 2020-09-30 20:09 | P.HP ---
Certification for Inpatient Patient admitted to: Inpatient With expected LOS: >2 Midnights Patient will require the following post-hospital care: None Practitioner: I am a practitioner with admitting privileges, knowledge of patient current condition, hospital course, and medical plan of care. Services: Services provided to patient in accordance with Admission requirements found in Title 42 Section 412.3 of the Code of Federal Regulations Patient History Date of Service: 09/30/20 Reason for admission: Cardiac arrest s/p ROSC History of Present Illness: 65-year-old female with history of chronic diastolic congestive heart failure, hypothyroidism, unknown skin condition presented to the emergency department for bradycardia, hypotension, weakness. Patient was profoundly hypotensive and bradycardic upon arrival to the emergency department, also altered. Patient was given atropine by EMS but did not respond. Son was called and reported that patient had some abnormal labs about a week and a half ago with high potassium level and poor renal function. Patient coded soon after and had approximately 1 to 2 minutes of CPR performed, patient was intubated and central line was placed. Patient was started on dopamine and Levophed drips which are currently maxed out. Son at bedside, ED evaluation demonstrated that patient is in acute renal failure with creatinine 3.7 GFR 12 BUN 85 sodium 153 potassium 6.4 chloride 131 calcium 6.7 procalcitonin 0.24 TSH 23.9 Free T4 0.64 levels of CAD 6.9 hemoglobin 8.3 hematocrit 26.3 ABG with pH 7.02 PCO2 63.9 PO2 237 urinalysis with 20-50 bacteria nitrite positive. Patient's bradycardia and subsequent arrest likely result of acute renal failure, hyperkalemia, CHF, hypothyroidism and possible sepsis. Again patient currently maxed out on 2 vasopressors may require third, son at bedside understands severity of patient's condition very poor prognosis at this time. CT head pending, unable to obtain at this time due to patient's hemodynamic stability. Case was discussed with hospitalist attending and nephrology. Transfer was attempted to all tertiary centers and surrounding area for higher level of care/ICU, all areas saturated no beds available. Allergies No Known Allergies Allergy (Verified 12/08/17 20:33) Home Medications: Duloxetine HCl [Cymbalta] 60 mg PO BID 03/04/20 Ferrous Sulfate [Iron] 325 mg PO DAILY 03/04/20 Gabapentin 300 mg PO BID 03/04/20 Quetiapine Fumarate [Seroquel] 100 mg PO BEDTIME 03/04/20 clonazePAM [Klonopin] 1 mg PO PRN PRN 03/04/20 Amox/Clavulanate [Augmentin 500-125 mg Tab*] 500 mg PO BID #14 tab 03/06/20 Apixaban [Eliquis] 5 mg PO BID #60 tablet 03/06/20 Furosemide [Lasix*] 20 mg PO BIDL #60 tab 03/06/20 Metoprolol Tartrate [Lopressor*] 12.5 mg PO BID 6AM 6PM #60 tab 03/06/20 - Past Medical/Surgical History Diabetic: No -: Hypertension -: insomnia -: depression -: Chronic diastolic congestive heart failure -: Left knee surgery Psychosocial/ Personal History: Patient is retired, lives with her son - Family History Father -: Heart disease - Social History Smoking Status: Unknown if ever smoked Alcohol use: Yes CD- Drugs: Yes Caffeine use: No Place of Residence: Home Review of Systems is unable to be obtained Physical Examination - Physical Exam General: Unresponsive, Other (On ventilator, sedated) HEENT: Atraumatic, PERRLA Neck: Supple Respiratory: Diminished Cardiovascular: No edema, Irregular heart rate/rhythm (Bradycardia rate around 45) Capillary refill: <2 Seconds Gastrointestinal: Hypoactive, Soft and benign Musculoskeletal: No contractures, No erythema, No tenderness Integumentary: Other (Abnormal skin condition with scaling to bilateral legs) Neurological: Other (Unresponsive, on ventilator, intubated) - Studies Laboratory Data (last 24 hrs) 09/30/20 17:16: PT 22.4 H, INR 1.93, APTT 59.3 H 09/30/20 17:16: WBC 6.90, Hgb 8.3 L, Hct 26.3 L, Plt Count 135 L 09/30/20 17:16: Sodium 153 H, Potassium 6.4 H*, BUN 85 H, Creatinine 3.70 H, Glucose 57 L, Total Bilirubin 0.3, AST 46 H, ALT 58, Alkaline Phosphatase 161 H Assessment and Plan - Plan Assessment: Cardiac/respiratory arrest S/P ROSC secondary to acute renal failure with hyperkalemia, hypothyroidism, possible sepsis secondary to urinary tract infection Chronic diastolic congestive heart failure Normocytic anemia Unknown skin condition Plan: Cardiac/respiratory arrest S/P ROSC secondary to acute renal failure with hyperkalemia, hypothyroidism, possible sepsis secondary to urinary tract infection: Patient very ill at this time, maxed out on Levophed/dopamine still bradycardic and hypotensive, very poor prognosis. Patient son at bedside understand situation, case was discussed with nephrology, continue with ventilator care, broad-spectrum antibiotics, treatment for hyperkalemia and acu te renal failure. We will repeat CMP this evening to further address hyperkalemia if this is necessary, may require third vasopressor. Patient given dose of IV levothyroxine in the emergency department will continue with Solu- Cortef 100 mg 3 times daily for possible adrenal shock. Case discussed at length with son, very poor prognosis continue as full code for this evening. Chronic diastolic congestive heart failure: Stable patient appears very dry continue with IV fluids overnight. Normocytic anemia: Transfuse to maintain hemoglobin greater than 8, recheck with morning labs. NEHEMIAH labs. Unknown skin condition: Patient with severe skin condition reported by son to have been following up with dermatology/allergy/immunology, unknown diagnosis has tried many medications unsuccessfully in the past. DVT PPX: Heparin Code status: Full Discharge Plan: LTAC Plan to discharge in: Greater than 2 days - Advance Directives Does patient have a Living Will: No Does patient have a Durable POA for Healthcare: No - Code Status/Comfort Care Code Status Assessed: Yes (Full code at this time) Critical Care: Yes Time Spent Managing Pts Care (In Minutes): 55
[2020-09-30] MEDS ORDERED: NOREPINEPHRINE 4 MG in D5W 250 ML IV PRN (20:18)
[2020-09-30] MEDS ORDERED: DOPAMINE/D5W 400 MG/250 ML BAG IV PRN (20:18)
[2020-09-30] MEDS: D5W 1,000 ML with NA BICARB 8.4% 150 MEQ IV SCH ×2 (20:18)
[2020-09-30] MEDS ORDERED: FENTANYL CITR 100 MCG/2 ML IV PRN (20:18)
[2020-09-30] MEDS ORDERED: ONDANSETRON 4 MG/2 ML VIAL IV PRN (20:18)
[2020-09-30] MEDS ORDERED: ACETAMINOPHEN 500 MG TAB FT PRN (20:18)
[2020-09-30] MEDS: HALOPERIDOL LACT 5 MG/ML INJ IV PRN (20:20)
[2020-09-30] MEDS: MIDAZOLAM HCL 2 MG/2 ML INJ IV PRN (21:15)
[2020-09-30] MEDS ORDERED: D5W 1,000 ML IV ONE (21:24)
[2020-09-30] MEDS ORDERED: HYDROMORPHONE HCL 1 MG/ML INJ IV ONE (21:30)
[2020-09-30] MEDS ORDERED: HYDROMORPHONE HCL 1 MG/ML INJ ONE ×2 (21:50→23:54)
[2020-09-30] MEDS ORDERED: HYDROMORPHONE HCL 1 MG/ML INJ IV PRN (21:54)
[2020-09-30 22:00] VITALS: BMI 17.6
[2020-09-30] MEDS ORDERED: PIPER/TAZO/NS 3.375gm 3.375 GM/100 ML BAG ONE (22:15)
[2020-09-30] MEDS ORDERED: VANCOMYCIN 1 GM/VIAL ONE (22:15)
[2020-09-30] MEDS ORDERED: NA CHLORIDE 0.9% 250 ML ONE (22:15)
[2020-09-30 22:20] LABS: Arterial Blood Carboxyhemoglob 0.4 % (0-1.5); Blood Gas Oxyhemoglobin 94.4 % (94-97); Blood O2 Saturation 96.6 % (92-98.5)
[2020-09-30] MEDS: FAMOTIDINE 20 MG/2 ML VIAL IV SCH (22:23)
[2020-10-01 00:32] LABS: Albumin 1.1 g/dL (3.4-5.0); Bilirubin Total 0.4 mg/dL (0.2-1.0); Protein, Total 5.5 g/dL (6.4-8.2)
[2020-10-01 00:33] LABS: Potassium 5.9 mmol/L (3.5-5.1)
[2020-10-01] MEDS ORDERED: SOD POLYSTYREN SUL 15 GM/60 ML UCUP FT ONE (00:34)
[2020-10-01] MEDS ORDERED: CALCIUM GLUC 10% INJ 4.65 MEQ in NA CHLORIDE 0.9% 100 ML IV ONE (00:35)
[2020-10-01] MEDS ORDERED: DOPAMINE/D5W 400 MG/250 ML BAG IV ONE ×3 (02:46→21:30)
[2020-10-01] MEDS ORDERED: SOD POLYSTYREN SUL 15 GM/60 ML UCUP ONE ×2 (03:14→03:30)
[2020-10-01] MEDS ORDERED: CALCIUM GLUCONATE 1 GM IVPB 1 GM/50 ML BAG IV ONE ×2 (03:20→22:11)
[2020-10-01] MEDS ORDERED: MIDAZOLAM HCL 2 MG/2 ML INJ ONE ×3 (03:39→22:38)
[2020-10-01] MEDS: MIDAZOLAM HCL 2 MG/2 ML INJ IV PRN (03:49)
[2020-10-01 04:15] LABS: Basophils % 0.8 % (0-1.3); Hematocrit 24.7 % (36.0-45.0); Lymphocytes % 11.5 % (15.3-44.8); MPV 10.7 fL (7.6-11.3); RBC Red Blood Cell Count 2.99 M/uL (3.86-4.86)
[2020-10-01 04:59] LABS: Blood Morphology Comment NOTED (NOT SEEN); Burr Cells 2+; Platelet Estimate ADEQ; Target Cells 1+
[2020-10-01 05:32] LABS: Bilirubin Total 0.4 mg/dL (0.2-1.0); Uric Acid 11.4 mg/dL (2.6-6.0)
[2020-10-01 05:33] LABS: Albumin 1.1 g/dL (3.4-5.0); Protein, Total 5.4 g/dL (6.4-8.2); T3 Free 0.69 pg/mL (2.18-3.98); Thyroid Stimulating Hormone 16.8 uIU/mL (0.360-3.740)
[2020-10-01 05:34] LABS: Potassium 5.6 mmol/L (3.5-5.1)
[2020-10-01] MEDS ORDERED: NOREPINEPHRINE 4mg/D5W 250mL 4 MG/250 ML BAG IV ONE (05:42)
--- NOTE | 2020-10-01 06:05 | P.PN ---
Subjective Date of Service: 10/01/20 Chief Complaint: Cardiac arrest s/p ROSC Subjective: Worsening, Other (Patient is sedated and intubated. No response to pain or stimuli.) Physical Examination - Vital Signs Blood Pressure: 114/95 Respirations: 19 - Studies Laboratory Data (last 24 hrs) 09/30/20 17:16: PT 22.4 H, INR 1.93, APTT 59.3 H 09/30/20 17:16: WBC 6.90, Hgb 8.3 L, Hct 26.3 L, Plt Count 135 L 09/30/20 17:16: Sodium 153 H, Potassium 6.4 H*, BUN 85 H, Creatinine 3.70 H, Glucose 57 L, Total Bilirubin 0.3, AST 46 H, ALT 58, Alkaline Phosphatase 161 H Assessment & Plan Discharge Plan: Home Plan to discharge in: Greater than 2 days Physician Review Additional Text: COVID: negative CXR: COMPARISON: February 2020, March 2020 TECHNIQUE: AP portable chest image was obtained 09/30/2020 5:12 pm . FINDINGS: Densely calcified breast implant capsules obscure much of the each lower lung field. There is right base parenchymal stranding present less pronounced than seen previously. This could be remnant scarring from prior infection. Residual or recurrent pneumonia is possible if there are acute symptoms localizing to the right base. When adjusting for the dense left breast implant capsule, left lung field appears clear of any acute process. Heart and vasculature are normal. No pneumothorax present. Minimal right pleural effusion or right pleural scarring noted. No acute bony abnormality seen. No acute aortic findings suspected. IMPRESSION: Right base parenchymal stranding present less pronounced than seen previously. This could be remnant or recurrent infiltrate. Postinflammatory scarring is possible. Physical exam: General: Unresponsive, Other (On ventilator, sedated) HEENT: Atraumatic, PERRLA Neck: Supple Respiratory: Diminished Cardiovascular: No edema, Irregular heart rate/rhythm (Bradycardia rate around 45) Capillary refill: <2 Seconds Gastrointestinal: Hypoactive, Soft and benign Musculoskeletal: No contractures, No erythema, No tenderness Integumentary: Other (Abnormal skin condition with scaling to bilateral legs) Neurological: Other (Unresponsive, on ventilator, intubated) Impression: Cardiac/respiratory arrest S/P ROSC secondary to Multi organ failure acute renal/hepatic failure with hyperkalemia, hypocalcemia, metabolic acidosis, severe hypothyroidism, now with Septic shock secondary to urinary tract infection and bacteremia Chronic diastolic congestive heart failure Normocytic anemia Unknown skin condition Anemia of chronic disease Plan: Cardiac/respiratory arrest S/P ROSC secondary to Multi organ failure with acute renal/hepatic failure with hyperkalemia, hypocalcemia, metabolic acidosis, severe hypothyroidism, now with septic shock secondary to urinary tract infection and bacteremia: Patient is worsening. Now on 2 vasopressors-Dopamine and Levophed. No significant change. Currently on braod spectrum antibiotics- Vanco/Cefepime. Patient received solu cortef. Continue with IV Levothyroxine. Patient with acute renal failure and hyperkalemia. Patient likely not a candidate for dialysis due to Hypotension. We do not have SCHOOL LEADER. Will give another fluid bolus for NS. Continue with maintenance fluids. Spoke to son at length concerning patient's condition. Condition is grave. I readdressed advanced directives. Son has spoken to family. Patient is now DNR. Family is considering in withdrawing care understanding that her condition is grave. Another son is to come and visit. They will make a decision at that time. Will continue with current plan. Will discuss with Pulmonary and Nephrology. Chronic diastolic congestive heart failure: Stable patient appears very dry continue with IV fluids overnight. Normocytic anemia: Transfuse to maintain hemoglobin greater than 8, recheck with morning labs. NEHEMIAH labs. Unknown skin condition: Patient with severe skin condition reported by son to have been following up with dermatology/allergy/immunology, unknown diagnosis has tried many medications unsuccessfully in the past. Anemia of chronic disease: Will monitor. May need transfusion. DVT PPX: Lovenox Code status: Full Discharge Plan: LTAC Time Spent Managing Pts Care (In Minutes): 55
[2020-10-01] MEDS ORDERED: NA CHLORIDE 0.9% 500 ML IV ONE (07:17)
--- NOTE | 2020-10-01 07:41 | RAD REPORT ---
EXAM DESCRIPTION: Kassandra Single View10/01/2020 7:09 am CLINICAL HISTORY: Shortness breath COMPARISON: none FINDINGS: Endotracheal tube has its tip overlying the proximal to mid aortic arch in good position. Nasogastric tube overlies the left lateral abdomen likely the lateral aspect of the stomach. Moderate predominately bibasilar lung opacities. Heart is normal size. A central venous line with its tip in the SVC IMPRESSION: Moderate predominately bibasilar lung opacities may represent pneumonia
[2020-10-01 07:47] LABS: Arterial Blood Carboxyhemoglob 0.5 % (0-1.5); Blood Gas Oxyhemoglobin 88.3 % (94-97); Blood O2 Saturation 90.3 % (92-98.5)
--- NOTE | 2020-10-01 08:31 | EKG ---
Test Date: 2020-09-30 Test Time: 17:42:21 Service Order Expediter: ROHAN MEASUREMENT RESULTS: Intervals: Rate: 71 CA: 178 QRSD: 114 QT: 582 QTc: 632 [place]: P: 85 CA: 178 QRS: 85 T: 64 INTERPRETIVE STATEMENTS: Sinus rhythm with frequent premature ventricular complexes in a pattern of bigeminy Low voltage QRS Prolonged QT Abnormal ECG Compared to ECG 03/31/2020 18:53:39 Ventricular premature complex(es) now present Low QRS voltage now present Prolonged QT interval now present Electronically Signed On 10-01-20 08:29:30 CDT by Galen Mathew
[2020-10-01] MEDS ORDERED: [UNRECOGNIZED DRUG - OTHER] IV SCH (09:00)
[2020-10-01] MEDS ORDERED: FOLIC ACID 1 MG in NA CHLORIDE 0.9% 50 ML IV SCH (09:00)
[2020-10-01] MEDS ORDERED: CEFEPIME 1 GM/VIAL IV SCH (09:00)
[2020-10-01] MEDS ORDERED: CEFEPIME IV SCH (09:00)
[2020-10-01] MEDS ORDERED: THIAMINE 200 MG/2 ML INJ IVP SCH (09:00)
--- NOTE | 2020-10-01 09:13 | RAD REPORT ---
EXAM DESCRIPTION: US - Renal Ultrasound-Complete - 10/01/2020 7:34 am CLINICAL HISTORY: Acute renal insufficiency COMPARISON: 1999 2010 FINDINGS: The right kidney measures 10 cm with an increased echotexture. The left kidney was not visualized secondary to technical factors. Hydronephrosis is not seen. Bladder is decompressed and poorly visualized. Small amount of ascites IMPRESSION: Increased right renal echotexture consistent with parenchymal disease Poor evaluation of the left kidney
[2020-10-01] MEDS: HEPARIN 5000 UNIT/ML 1 ML VIAL IV SCH ×2 (09:27→21:00)
[2020-10-01] MEDS: HYDROCORTISONE SUC 100 MG INJ IV SCH ×2 (09:27→21:00)
[2020-10-01] MEDS ORDERED: HEPARIN 5000 UNIT/ML 1 ML VIAL ONE ×2 (09:31→22:10)
[2020-10-01] MEDS ORDERED: HYDROCORTISONE SUC 100 MG INJ ONE ×2 (09:31→22:10)
[2020-10-01] MEDS ORDERED: NA CHLORIDE 0.9% 500 ML ONE (09:31)
[2020-10-01] MEDS ORDERED: FOLIC ACID 5 MG/ML VIAL ONE (09:32)
[2020-10-01] MEDS ORDERED: CEFEPIME/SWI 1gm 10 ML ONE (09:32)
--- NOTE | 2020-10-01 10:32 | P.CNS ---
Date of Consult: 10/01/20 Reason for Consult: CArdiac arrest Chief Complaint: Cardiac arrest s/p ROSC History of Present Illness: age 65 AW shock and cardiac arrest/ Elec abnormalites/Bradycardia/ on levophed and dopamine. ARF and hyperkalemia Allergies No Known Allergies Allergy (Verified 12/08/17 20:33) Home Medications: Duloxetine HCl [Cymbalta] 60 mg PO BID 03/04/20 Ferrous Sulfate [Iron] 325 mg PO DAILY 03/04/20 Gabapentin 300 mg PO BID 03/04/20 Quetiapine Fumarate [Seroquel] 100 mg PO BEDTIME 03/04/20 clonazePAM [Klonopin] 1 mg PO PRN PRN 03/04/20 Amox/Clavulanate [Augmentin 500-125 mg Tab*] 500 mg PO BID #14 tab 03/06/20 Apixaban [Eliquis] 5 mg PO BID #60 tablet 03/06/20 Furosemide [Lasix*] 20 mg PO BIDL #60 tab 03/06/20 Metoprolol Tartrate [Lopressor*] 12.5 mg PO BID 6AM 6PM #60 tab 03/06/20 - Past Medical/Surgical History Diabetic: No -: Hypertension -: insomnia -: depression -: Chronic diastolic congestive heart failure -: Left knee surgery Psychosocial/ Personal History: Patient is retired, lives with her son - Family History Father Medical History: Heart disease - Social History Alcohol use: Yes CD- Drugs: Yes Caffeine use: No Place of Residence: Home Review of Systems is unable to be obtained Physical Examination Temp Pulse Resp BP Pulse Ox 96.6 F L 55 14 83/69 L 92 10/01/20 08:00 10/01/20 08:00 10/01/20 08:00 10/01/20 08:00 10/01/20 08:00 General: Unresponsive, Comatose Laboratory Data (last 24 hrs) 09/30/20 17:16: PT 22.4 H, INR 1.93, APTT 59.3 H 09/30/20 17:16: WBC 6.90, Hgb 8.3 L, Hct 26.3 L, Plt Count 135 L 09/30/20 17:16: Sodium 153 H, Potassium 6.4 H*, BUN 85 H, Creatinine 3.70 H, Glucose 57 L, Total Bilirubin 0.3, AST 46 H, ALT 58, Alkaline Phosphatase 161 H - Problems (1) Cardiac arrest Current Visit: Yes Status: Acute Plan: Age 65 AW cardiac arrest/ ARF and hyprkalemia and shock/CXRY rev/ Supporive Tx. Fluid given/ pt on vent/ prognosis poor/ FAmily want to withdraw care/ labs rev/ Tx for hyperkalemia also on BS antibiotics
[2020-10-01] MEDS: D5W 1,000 ML with NA BICARB 8.4% 150 MEQ IV SCH ×2 (11:38)
[2020-10-01] MEDS ORDERED: FENTANYL CITR 100 MCG/2 ML ONE ×2 (12:33→15:32)
[2020-10-01] MEDS ORDERED: THIAMINE 200 MG/2 ML INJ ONE (12:41)
[2020-10-01 12:53] VITALS: O2SAT 94
[2020-10-01] MEDS ORDERED: D5W 1,000 ML with NA BICARB 8.4% 150 MEQ IV SCH ×2 (13:30)
[2020-10-01] MEDS: FENTANYL CITR 100 MCG/2 ML IV PRN ×2 (13:38→15:13)
[2020-10-01] MEDS: CALCIUM GLUC 10% INJ 4.65 MEQ in NA CHLORIDE 0.9% 100 ML IV SCH ×2 (13:56→21:30)
--- NOTE | 2020-10-01 15:25 | CON ---
Date of Consultation: 10/01/2020 Reason For Consultation: Elevated BUN and creatinine, hyperkalemia, acidosis. History Of Present Illness: All the information has been obtained from the son by bedside and the re cord as the patient intubated. This is an unfortunate 65-year-old female with significant past medic al history of congestive heart failure, diastolic dysfunction, hypothyroidism, hypertension, the danelle ent was in her regular state of health. Apparently, the patient visited her meter changes records clerk early late in August. At that time, metolazone was added because of the edema. The patient lost almost 17 pounds over the last 2 weeks. The patient started feeling weak. For that reason, brought by EMS. Upon ar rival, the EMS found to be bradycardic, hypotension. The patient was given atropine on the field. T hen, the patient had cardiac arrest. The patient was intubated and CPR was initiated. Primary lab s howing creatinine 3.7, GFR of 12 with hyperkalemia of 6.4 with severe acidosis, pH of 7.02. For that reason, we have been consulted. The patient also found to have hypothyroidism crisis. Over the nig ht, the patient received levothyroxine. The patient was started on bicarb drip. Hyperkalemia was tr eated conservatively as family does not want further aggressive treatment. Today, the patient is still anuric. Still on vent, requiring 100%. The patient is on 2 pressors including dopamine and Levophed. Past Medical History: Includes; 1.Hypertension. 2.Depression. 3.Congestive heart failure, diastolic dysfunction. 4.Chronic kidney disease, baseline creatinine of 2.4 with GFR of 24. Past Surgical History: Knee surgery. Home Medications: Include ferrous sulfate, gabapentin, Seroquel, Augmentin, Klonopin, Oksana cris, Lasix, metoprolol, and metolazone. Family History: Positive for CAD. Social History: Denied smoking. Active alcohol. Denied drugs abuse. Review of Systems: Head and Neck: No red eye. No ear pain. GI: Decreased intake. : Decreased urine output. Anuric currently. Practice Performance Manager: No vaginal discharge. Respiratory: Has shortness of breath. Cardiovascular: Has low blood pressure and bradycardia. Neuro: Generalized weakness. Musculoskeletal: Generalized fatigue. Endocrine: No polydipsia. Skin: No rash. Physical Examination: General: When I saw the patient; the patient on vent. Requiring 100% and PEEP. Vital Signs: Blood pressure 65/54, pulse of 59, afebrile. Chest: Crackles bilateral. Heart: S1, S2. Systolic murmur. Abdomen: Soft, nontender. Extremity: Venous stasis change. No edema. Neuro: The patient on vent, sedated. Laboratory Data: WBC 8.8, H and H 8/24.4. Sodium 152, potassium 5.6, bicarb 17, chloride 129, BUN 7 7, creatinine 3.4, uric acid 11.4, calcium 5.8, magnesium of 2. Iron saturation of 23. Albumin of 1 .1. Corrected calcium is 8.4. TSH of 16, PTH 474. Current Medications: The patient on include; 1.Cefepime. 2.Vancomycin. 3.Levophed. 4.Dopamine. 5.Calcium gluconate. 6.Midazolam. 7.Haloperidol. 8.Bicarb drip. 9.Zofran. 10.Hydrocortisone 100 t.i.d. Assessment And Plan: 1.Acute kidney injury on advanced chronic kidney disease complicated with hyperkalemia, acidosis. I had long discussion with son by bedside regarding the prognosis of the patient and the challenge wit h her low blood pressure as the patient required renal replacement therapy, but with her blood pressu re, she is going to need CRRT. Son understands and elected not to proceed with any dialysis for the time being and we will treat the patient conservatively. We will continue bicarb drip and we will fo llow up. 2.Secondary hyperparathyroidism. We will start the patient on Hectorol and we will monitor the danelle ent. We will start on calcium gluconate. 3.Hypertension, currently septic shock. Hold all blood pressure medications. 4.Acidosis secondary to renal failure, high anion gap metabolic acidosis. Continue bicarb drip. 5.Hyperkalemia secondary to hypothyroidism, renal failure. Continue hydrocortisone. Continue bicar b drip. The patient's family refused any renal replacement therapy. 6.Hypothyroidism with adrenal crisis. Continue levothyroxine IV. Continue hydrocortisone. We will follow up. Time spent examining the patient, reviewing data, placing orders, discussing with family and son by aurora hdez, discussing the case with steamfitter including nursing, discussion with other subspecialty in cluding Pulmonary and Critical Care and hospitalist 75 minutes. SHANTELLE Voice ID: [id number] Report ID: [id number]
[2020-10-01] MEDS ORDERED: D50W 25 GM/50 ML SYRINGE IV ONE (17:36)
[2020-10-01] MEDS: FAMOTIDINE 20 MG/2 ML VIAL IV SCH (21:00)
[2020-10-01] MEDS ORDERED: NA CHLORIDE 0.9% 100 ML ONE (22:10)
[2020-10-01] MEDS ORDERED: VANCOMYCIN 1 GM/VIAL ONE (22:10)
[2020-10-01] MEDS ORDERED: FAMOTIDINE 20 MG/2 ML VIAL IV ONE (22:11)
[2020-10-02] MEDS ORDERED: NOREPINEPHRINE 4mg/D5W 250mL 4 MG/250 ML BAG IV ONE (00:17)
[2020-10-02] MEDS: HALOPERIDOL LACT 5 MG/ML INJ IV PRN (01:41)
[2020-10-02] MEDS ORDERED: HALOPERIDOL LACT 5 MG/ML INJ ONE (01:44)
[2020-10-02] MEDS ORDERED: MIDAZOLAM HCL 2 MG/2 ML INJ ONE (04:39)
[2020-10-02] MEDS ORDERED: ONDANSETRON 4 MG/2 ML VIAL ONE (04:40)
[2020-10-02 04:50] LABS: Bilirubin Total 0.3 mg/dL (0.2-1.0); Protein, Total 5.1 g/dL (6.4-8.2)
[2020-10-02 04:52] LABS: Potassium 6.9 mmol/L (3.5-5.1)
--- NOTE | 2020-10-02 06:26 | P.PN ---
Subjective Date of Service: 10/08/20 Chief Complaint: Cardiac arrest s/p ROSC Physical Examination - Vital Signs Temperature: 96 F Blood Pressure: 151/98 Pulse: 62 Respirations: 17 Pulse Ox (%): 96 - Studies Microbiology Data (last 24 hrs): 09/30/20 18:00 Blood - Blood Blood Culture Gram Stain - Final 09/30/20 18:00 Blood - Blood Gram Stain - Final 09/30/20 17:56 Blood - Blood Blood Culture Gram Stain - Final 09/30/20 17:56 Blood - Blood Gram Stain - Final Assessment And Plan - Plan 1. Acute kidney injury on advanced chronic kidney disease complicated with hyperkalemia, acidosis. I had long discussion with son by bedside regarding the prognosis of the patient and the challenge with her low blood pressure as the patient required renal replacement therapy, but with her blood pressure, she is going to need CRRT. Son understands and elected not to proceed with any dialysis for the time being and we will treat the patient conservatively. We will continue bicarb drip and we will follow up. 2. Secondary hyperparathyroidism. We will start the patient on Hectorol and we will monitor the patient. We will start on calcium gluconate. 3. Hypertension, currently septic shock. Hold all blood pressure medications. 4. Acidosis secondary to renal failure, high anion gap metabolic acidosis. Continue bicarb drip. 5. Hyperkalemia secondary to hypothyroidism, renal failure. Continue hydrocortisone. Continue bicarb drip. The patient's family refused any renal replacement therapy. 6. Hypothyroidism with adrenal crisis. Continue levothyroxine IV. Continue hydrocortisone. We will follow up.
[2020-10-02] MEDS ORDERED: DOPAMINE/D5W 400 MG/250 ML BAG IV ONE (06:32)
--- NOTE | 2020-10-02 06:35 | P.PN ---
Subjective Date of Service: 10/02/20 Chief Complaint: Cardiac arrest s/p ROSC Subjective: Other (Patient continues to decline. Blood pressure is low this morning. Family at bedside. Patient remains intubated) Physical Examination - Vital Signs Temperature: 96 F Blood Pressure: 151/98 Pulse: 62 Respirations: 17 Pulse Ox (%): 96 - Studies Microbiology Data (last 24 hrs): 09/30/20 18:00 Blood - Blood Blood Culture Gram Stain - Final 09/30/20 18:00 Blood - Blood Gram Stain - Final 09/30/20 17:56 Blood - Blood Blood Culture Gram Stain - Final 09/30/20 17:56 Blood - Blood Gram Stain - Final Assessment & Plan Discharge Plan: Home Plan to discharge in: Greater than 2 days Physician Review Additional Text: COVID: negative CXR: COMPARISON: February 2020, March 2020 TECHNIQUE: AP portable chest image was obtained 09/30/2020 5:12 pm . FINDINGS: Densely calcified breast implant capsules obscure much of the each lower lung field. There is right base parenchymal stranding present less pronounced than seen previously. This could be remnant scarring from prior infection. Residual or recurrent pneumonia is possible if there are acute symptoms localizing to the right base. When adjusting for the dense left breast implant capsule, left lung field appears clear of any acute process. Heart and vasculature are normal. No pneumothorax present. Minimal right pleural effusion or right pleural scarring noted. No acute bony abnormality seen. No acute aortic findings suspected. IMPRESSION: Right base parenchymal stranding present less pronounced than seen previously. This could be remnant or recurrent infiltrate. Postinflammatory scarring is possible. Renal US: COMPARISON: 1999 2010 FINDINGS: The right kidney measures 10 cm with an increased echotexture. The left kidney was not visualized secondary to technical factors. Hydronephrosis is not seen. Bladder is decompressed and poorly visualized. Small amount of ascites IMPRESSION: Increased right renal echotexture consistent with parenchymal disease Poor evaluation of the left kidney ECHO: Pending Follow up CXR: Pending Physical exam: General: Other (On ventilator, sedated) patient remains unresponsive HEENT: Atraumatic, PERRLA Neck: Supple Respiratory: Diminished bilateral Cardiovascular: Regular rate rhythm. Capillary refill: <2 Seconds Gastrointestinal: Hypoactive, Soft and benign Musculoskeletal: No contractures, No erythema, No tenderness Integumentary: Other (Abnormal skin condition with scaling to bilateral legs) Neurological: Other (Unresponsive, on ventilator, intubated) Impression: Cardiac/respiratory arrest S/P ROSC secondary to Multi organ failure acute renal/hepatic failure with hyperkalemia, hypocalcemia, metabolic acidosis, severe hypothyroidism, now with Septic shock secondary to urinary tract infection and bacteremia, blood cultures positive for Gram negative rods and Gram-positive cocci Chronic diastolic congestive heart failure Normocytic anemia Unknown skin condition Thrombocytopenia Plan: Cardiac/respiratory arrest S/P ROSC secondary to Multi organ failure acute renal/hepatic failure with hyperkalemia, hypocalcemia, metabolic acidosis, severe hypothyroidism, now with Septic shock secondary to urinary tract infection and bacteremia, blood cultures positive for Gram negative rods and Gram-positive cocci: Patient remains intubated and sedated. Patient condition has continued to worsen. Patient on max dopamine and Levophed. Will start Micah- Synephrine. Patient anemic. Will transfuse 1 unit of blood. Renal function still compromised. Continue with IV antibiotics, Solucortef, and Fluids. Waiting on cultures. Spoke with nephrology yesterday. Family did not want dialysis yesterday. Patient would need ELECTRIC MOTOR REBUILDER which we do not have. Patient likely to continue to decline. Case discussed with son who is making decisions for the patient. Patient remains do not resuscitate. Other family members to visit. Son considering withdrawal of care but for now wants to continue with aggressive management. Will discuss with Pulmonary, Nephrology. Will check chest x-ray today. Echocardiogram pending. I have prepared son for continued decline and possible . Will reassess later to consider withdrawal of care. Chronic diastolic congestive heart failure: Patient remains on the ventilator. Continue IV fluids, vasopressors. Will start 3rd pressor. Patient to get blood. Normocytic anemia: Hemoglobin 6.8. Will transfuse 1 unit of blood. Maintain hemoglobin above 7.0. Unknown skin condition: Patient with severe skin condition reported by son to have been following up with dermatology/allergy/immunology, unknown diagnosis has tried many medications unsuccessfully in the past. Thrombocytopenia: Likely from septic shock will monitor this closely. Patient may require platelets or plasma. DVT PPX: Lovenox hold if platelet count less than 90 Code status: DNR Discharge Plan: Patient remains DNR. Family considering withdrawal of care. Continue with above plan of care. Time Spent Managing Pts Care (In Minutes): 60
[2020-10-02 07:04] LABS: Basophils % 0.3 % (0-1.3); Hematocrit 21.8 % (36.0-45.0); MPV 10.7 fL (7.6-11.3); RBC Red Blood Cell Count 2.62 M/uL (3.86-4.86)
--- NOTE | 2020-10-02 08:44 | RAD REPORT ---
EXAM DESCRIPTION: RAD - Chest Single View - 10/02/2020 7:43 am CLINICAL HISTORY: Septic shock COMPARISON: October 01 TECHNIQUE: AP portable chest image was obtained 10/02/2020 7:43 am . FINDINGS: Endotracheal tube tip is top of the aortic arch 3 cm above the thierry. NG tube extends bel ow the diaphragm, off the field of view. Right-sided central line remains in place. Tip is at the SVC atrial junction. Bilateral lower lung field parenchymal opacities are present showing improvement from prior imaging. No progressive lung parenchymal process. Heart size is stable. No pneumothorax. No enlarging pleural effusion. No acute bony abnormality seen . No acute aortic findings suspected. IMPRESSION: Partial clearing of bilateral lung parenchymal opacification from prior imaging. Signifi cant lung parenchymal disease remains. ET tube in good position. NG tube and right jugular central line in good position as well.
[2020-10-02] MEDS ORDERED: NA CHLORIDE 0.9% 1,000 ML ONE (08:53)
[2020-10-02] MEDS ORDERED: CALCITROL 0.25 MCG CAP PO SCH (09:00)
--- NOTE | 2020-10-02 12:11 | ECHO ---
HEIGHT: 5 ft 0 in WEIGHT: 90 lb 0 oz DATE OF STUDY: 10/02/[address]: Marc Clemente DO 2-DIMENSIONAL: YES M.MODE: YES DOPPLER: YES COLOR FLOW: YES TDS: NO PORTABLE: YES DEFINITY: NO BUBBLE STUDY: NO DIAGNOSIS: SEPTIC SHOCK CARDIAC HISTORY: CATHERIZATION: SURGERY: PROSTHETIC VALVE: PACEMAKER: MEASUREMENTS (cm) DIASTOLIC (NORMALS) SYSTOLIC (NORMALS) IVSd 0.9 (0.6-1.2) LA Diam 2.0 (1.9-4.0) LVEF 46% LVIDd 2.2 (3.5-5.7) LVIDs 1.7 (2.0-3.5) %FS 22% LVPWd 1.0 (0.6-1.2) Ao Diam 2.2 (2.0-3.7) 2 DIMENSIONAL ASSESSMENT: RIGHT ATRIUM: DILATED LEFT ATRIUM: NORMAL RIGHT VENTRICLE: DILATED LEFT VENTRICLE: NORMAL TRICUSPID VALVE: NORMAL MITRAL VALVE: NORMAL PULMONIC VALVE: NORMAL AORTIC VALVE: SCLEROSIS PERICARDIAL EFFUSION: NONE AORTIC ROOT: NORMAL LEFT VENTRICULAR WALL MOTION: MILD GLOBAL HYPOKINESIS. DOPPLER/COLOR FLOW: MILD TRICUSPID REGURGITATION. COMMENTS: MILD TRICUSPID REGURGITATION. AORTIC SCLEROSIS. LEFT VENTRICULAR EJECTION FRACTION 45-49%. DILATED RIGHT ATRIUM AND RIGHT VENTRICLE. NO EFFUSION. TECHNOLOGIST: Kristen FITZPATRICK
--- NOTE | 2020-10-02 13:01 | P.DS ---
Admission Date: 09/30/20 Discharge Date: 10/02/20 Primary Care Provider: unknown Disposition: Reason for Admission: Cardiac arrest s/p ROSC Consultations: Nephrology-Dr. Dennison, Dr. Mendozaante Pulmonary-Dr. Valdovinos Procedures: COVID: negative CXR: COMPARISON: February 2020, March 2020 TECHNIQUE: AP portable chest image was obtained 09/30/2020 5:12 pm . FINDINGS: Densely calcified breast implant capsules obscure much of the each lower lung field. There is right base parenchymal stranding present less pronounced than seen previously. This could be remnant scarring from prior infection. Residual or recurrent pneumonia is possible if there are acute symptoms localizing to the right base. When adjusting for the dense left breast implant capsule, left lung field appears clear of any acute process. Heart and vasculature are normal. No pneumothorax present. Minimal right pleural effusion or right pleural scarring noted. No acute bony abnormality seen. No acute aortic findings suspected. IMPRESSION: Right base parenchymal stranding present less pronounced than seen previously. This could be remnant or recurrent infiltrate. Postinflammatory scarring is possible. Renal US: COMPARISON: 1999 2010 FINDINGS: The right kidney measures 10 cm with an increased echotexture. The left kidney was not visualized secondary to technical factors. Hydronephrosis is not seen. Bladder is decompressed and poorly visualized. Small amount of ascites IMPRESSION: Increased right renal echotexture consistent with parenchymal disease Poor evaluation of the left kidney ECHO: MEASUREMENTS (cm) DIASTOLIC (NORMALS) SYSTOLIC (NORMALS) IVSd 0.9 (0.6-1.2) LA Diam 2.0 (1.9-4.0) LVEF 46% LVIDd 2.2 (3.5-5.7) LVIDs 1.7 (2.0-3.5) %FS 22% LVPWd 1.0 (0.6-1.2) Ao Diam 2.2 (2.0-3.7) 2 DIMENSIONAL ASSESSMENT: RIGHT ATRIUM: DILATED LEFT ATRIUM: NORMAL RIGHT VENTRICLE: DILATED LEFT VENTRICLE: NORMAL TRICUSPID VALVE: NORMAL MITRAL VALVE: NORMAL PULMONIC VALVE: NORMAL AORTIC VALVE: SCLEROSIS PERICARDIAL EFFUSION: NONE AORTIC ROOT: NORMAL LEFT VENTRICULAR WALL MOTION: MILD GLOBAL HYPOKINESIS. DOPPLER/COLOR FLOW: MILD TRICUSPID REGURGITATION. COMMENTS: MILD TRICUSPID REGURGITATION. AORTIC SCLEROSIS. LEFT VENTRICULAR EJECTION FRACTION 45-49%. DILATED RIGHT ATRIUM AND RIGHT VENTRICLE. NO EFFUSION. Follow up CXR: COMPARISON: October 01 TECHNIQUE: AP portable chest image was obtained 10/02/2020 7:43 am . FINDINGS: Endotracheal tube tip is top of the aortic arch 3 cm above the thierry. NG tube extends below the diaphragm, off the field of view. Right-sided central line remains in place. Tip is at the SVC atrial junction. Bilateral lower lung field parenchymal opacities are present showing improvement from prior imaging. No progressive lung parenchymal process. Heart size is stable. No pneumothorax. No enlarging pleural effusion. No acute bony abnormality seen. No acute aortic findings suspected. IMPRESSION: Partial clearing of bilateral lung parenchymal opacification from prior imaging. Significant lung parenchymal disease remains. ET tube in good position. NG tube and right jugular central line in good position as well. Medical Problem List: Acute encephalopathy secondary to multiorgan failure with acute on chronic renal failure stage V with noted hyperkalemia, hypocalcemia, metabolic acidosis complicated with cardiac/respiratory arrest with resuscitation, acute r espiratory failure, septic shock related to UTI with bacteremia, blood cultures showing gram-negative rods and gram-positive cocci Elevated liver function likely related to liver failure Chronic diastolic CHF Anemia of chronic disease Acute thrombocytopenia likely from septic shock Secondary hyperparathyroidism Hypothyroidism Depression with anxiety History of hypertension History of atrial fibrillation Brief History of Present Illness: 65-year-old female with history of chronic diastolic congestive heart failure, hypothyroidism, unknown skin condition presented to the emergency department for bradycardia, hypotension, weakness. Patient was profoundly hypotensive and bradycardic upon arrival to the emergency department along with being altered. Patient was given atropine by EMS but did not respond. Son was called and reported that patient had some abnormal labs about a week and a half ago with high potassium level and poor renal function. While in the ER patient coded. This occurred approximately 1 to 2 minutes with CPR performed. Patient was intubated and central line placed. Due to her hypotension patient was placed on dopamine and Levophed. Lab showed acute renal failure. Hypernatremia noted. Procalcitonin elevated. Patient anemic. Urinalysis showed bacteria. Transfer was attempted to all tertiary care centers in the local area due to the need for ICU and higher level of care. Transfer was denied due to lack of capacity. Patient was admitted to ICU. Hospital Course: Patient presented acute encephalopathy with bradycardia. Patient went into cardiac arrest and hypotension noted. Patient was resuscitated and required intubation. Patient had multiorgan failure primarily related to acute renal injury. Acute renal injury likely with underlying advanced chronic renal disease complicated with hyperkalemia, metabolic acidosis, hyperkalemia, and hypocalcemia. Her condition was further complicated with septic shock secondary to UTI and bacteremia. Blood cultures were positive for gram-negative rods and gram-positive cocci. During the course of her stay patient required ICU level care. Transfer was initiated prior to admission to high-level centers in the area but there were no beds due to lack of capacity. Patient was admitted to ICU. The patient remained intubated and sedated. Patient required aggressive IV fluids, IV antibiotic therapy, IV Solu-Cortef, and vasopressor therapy. Her condition continued to decline. Secondary hyperparathyroidism, metabolic aci dosis, hyperkalemia, hypothyroidism with adrenal crisis was noted. As her condition continued to decline, discussion with son included the possibility of dialysis. The challenge of low blood pressure and the requirement of dialysis was addressed in detail with the son with nephrology. Son wanted to continue with conservative measures. Advanced directives were readdressed early on. Patient was made DO NOT RESUSCITATE. The son understood her condition was grave. As her condition continued to decline further, patient was placed on third vasopressor. IV fluid boluses were given. Patient was found to be more anemic. Transfusion was to be started. Difficulty of dialysis was again readdressed. Son understand the difficulty with this. Son wanted to continue with conservative measures until family was able to come and see the patient. There was the possibility of withdrawal of care but the patient unfortunately as her condition worsened. Vital Signs/Physical Exam: Temp Pulse Resp BP Pulse Ox 97.1 F 60 14 76/52 L 82 L 10/02/20 07:53 10/02/20 07:53 10/02/20 07:53 10/02/20 07:53 10/02/20 07:53 General: Other (Patient ) Laboratory Data at Discharge: WBC 17.80 K/uL (4.3-10.9) H D 10/02/20 04:10 Hgb 6.9 g/dL (12.0-15.0) L* 10/02/20 04:10 Hct 21.8 % (36.0-45.0) L 10/02/20 04:10 Plt Count 92 K/uL (152-406) L D 10/02/20 04:10 PT 22.4 SECONDS (9.5-12.5) H 09/30/20 17:16 INR 1.93 09/30/20 17:16 APTT 59.3 SECONDS (24.3-36.9) H 09/30/20 17:16 Sodium 153 mmol/L (136-145) H 10/02/20 04:10 Potassium 6.9 mmol/L (3.5-5.1) H* 10/02/20 04:10 BUN 77 mg/dL (7-18) H 10/02/20 04:10 Creatinine 3.79 mg/dL (0.55-1.3) H 10/02/20 04:10 Glucose 119 mg/dL (74-106) H 10/02/20 04:10 Uric Acid 11.4 mg/dL (2.6-6.0) H 10/01/20 03:53 Magnesium 2.0 mg/dL (1.8-2.4) 10/02/20 04:10 Total Bilirubin 0.3 mg/dL (0.2-1.0) 10/02/20 04:10 AST 71 U/L (15-37) H 10/02/20 04:10 ALT 73 U/L (12-78) 10/02/20 04:10 Alkaline Phosphatase 163 U/L (45-117) H 10/02/20 04:10 Triglycerides 56 mg/dL (<150) 10/01/20 03:53 Cholesterol 86 mg/dL (<200) 10/01/20 03:53 HDL Cholesterol 57 mg/dL (40-60) 10/01/20 03:53 Cholesterol/HDL Ratio 1.51 10/01/20 03:53 Home Medications: Duloxetine HCl [Cymbalta] 60 mg PO BID 03/04/20 Ferrous Sulfate [Iron] 325 mg PO DAILY 03/04/20 Gabapentin 300 mg PO BID 03/04/20 Quetiapine Fumarate [Seroquel] 100 mg PO BEDTIME 03/04/20 clonazePAM [Klonopin] 1 mg PO PRN PRN 03/04/20 Amox/Clavulanate [Augmentin 500-125 mg Tab*] 500 mg PO BID #14 tab 03/06/20 Apixaban [Eliquis] 5 mg PO BID #60 tablet 03/06/20 Furosemide [Lasix*] 20 mg PO BIDL #60 tab 03/06/20 Metoprolol Tartrate [Lopressor*] 12.5 mg PO BID 6AM 6PM #60 tab 03/06/20 Physician Discharge Instructions: Patient , june she rest in peace Followup: Sammy Powell MD [Primary Care Provider] - Time spent managing pt's care (in minutes): 55
[2020-10-02 14:15] LABS: Anisocytosis SLIGHT; Blood Morphology Comment NOTED (NOT SEEN); Platelet Estimate DECR; Poikilocytosis SLIGHT; Target Cells FEW
[2020-10-02] MEDS ORDERED: VANCOMYCIN 500 MG in NA CHLORIDE 0.9% 100 ML IVPB SCH (21:00)
[2020-10-08 06:24] VITALS: BP 151/98; TEMP 96
== END 2020-10-02 09:40 | disposition expired | DRG 871 ==
LOC: ER 16:30 → ERHOLD 19:46
PROVIDERS: ADMIT Family Medicine; ATTEND Family Medicine
PROC: 02HV33Z Insertion of Infusion Device into Superior Vena Cava, Percutaneous Approach (ICD-10-PCS; principal; 2020-09-30)
PROC: 5A12012 Performance of Cardiac Output, Single, Manual (ICD-10-PCS; 2020-09-30)
PROC: 0BH17EZ Insertion of Endotracheal Airway into Trachea, Via Natural or Artificial Opening (ICD-10-PCS; 2020-09-30)
PROC: 5A1935Z Respiratory Ventilation, Less than 24 Consecutive Hours (ICD-10-PCS; 2020-09-30)
DX: A41.50 Gram-negative sepsis, unspecified (principal); G92 Toxic encephalopathy; J96.01 Acute respiratory failure with hypoxia; R65.21 Severe sepsis with septic shock; J96.00 Acute respiratory failure, unspecified whether with hypoxia or hypercapnia; N39.0 Urinary tract infection, site not specified; N17.9 Acute kidney failure, unspecified; E87.2 Acidosis; I13.0 Hypertensive heart and chronic kidney disease with heart failure and stage 1 through stage 4 chronic kidney disease, or unspecified chronic kidney disease; I50.32 Chronic diastolic (congestive) heart failure; N18.4 Chronic kidney disease, stage 4 (severe); N25.81 Secondary hyperparathyroidism of renal origin; E27.2 Addisonian crisis; E87.5 Hyperkalemia; E83.51 Hypocalcemia; I46.9 Cardiac arrest, cause unspecified; K72.90 Hepatic failure, unspecified without coma; D63.8 Anemia in other chronic diseases classified elsewhere; D69.6 Thrombocytopenia, unspecified; E03.9 Hypothyroidism, unspecified; F41.8 Other specified anxiety disorders; I48.91 Unspecified atrial fibrillation; Z66 Do not resuscitate; Z20.822 Contact with and (suspected) exposure to COVID-19
CPT/HCPCS: 31500; 36415; 51702; 71045; 76770; 80048; 80053; 80061; 80076; 81003; 81015; 82550; 82728; 82805; 82947; 83540; 83605; 83735; 83970; 84145; 84439; 84443; 84466; 84481; 84484; 84550; 85025; 85610; 85730; 87040; 87077; 87086; 87088; 87186; 87205; 92950; 93005; 93306; 94002; 94003; 94760; 99291; 99292; J0610; J0692; J1170; J1265; J1630; J1644; J1720; J2250; J2370; J2405; J2543; J3010; J3370; J3411; J7030; J7040; J7050; J7060; U0003